=== PATIENT | female | born 1940 | race Caucasian/White ===

== ENCOUNTER 2016-12-28 15:41 | Outpatient (CLI) | payer OTHER, MEDICAID ==
[~2016-12-28] VITALS: Ht 160 cm; Wt 61.4 kg
[~2016-12-28 15:41] MED LIST: ACETAMINOPHEN TAB 650MG DOSE (2X325MG) PO SCH
[2016-12-28 16:00] VITALS: BP 156/60
[2016-12-28] MEDS ORDERED: CARB20TAXR PO (16:02)
[2016-12-28] MEDS ORDERED: [UNRECOGNIZED DRUG - REMARK] PO (16:02)
[2016-12-28] MEDS ORDERED: POTA10TAB PO (16:02)
[2016-12-28] MEDS ORDERED: SODIUM CHLORIDE 0.9% INJ 10 ML SYR IV PRN (16:30)
[2016-12-28] MEDS ORDERED: diphenhydrAMINE 50 MG CAP PO ONE (16:30)
[2016-12-28] MEDS ORDERED: SODIUM CHLORIDE 0.9% INJ 10 ML SYR IV SCH (18:00)
== END 2016-12-28 19:10 | disposition home or self-care (01) ==
LOC: M OPCLI4PR 15:41 → M PED 15:47 → M OPCLI4PR 19:10
PROVIDERS: ATTEND Internal Medicine Medical Oncology
DX: C92.00 Acute myeloblastic leukemia, not having achieved remission (principal); Z88.8 Allergy status to other drugs, medicaments and biological substances; Z88.5 Allergy status to narcotic agent; Z79.899 Other long term (current) drug therapy
CPT/HCPCS: 36430; 86900; 86901; P9036

== ENCOUNTER 2017-01-01 07:20 | Outpatient (CLI) | payer OTHER, MEDICAID ==
[~2017-01-01] VITALS: Ht 160 cm; Wt 61.4 kg
[~2017-01-01 07:20] MED LIST changes: +CARB20TAXR PO; +POTA10TAB PO; +[UNRECOGNIZED DRUG - REMARK] PO; +diphenhydrAMINE 25 MG CAP PO SCH
[2017-01-01] MEDS ORDERED: SODIUM CHLORIDE 0.9% INJ 10 ML SYR IV PRN (08:00)
[2017-01-01] MEDS ORDERED: SODIUM CHLORIDE 0.9% INJ 10 ML SYR IV SCH (18:00)
== END 2017-01-01 14:45 ==
LOC: M INFU 07:20
PROVIDERS: ATTEND Internal Medicine Medical Oncology
DX: C92.00 Acute myeloblastic leukemia, not having achieved remission (principal); Z95.2 Presence of prosthetic heart valve; Z88.8 Allergy status to other drugs, medicaments and biological substances; Z88.5 Allergy status to narcotic agent
CPT/HCPCS: 36415; 36430; 80195; 86850; 86900; 86901; 86920; P9036; P9038

== ENCOUNTER 2017-01-08 07:42 | Outpatient (CLI) | payer OTHER, MEDICAID ==
[~2017-01-08] VITALS: Ht 160 cm; Wt 61.4 kg
[2017-01-08] MEDS ORDERED: SODIUM CHLORIDE 0.9% INJ 10 ML SYR IV PRN (08:00)
[2017-01-08] MEDS ORDERED: SODIUM CHLORIDE 0.9% INJ 10 ML SYR IV ONE ×2 (08:00→10:00)
[2017-01-08] MEDS ORDERED: SODIUM CHLORIDE 0.9% INJ 10 ML SYR IV SCH (18:00)
== END 2017-01-08 10:15 | disposition home or self-care (01) ==
LOC: M INFU 07:42
PROVIDERS: ATTEND Internal Medicine Medical Oncology
DX: C92.00 Acute myeloblastic leukemia, not having achieved remission (principal); Z95.4 Presence of other heart-valve replacement; Z88.8 Allergy status to other drugs, medicaments and biological substances; Z92.21 Personal history of antineoplastic chemotherapy; Z79.899 Other long term (current) drug therapy
CPT/HCPCS: 36430; P9036

== ENCOUNTER 2017-01-23 11:25 | Outpatient (CLI) | payer OTHER, MEDICAID ==
[~2017-01-23] VITALS: Ht 162.6 cm; Wt 59.5 kg
[~2017-01-23 11:25] MED LIST changes: -ACETAMINOPHEN TAB 650MG DOSE (2X325MG) PO SCH; -diphenhydrAMINE 25 MG CAP PO SCH
[2017-01-23 11:35] VITALS: BP 125/59
[2017-01-23] MEDS ORDERED: ACETAMINOPHEN TAB 650MG DOSE (2X325MG) PO ONE (11:45)
[2017-01-23] MEDS ORDERED: SODIUM CHLORIDE 0.9% INJ 10 ML SYR IV PRN (11:45)
[2017-01-23] MEDS ORDERED: diphenhydrAMINE 50 MG CAP PO ONE (11:45)
[2017-01-23] MEDS ORDERED: SODIUM CHLORIDE 0.9% INJ 10 ML SYR IV SCH (18:00)
[2017-01-23 19:50] VITALS: BP 115/56
[2017-01-23 20:50] VITALS: BP 137/66
== END 2017-01-23 21:00 | disposition home or self-care (01) ==
LOC: M INFU 11:25 → M MSPAV 11:29 → M INFU 21:00
PROVIDERS: ATTEND Internal Medicine Medical Oncology
DX: C92.00 Acute myeloblastic leukemia, not having achieved remission (principal); Z88.8 Allergy status to other drugs, medicaments and biological substances; Z88.5 Allergy status to narcotic agent; Z79.899 Other long term (current) drug therapy
CPT/HCPCS: 36430; 86850; 86900; 86901; 86920; P9036; P9038

== ENCOUNTER 2017-02-05 11:02 | Outpatient (CLI) | payer OTHER, MEDICAID ==
[~2017-02-05] VITALS: Ht 160 cm; Wt 61.4 kg
[~2017-02-05 11:02] MED LIST changes: +SODIUM CHLORIDE 0.9% INJ 10 ML SYR IV SCH
[2017-02-05] MEDS ORDERED: diphenhydrAMINE 50 MG CAP PO ONE (11:15)
[2017-02-05] MEDS ORDERED: ACETAMINOPHEN TAB 650MG DOSE (2X325MG) PO ONE (11:30)
[2017-02-05] MEDS ORDERED: SODIUM CHLORIDE 0.9% INJ 10 ML SYR IV PRN (14:00)
[2017-02-05] MEDS ORDERED: SODIUM CHLORIDE 0.9% INJ 10 ML SYR IV SCH (18:00)
== END 2017-02-05 14:00 | disposition home or self-care (01) ==
LOC: M INFU 11:02
PROVIDERS: ATTEND Internal Medicine Medical Oncology
DX: C92.00 Acute myeloblastic leukemia, not having achieved remission (principal); Z95.4 Presence of other heart-valve replacement; Z88.8 Allergy status to other drugs, medicaments and biological substances; Z88.5 Allergy status to narcotic agent; Z92.21 Personal history of antineoplastic chemotherapy; Z79.899 Other long term (current) drug therapy
CPT/HCPCS: 36430; P9036

== ENCOUNTER 2017-02-08 08:43 | Outpatient (CLI) | payer OTHER, MEDICAID ==
[~2017-02-08] VITALS: Ht 160 cm; Wt 61.0 kg
[~2017-02-08 08:43] MED LIST changes: +ACETAMINOPHEN TAB 650MG DOSE (2X325MG) PO SCH; -SODIUM CHLORIDE 0.9% INJ 10 ML SYR IV SCH; +diphenhydrAMINE 25 MG CAP PO SCH
[2017-02-08] MEDS ORDERED: SODIUM CHLORIDE 0.9% INJ 10 ML SYR IV PRN (09:15)
[2017-02-08] MEDS ORDERED: SODIUM CHLORIDE 0.9% INJ 10 ML SYR IV SCH (18:00)
== END 2017-02-08 11:00 | disposition home or self-care (01) ==
LOC: M INFU 08:43
PROVIDERS: ATTEND Internal Medicine Medical Oncology
DX: C92.20 Atypical chronic myeloid leukemia, BCR/ABL-negative, not having achieved remission (principal); Z79.899 Other long term (current) drug therapy; Z88.8 Allergy status to other drugs, medicaments and biological substances; Z95.2 Presence of prosthetic heart valve
CPT/HCPCS: 36430; P9036

== ENCOUNTER 2017-02-12 07:42 | Outpatient (CLI) | payer OTHER, MEDICAID ==
[~2017-02-12] VITALS: Ht 160 cm; Wt 61.4 kg
[2017-02-12] MEDS ORDERED: SODIUM CHLORIDE 0.9% INJ 10 ML SYR IV PRN (08:00)
[2017-02-12] MEDS ORDERED: SODIUM CHLORIDE 0.9% INJ 10 ML SYR IV SCH (18:00)
== END 2017-02-12 12:30 | disposition home or self-care (01) ==
LOC: M INFU 07:42
PROVIDERS: ATTEND Internal Medicine Medical Oncology
DX: C92.00 Acute myeloblastic leukemia, not having achieved remission (principal); Z95.4 Presence of other heart-valve replacement; Z88.8 Allergy status to other drugs, medicaments and biological substances; Z88.5 Allergy status to narcotic agent; Z92.21 Personal history of antineoplastic chemotherapy; Z79.899 Other long term (current) drug therapy
CPT/HCPCS: 36430; 86850; 86900; 86901; 86920; P9036; P9038

== ENCOUNTER 2017-02-15 08:27 | Outpatient (CLI) | payer OTHER, MEDICAID ==
[~2017-02-15] VITALS: Ht 160 cm; Wt 61.4 kg
[2017-02-15] MEDS ORDERED: SODIUM CHLORIDE 0.9% INJ 10 ML SYR IV PRN (08:45)
[2017-02-15] MEDS ORDERED: SODIUM CHLORIDE 0.9% INJ 10 ML SYR IV SCH (18:00)
== END 2017-02-15 14:00 | disposition home or self-care (01) ==
LOC: M INFU 08:27
PROVIDERS: ATTEND Internal Medicine Medical Oncology
DX: C92.00 Acute myeloblastic leukemia, not having achieved remission (principal); Z88.8 Allergy status to other drugs, medicaments and biological substances; Z88.5 Allergy status to narcotic agent; Z95.4 Presence of other heart-valve replacement; Z92.21 Personal history of antineoplastic chemotherapy; Z79.899 Other long term (current) drug therapy
CPT/HCPCS: 36415; 36430; 86850; 86900; 86901; 86920; P9036; P9038

== ENCOUNTER 2017-02-19 08:02 | Outpatient (CLI) | payer OTHER, MEDICAID ==
[~2017-02-19] VITALS: Ht 160 cm; Wt 61.3 kg
[~2017-02-19 08:02] MED LIST changes: -ACETAMINOPHEN TAB 650MG DOSE (2X325MG) PO SCH; -diphenhydrAMINE 25 MG CAP PO SCH
[2017-02-19] MEDS ORDERED: SODIUM CHLORIDE 0.9% INJ 10 ML SYR IV PRN (09:00)
[2017-02-19] MEDS ORDERED: diphenhydrAMINE 50 MG CAP PO ONE (09:00)
[2017-02-19] MEDS ORDERED: ACETAMINOPHEN TAB 650MG DOSE (2X325MG) PO ONE (09:00)
[2017-02-19] MEDS ORDERED: SODIUM CHLORIDE 0.9% INJ 10 ML SYR IV SCH (18:00)
== END 2017-02-19 11:20 | disposition home or self-care (01) ==
LOC: M INFU 08:02 → M MS5PR 09:25 → M INFU 11:20
PROVIDERS: ATTEND Internal Medicine Medical Oncology
DX: C92.00 Acute myeloblastic leukemia, not having achieved remission (principal); Z95.4 Presence of other heart-valve replacement; Z92.21 Personal history of antineoplastic chemotherapy; Z88.8 Allergy status to other drugs, medicaments and biological substances; Z88.5 Allergy status to narcotic agent; Z79.899 Other long term (current) drug therapy
CPT/HCPCS: 36430; P9036

== ENCOUNTER 2017-03-01 09:15 | Outpatient (CLI) | payer OTHER, MEDICAID ==
[2017-03-01] MEDS ORDERED: SODIUM CHLORIDE 0.9% INJ 10 ML SYR IV PRN (09:30)
[2017-03-01] MEDS ORDERED: diphenhydrAMINE 50 MG CAP PO ONE (09:30)
[2017-03-01] MEDS ORDERED: ACETAMINOPHEN TAB 650MG DOSE (2X325MG) PO ONE (09:30)
[2017-03-01] MEDS ORDERED: SODIUM CHLORIDE 0.9% INJ 10 ML SYR IV SCH (18:00)
== END 2017-03-01 13:35 | disposition home or self-care (01) ==
LOC: M INFU 09:15
PROVIDERS: ATTEND Internal Medicine Medical Oncology
DX: C92.00 Acute myeloblastic leukemia, not having achieved remission (principal); Z95.4 Presence of other heart-valve replacement; Z92.21 Personal history of antineoplastic chemotherapy; Z88.8 Allergy status to other drugs, medicaments and biological substances; Z88.5 Allergy status to narcotic agent; Z79.899 Other long term (current) drug therapy
CPT/HCPCS: 36415; 36430; 86850; 86900; 86901; 86920; P9038

== ENCOUNTER 2017-03-05 07:43 | Outpatient (CLI) | payer OTHER, MEDICAID ==
[2017-03-05] MEDS: diphenhydrAMINE 25 MG CAP PO SCH (08:00)
[2017-03-05] MEDS: ACETAMINOPHEN TAB 650MG DOSE (2X325MG) PO SCH (08:01)
[2017-03-05] MEDS: SODIUM CHLORIDE 0.9% INJ 10 ML SYR IV PRN (09:55)
[2017-03-05] MEDS ORDERED: SODIUM CHLORIDE 0.9% INJ 10 ML SYR IV SCH (18:00)
== END 2017-03-05 10:30 | disposition home or self-care (01) ==
LOC: M INFU 07:43
PROVIDERS: ATTEND Internal Medicine Medical Oncology
DX: C92.00 Acute myeloblastic leukemia, not having achieved remission (principal); Z92.21 Personal history of antineoplastic chemotherapy; Z95.4 Presence of other heart-valve replacement; Z96.1 Presence of intraocular lens; Z88.8 Allergy status to other drugs, medicaments and biological substances; Z88.5 Allergy status to narcotic agent; Z79.899 Other long term (current) drug therapy
CPT/HCPCS: 36430; P9036

== ENCOUNTER 2017-03-08 07:40 | Outpatient (CLI) | payer OTHER, MEDICAID ==
[~2017-03-08 07:40] MED LIST changes: +ACETAMINOPHEN TAB 650MG DOSE (2X325MG) PO SCH; +diphenhydrAMINE 25 MG CAP PO SCH
[2017-03-08] MEDS ORDERED: SODIUM CHLORIDE 0.9% INJ 10 ML SYR IV PRN (09:15)
[2017-03-08] MEDS ORDERED: SODIUM CHLORIDE 0.9% INJ 10 ML SYR IV SCH (18:00)
== END 2017-03-08 11:30 | disposition home or self-care (01) ==
LOC: M INFU 07:40
PROVIDERS: ATTEND Internal Medicine Medical Oncology
DX: C92.00 Acute myeloblastic leukemia, not having achieved remission (principal); Z92.21 Personal history of antineoplastic chemotherapy; Z95.2 Presence of prosthetic heart valve; Z96.1 Presence of intraocular lens; Z88.8 Allergy status to other drugs, medicaments and biological substances; Z88.5 Allergy status to narcotic agent; Z79.899 Other long term (current) drug therapy
CPT/HCPCS: 36415; 36430; 86850; 86900; 86901; 86920; P9038

== ENCOUNTER 2017-03-12 07:50 | Outpatient (CLI) | payer OTHER, MEDICAID ==
[~2017-03-12] VITALS: Ht 160 cm; Wt 61.4 kg
[~2017-03-12 07:50] MED LIST changes: +ACETAMINOPHEN TAB 650MG DOSE (2X325MG) PO ONE; -ACETAMINOPHEN TAB 650MG DOSE (2X325MG) PO SCH; +SODIUM CHLORIDE 0.9% INJ 10 ML SYR IV PRN; -diphenhydrAMINE 25 MG CAP PO SCH; +diphenhydrAMINE 50 MG CAP PO ONE
[2017-03-12] MEDS ORDERED: SODIUM CHLORIDE 0.9% INJ 10 ML SYR IV SCH (18:00)
== END 2017-03-12 12:20 | disposition home or self-care (01) ==
LOC: M INFU 07:50
PROVIDERS: ATTEND Internal Medicine Medical Oncology
DX: C92.00 Acute myeloblastic leukemia, not having achieved remission (principal); R01.1 Cardiac murmur, unspecified; Z95.2 Presence of prosthetic heart valve; Z87.442 Personal history of urinary calculi; Z78.0 Asymptomatic menopausal state; Z88.5 Allergy status to narcotic agent; Z88.8 Allergy status to other drugs, medicaments and biological substances
CPT/HCPCS: 36415; 36430; 86850; 86900; 86901; 86920; P9036; P9038

== ENCOUNTER 2017-04-02 08:01 | Outpatient (CLI) | payer OTHER, MEDICAID ==
[~2017-04-02 08:01] MED LIST changes: -ACETAMINOPHEN TAB 650MG DOSE (2X325MG) PO ONE; +ACETAMINOPHEN TAB 650MG DOSE (2X325MG) PO SCH; -SODIUM CHLORIDE 0.9% INJ 10 ML SYR IV PRN; -diphenhydrAMINE 50 MG CAP PO ONE
[2017-04-02] MEDS ORDERED: diphenhydrAMINE 50 MG CAP PO ONE (08:15)
[2017-04-02] MEDS ORDERED: SODIUM CHLORIDE 0.9% INJ 10 ML SYR IV PRN (08:15)
[2017-04-02] MEDS ORDERED: SODIUM CHLORIDE 0.9% INJ 10 ML SYR IV SCH (18:00)
== END 2017-04-02 10:25 | disposition home or self-care (01) ==
LOC: M INFU 08:01
PROVIDERS: ATTEND Internal Medicine Medical Oncology
DX: C92.00 Acute myeloblastic leukemia, not having achieved remission (principal); Z95.2 Presence of prosthetic heart valve; Z88.5 Allergy status to narcotic agent; Z88.8 Allergy status to other drugs, medicaments and biological substances; Z92.21 Personal history of antineoplastic chemotherapy; Z79.899 Other long term (current) drug therapy
CPT/HCPCS: 36430; P9036

== ENCOUNTER 2017-04-05 11:26 | Outpatient (CLI) | payer OTHER, MEDICAID ==
[~2017-04-05 11:26] MED LIST changes: -ACETAMINOPHEN TAB 650MG DOSE (2X325MG) PO SCH
[2017-04-05] MEDS ORDERED: ACETAMINOPHEN TAB 650MG DOSE (2X325MG) PO ONE (12:45)
[2017-04-05] MEDS ORDERED: diphenhydrAMINE 50 MG CAP PO ONE (12:45)
[2017-04-05] MEDS ORDERED: SODIUM CHLORIDE 0.9% INJ 10 ML SYR IV PRN (15:15)
[2017-04-05] MEDS ORDERED: SODIUM CHLORIDE 0.9% INJ 10 ML SYR IV SCH (18:00)
== END 2017-04-05 15:30 | disposition home or self-care (01) ==
LOC: M INFU 11:26
PROVIDERS: ATTEND Internal Medicine Medical Oncology
DX: C92.00 Acute myeloblastic leukemia, not having achieved remission (principal); Z95.2 Presence of prosthetic heart valve; Z96.1 Presence of intraocular lens; Z92.21 Personal history of antineoplastic chemotherapy; Z88.5 Allergy status to narcotic agent; Z88.8 Allergy status to other drugs, medicaments and biological substances; Z79.899 Other long term (current) drug therapy
CPT/HCPCS: 36415; 36430; 86850; 86900; 86901; 86920; P9038

== ENCOUNTER 2017-04-09 10:36 | Outpatient (CLI) | payer OTHER, MEDICAID ==
[~2017-04-09] VITALS: Ht 160 cm; Wt 61.3 kg
[2017-04-09] MEDS ORDERED: diphenhydrAMINE 50 MG CAP PO ONE (11:00)
[2017-04-09] MEDS ORDERED: ACETAMINOPHEN TAB 650MG DOSE (2X325MG) PO ONE (11:00)
[2017-04-09] MEDS ORDERED: SODIUM CHLORIDE 0.9% INJ 10 ML SYR IV PRN (11:00)
[2017-04-09] MEDS ORDERED: SODIUM CHLORIDE 0.9% INJ 10 ML SYR IV SCH (18:00)
== END 2017-04-09 12:55 | disposition home or self-care (01) ==
LOC: M INFU 10:36
PROVIDERS: ATTEND Internal Medicine Medical Oncology
DX: C92.00 Acute myeloblastic leukemia, not having achieved remission (principal); Z92.21 Personal history of antineoplastic chemotherapy; Z96.1 Presence of intraocular lens; Z95.2 Presence of prosthetic heart valve; Z88.8 Allergy status to other drugs, medicaments and biological substances; Z88.5 Allergy status to narcotic agent; Z79.899 Other long term (current) drug therapy
CPT/HCPCS: 36430; P9036

== ENCOUNTER 2017-04-23 10:59 | Outpatient (CLI) | payer OTHER, MEDICAID ==
[~2017-04-23] VITALS: Ht 160 cm; Wt 61.3 kg
[~2017-04-23 10:59] MED LIST changes: +ACETAMINOPHEN TAB 650MG DOSE (2X325MG) PO SCH; +SODIUM CHLORIDE 0.9% INJ 10 ML SYR IV PRN; +diphenhydrAMINE 25 MG CAP PO SCH
[2017-04-23] MEDS ORDERED: SODIUM CHLORIDE 0.9% INJ 10 ML SYR IV SCH (18:00)
== END 2017-04-23 13:00 | disposition home or self-care (01) ==
LOC: M INFU 10:59
PROVIDERS: ATTEND Internal Medicine Medical Oncology
DX: C92.00 Acute myeloblastic leukemia, not having achieved remission (principal); Z95.2 Presence of prosthetic heart valve; Z92.21 Personal history of antineoplastic chemotherapy; Z88.8 Allergy status to other drugs, medicaments and biological substances; Z88.5 Allergy status to narcotic agent; Z79.899 Other long term (current) drug therapy
CPT/HCPCS: 36430; P9036

== ENCOUNTER 2017-04-30 11:00 | Outpatient (CLI) | payer OTHER, MEDICAID ==
[~2017-04-30] VITALS: Ht 160 cm; Wt 61.3 kg
[~2017-04-30 11:00] MED LIST changes: -ACETAMINOPHEN TAB 650MG DOSE (2X325MG) PO SCH; -SODIUM CHLORIDE 0.9% INJ 10 ML SYR IV PRN; -diphenhydrAMINE 25 MG CAP PO SCH
[2017-04-30] MEDS ORDERED: SODIUM CHLORIDE 0.9% INJ 10 ML SYR IV PRN (11:30)
[2017-04-30] MEDS ORDERED: ACETAMINOPHEN TAB 650MG DOSE (2X325MG) PO ONE (11:30)
[2017-04-30] MEDS ORDERED: diphenhydrAMINE 50 MG CAP PO ONE (11:30)
[2017-04-30] MEDS ORDERED: SODIUM CHLORIDE 0.9% INJ 10 ML SYR IV SCH (18:00)
== END 2017-04-30 13:50 | disposition home or self-care (01) ==
LOC: M INFU 11:00
PROVIDERS: ATTEND Internal Medicine Medical Oncology
DX: C92.00 Acute myeloblastic leukemia, not having achieved remission (principal); Z95.2 Presence of prosthetic heart valve; Z96.1 Presence of intraocular lens; Z92.21 Personal history of antineoplastic chemotherapy; Z88.5 Allergy status to narcotic agent; Z88.8 Allergy status to other drugs, medicaments and biological substances; Z79.899 Other long term (current) drug therapy
CPT/HCPCS: 36430; P9036

== ENCOUNTER 2017-05-07 07:42 | Outpatient (CLI) | payer OTHER, MEDICAID ==
[~2017-05-07] VITALS: Ht 160 cm; Wt 61.3 kg
[2017-05-07] MEDS ORDERED: SODIUM CHLORIDE 0.9% INJ 10 ML SYR IV PRN (08:00)
[2017-05-07] MEDS ORDERED: ACETAMINOPHEN TAB 650MG DOSE (2X325MG) PO ONE (08:00)
[2017-05-07] MEDS ORDERED: diphenhydrAMINE 50 MG CAP PO ONE (08:00)
[2017-05-07] MEDS ORDERED: SODIUM CHLORIDE 0.9% INJ 10 ML SYR IV SCH (18:00)
== END 2017-05-07 09:55 | disposition home or self-care (01) ==
LOC: M INFU 07:42
PROVIDERS: ATTEND Internal Medicine Medical Oncology
DX: C92.00 Acute myeloblastic leukemia, not having achieved remission (principal); Z96.1 Presence of intraocular lens; Z92.21 Personal history of antineoplastic chemotherapy; Z95.2 Presence of prosthetic heart valve; Z88.8 Allergy status to other drugs, medicaments and biological substances; Z88.5 Allergy status to narcotic agent; Z79.899 Other long term (current) drug therapy
CPT/HCPCS: 36430; P9036

== ENCOUNTER 2017-05-17 09:35 | Outpatient (CLI) | payer OTHER, MEDICAID ==
[2017-05-17] MEDS: diphenhydrAMINE 25 MG CAP PO (09:56)
[2017-05-17] MEDS: ACETAMINOPHEN TAB 650MG DOSE (2X325MG) PO (09:56)
[2017-05-17 09:59] LABS: IMMEDIATE SPIN CROSSMATCH 1
[2017-05-17 11:43] LABS: IMMEDIATE SPIN CROSSMATCH 1 1
[2017-05-17] MEDS: SODIUM CHLORIDE 0.9% INJ 10 ML SYR IV (13:47)
[2017-05-17] MEDS ORDERED: SODIUM CHLORIDE 0.9% INJ 10 ML SYR IV (18:00)
== END 2017-05-17 13:55 | disposition home or self-care (01) ==
LOC: M INFU 09:35
DX: C92.00 Acute myeloblastic leukemia, not having achieved remission (principal); Z95.2 Presence of prosthetic heart valve; Z96.1 Presence of intraocular lens; Z92.21 Personal history of antineoplastic chemotherapy; Z88.5 Allergy status to narcotic agent; Z88.8 Allergy status to other drugs, medicaments and biological substances; Z79.899 Other long term (current) drug therapy
CPT/HCPCS: 36430

== ENCOUNTER 2017-05-22 07:36 | Outpatient (CLI) | payer OTHER, MEDICAID ==
[2017-05-22] MEDS: ACETAMINOPHEN TAB 650MG DOSE (2X325MG) PO (07:56)
[2017-05-22] MEDS: diphenhydrAMINE 50 MG CAP PO (07:56)
[2017-05-22 08:04] LABS: IMMEDIATE SPIN CROSSMATCH 1
[2017-05-22] MEDS: SODIUM CHLORIDE 0.9% INJ 10 ML SYR IV (09:28)
[2017-05-22] MEDS ORDERED: SODIUM CHLORIDE 0.9% INJ 10 ML SYR IV (18:00)
== END 2017-05-22 09:45 | disposition home or self-care (01) ==
LOC: M INFU 07:36
PROVIDERS: Specialist
DX: C92.90 Myeloid leukemia, unspecified, not having achieved remission (principal); Z79.899 Other long term (current) drug therapy; Z95.2 Presence of prosthetic heart valve; Z88.5 Allergy status to narcotic agent; Z88.8 Allergy status to other drugs, medicaments and biological substances; Z92.21 Personal history of antineoplastic chemotherapy
CPT/HCPCS: 36430

== ENCOUNTER 2017-05-28 08:35 | Outpatient (CLI) | payer OTHER, MEDICAID ==
[2017-05-28] MEDS: diphenhydrAMINE 25 MG CAP PO (09:12)
[2017-05-28] MEDS: ACETAMINOPHEN TAB 650MG DOSE (2X325MG) PO (09:12)
[2017-05-28 09:35] LABS: IMMEDIATE SPIN CROSSMATCH 1
[2017-05-28 11:01] LABS: IMMEDIATE SPIN CROSSMATCH 1 1
[2017-05-28] MEDS: SODIUM CHLORIDE 0.9% INJ 10 ML SYR IV (13:16)
[2017-05-28] MEDS ORDERED: SODIUM CHLORIDE 0.9% INJ 10 ML SYR IV (18:00)
== END 2017-05-28 13:30 | disposition home or self-care (01) ==
LOC: M INFU 08:35
DX: C92.00 Acute myeloblastic leukemia, not having achieved remission (principal); Z79.899 Other long term (current) drug therapy; Z88.5 Allergy status to narcotic agent; Z88.8 Allergy status to other drugs, medicaments and biological substances
CPT/HCPCS: 36430

== ENCOUNTER 2017-05-31 12:31 | Outpatient (CLI) | payer OTHER, MEDICAID ==
[~2017-05-31 12:31] MED LIST changes: -CARB20TAXR PO; -POTA10TAB PO; +SODIUM CHLORIDE 0.9% INJ 10 ML SYR IV; -[UNRECOGNIZED DRUG - REMARK] PO
[2017-05-31] MEDS: ACETAMINOPHEN TAB 650MG DOSE (2X325MG) PO (12:46)
[2017-05-31] MEDS: diphenhydrAMINE 25 MG CAP PO (12:46)
[2017-05-31 13:00] LABS: IMMEDIATE SPIN CROSSMATCH 1
[2017-05-31] MEDS: SODIUM CHLORIDE 0.9% INJ 10 ML SYR IV (14:30)
== END 2017-05-31 14:30 | disposition home or self-care (01) ==
LOC: M INFU 12:31
DX: C92.00 Acute myeloblastic leukemia, not having achieved remission (principal); Z79.899 Other long term (current) drug therapy; Z88.5 Allergy status to narcotic agent; Z88.8 Allergy status to other drugs, medicaments and biological substances
CPT/HCPCS: 36430

== ENCOUNTER 2017-06-05 11:44 | Outpatient (CLI) | payer OTHER, MEDICAID ==
[2017-06-05] MEDS: diphenhydrAMINE 50 MG CAP PO (12:05)
[2017-06-05] MEDS: ACETAMINOPHEN TAB 650MG DOSE (2X325MG) PO (12:05)
[2017-06-05 12:20] LABS: IMMEDIATE SPIN CROSSMATCH 1
[2017-06-05] MEDS: SODIUM CHLORIDE 0.9% INJ 10 ML SYR IV (14:55)
[2017-06-05] MEDS ORDERED: SODIUM CHLORIDE 0.9% INJ 10 ML SYR IV (18:00)
== END 2017-06-05 14:45 | disposition home or self-care (01) ==
LOC: M INFU 11:44
DX: C92.00 Acute myeloblastic leukemia, not having achieved remission (principal); Z95.2 Presence of prosthetic heart valve; Z88.5 Allergy status to narcotic agent; Z92.21 Personal history of antineoplastic chemotherapy; Z79.899 Other long term (current) drug therapy
CPT/HCPCS: 36430

== ENCOUNTER 2017-06-07 11:45 | Outpatient (CLI) | payer OTHER, MEDICAID ==
[2017-06-07] MEDS: diphenhydrAMINE 50 MG CAP PO (12:47)
[2017-06-07] MEDS: ACETAMINOPHEN TAB 650MG DOSE (2X325MG) PO (12:47)
[2017-06-07 13:37] LABS: IMMEDIATE SPIN CROSSMATCH 1 1
[2017-06-07] MEDS: SODIUM CHLORIDE 0.9% INJ 10 ML SYR IV (15:37)
[2017-06-07] MEDS ORDERED: SODIUM CHLORIDE 0.9% INJ 10 ML SYR IV (18:00)
== END 2017-06-07 15:45 | disposition home or self-care (01) ==
LOC: M INFU 11:45
DX: C92.00 Acute myeloblastic leukemia, not having achieved remission (principal); Z88.8 Allergy status to other drugs, medicaments and biological substances; Z88.5 Allergy status to narcotic agent; Z92.21 Personal history of antineoplastic chemotherapy; Z79.899 Other long term (current) drug therapy
CPT/HCPCS: 36430

== ENCOUNTER 2017-06-11 11:33 | Outpatient (CLI) | payer OTHER, MEDICAID ==
[2017-06-11 12:13] LABS: IMMEDIATE SPIN CROSSMATCH 1
[2017-06-11] MEDS: diphenhydrAMINE 50 MG CAP PO (12:17)
[2017-06-11] MEDS: ACETAMINOPHEN TAB 650MG DOSE (2X325MG) PO (12:18)
[2017-06-11] MEDS: SODIUM CHLORIDE 0.9% INJ 10 ML SYR IV (14:11)
[2017-06-11] MEDS ORDERED: SODIUM CHLORIDE 0.9% INJ 10 ML SYR IV (18:00)
[2017-06-18 08:08] LABS: IMMEDIATE SPIN CROSSMATCH 1
== END 2017-06-11 14:25 | disposition home or self-care (01) ==
LOC: M INFU 11:33
DX: C92.00 Acute myeloblastic leukemia, not having achieved remission (principal); Z92.21 Personal history of antineoplastic chemotherapy; Z95.2 Presence of prosthetic heart valve; Z88.5 Allergy status to narcotic agent; Z88.8 Allergy status to other drugs, medicaments and biological substances; Z79.899 Other long term (current) drug therapy
CPT/HCPCS: 36430

== ENCOUNTER 2017-06-18 07:46 | Outpatient (CLI) | payer OTHER, MEDICAID ==
[2017-06-18] MEDS: ACETAMINOPHEN TAB 650MG DOSE (2X325MG) PO (08:07)
[2017-06-18] MEDS: diphenhydrAMINE 25 MG CAP PO ×2 (08:07→08:11)
[2017-06-18] MEDS: SODIUM CHLORIDE 0.9% INJ 10 ML SYR IV (09:38)
[2017-06-18] MEDS ORDERED: SODIUM CHLORIDE 0.9% INJ 10 ML SYR IV (18:00)
== END 2017-06-18 09:40 | disposition home or self-care (01) ==
LOC: M INFU 07:46
DX: C92.00 Acute myeloblastic leukemia, not having achieved remission (principal); Z92.21 Personal history of antineoplastic chemotherapy; Z95.2 Presence of prosthetic heart valve; Z88.5 Allergy status to narcotic agent; Z88.8 Allergy status to other drugs, medicaments and biological substances; Z79.899 Other long term (current) drug therapy
CPT/HCPCS: 36430

== ENCOUNTER 2017-06-21 10:09 | Outpatient (CLI) | payer OTHER, MEDICAID ==
[2017-06-21] MEDS: diphenhydrAMINE 50 MG CAP PO (11:11)
[2017-06-21] MEDS: ACETAMINOPHEN TAB 650MG DOSE (2X325MG) PO (11:11)
[2017-06-21 11:21] LABS: IMMEDIATE SPIN CROSSMATCH 1
[2017-06-21 12:54] LABS: IMMEDIATE SPIN CROSSMATCH 1 1
[2017-06-21] MEDS: SODIUM CHLORIDE 0.9% INJ 10 ML SYR IV (14:56)
[2017-06-21] MEDS ORDERED: SODIUM CHLORIDE 0.9% INJ 10 ML SYR IV (18:00)
== END 2017-06-21 15:00 | disposition home or self-care (01) ==
LOC: M INFU 10:09
DX: C92.00 Acute myeloblastic leukemia, not having achieved remission (principal); Z92.21 Personal history of antineoplastic chemotherapy; Z79.899 Other long term (current) drug therapy; Z88.5 Allergy status to narcotic agent; Z88.8 Allergy status to other drugs, medicaments and biological substances; Z95.2 Presence of prosthetic heart valve
CPT/HCPCS: 36430

== ENCOUNTER 2017-06-25 08:50 | Outpatient (CLI) | payer OTHER, MEDICAID ==
[2017-06-25] MEDS: diphenhydrAMINE 25 MG CAP PO (09:05)
[2017-06-25] MEDS: ACETAMINOPHEN TAB 650MG DOSE (2X325MG) PO (09:06)
[2017-06-25 09:13] LABS: IMMEDIATE SPIN CROSSMATCH 1
[2017-06-25] MEDS: SODIUM CHLORIDE 0.9% INJ 10 ML SYR IV (11:08)
[2017-06-25] MEDS ORDERED: SODIUM CHLORIDE 0.9% INJ 10 ML SYR IV (18:00)
== END 2017-06-25 11:30 | disposition home or self-care (01) ==
LOC: M INFU 08:50
DX: C92.00 Acute myeloblastic leukemia, not having achieved remission (principal); Z79.899 Other long term (current) drug therapy; Z88.5 Allergy status to narcotic agent; Z88.8 Allergy status to other drugs, medicaments and biological substances
CPT/HCPCS: 36430

== ENCOUNTER 2017-07-02 09:21 | Outpatient (CLI) | payer OTHER, MEDICAID ==
[2017-07-02] MEDS: diphenhydrAMINE 25 MG CAP PO (09:29)
[2017-07-02] MEDS: ACETAMINOPHEN TAB 650MG DOSE (2X325MG) PO (09:29)
[2017-07-02 09:40] LABS: IMMEDIATE SPIN CROSSMATCH 1
[2017-07-02 11:15] LABS: IMMEDIATE SPIN CROSSMATCH 1 2
[2017-07-02] MEDS: SODIUM CHLORIDE 0.9% INJ 10 ML SYR IV (13:15)
[2017-07-02] MEDS ORDERED: SODIUM CHLORIDE 0.9% INJ 10 ML SYR IV (18:00)
== END 2017-07-02 13:45 | disposition home or self-care (01) ==
LOC: M INFU 09:21
DX: C92.00 Acute myeloblastic leukemia, not having achieved remission (principal); Z79.899 Other long term (current) drug therapy; Z88.8 Allergy status to other drugs, medicaments and biological substances
CPT/HCPCS: 36430

== ENCOUNTER 2017-07-05 08:40 | Outpatient (CLI) | payer OTHER, MEDICAID ==
[2017-07-05] MEDS: diphenhydrAMINE 25 MG CAP PO (10:35)
[2017-07-05] MEDS: ACETAMINOPHEN TAB 650MG DOSE (2X325MG) PO (10:36)
[2017-07-05 10:57] LABS: IMMEDIATE SPIN CROSSMATCH 1
[2017-07-05] MEDS: SODIUM CHLORIDE 0.9% INJ 10 ML SYR IV (12:26)
[2017-07-05] MEDS ORDERED: SODIUM CHLORIDE 0.9% INJ 10 ML SYR IV (18:00)
== END 2017-07-05 12:45 | disposition home or self-care (01) ==
LOC: M INFU 08:40
DX: C92.90 Myeloid leukemia, unspecified, not having achieved remission (principal); D64.9 Anemia, unspecified; Z95.2 Presence of prosthetic heart valve; Z87.442 Personal history of urinary calculi; Z79.899 Other long term (current) drug therapy; Z88.5 Allergy status to narcotic agent; Z88.8 Allergy status to other drugs, medicaments and biological substances
CPT/HCPCS: 36430

== ENCOUNTER 2017-07-09 10:49 | Outpatient (CLI) | payer OTHER, MEDICAID ==
[2017-07-09] MEDS: diphenhydrAMINE 25 MG CAP PO (11:10)
[2017-07-09] MEDS: ACETAMINOPHEN TAB 650MG DOSE (2X325MG) PO (11:11)
[2017-07-09 11:17] LABS: IMMEDIATE SPIN CROSSMATCH 1
[2017-07-09] MEDS: SODIUM CHLORIDE 0.9% INJ 10 ML SYR IV (12:41)
[2017-07-09] MEDS ORDERED: SODIUM CHLORIDE 0.9% INJ 10 ML SYR IV (18:00)
== END 2017-07-09 12:50 | disposition home or self-care (01) ==
LOC: M INFU 10:49
DX: C92.90 Myeloid leukemia, unspecified, not having achieved remission (principal); D64.9 Anemia, unspecified; Z95.4 Presence of other heart-valve replacement; Z87.442 Personal history of urinary calculi; Z79.899 Other long term (current) drug therapy; Z88.8 Allergy status to other drugs, medicaments and biological substances
CPT/HCPCS: 36430

== ENCOUNTER 2017-07-12 08:40 | Outpatient (CLI) | payer OTHER, MEDICAID ==
[2017-07-12] MEDS: diphenhydrAMINE 25 MG CAP PO (09:07)
[2017-07-12] MEDS: ACETAMINOPHEN TAB 650MG DOSE (2X325MG) PO (09:07)
[2017-07-12 09:12] LABS: IMMEDIATE SPIN CROSSMATCH 1
[2017-07-12 10:52] LABS: IMMEDIATE SPIN CROSSMATCH 1 1
[2017-07-12] MEDS: SODIUM CHLORIDE 0.9% INJ 10 ML SYR IV (12:47)
[2017-07-12] MEDS ORDERED: SODIUM CHLORIDE 0.9% INJ 10 ML SYR IV (18:00)
== END 2017-07-12 13:00 | disposition home or self-care (01) ==
LOC: M INFU 08:40
DX: C92.90 Myeloid leukemia, unspecified, not having achieved remission (principal); D64.9 Anemia, unspecified; Z79.899 Other long term (current) drug therapy; Z88.5 Allergy status to narcotic agent; Z88.8 Allergy status to other drugs, medicaments and biological substances; Z95.4 Presence of other heart-valve replacement; Z87.442 Personal history of urinary calculi
CPT/HCPCS: 36430

== ENCOUNTER 2017-07-16 11:28 | Outpatient (CLI) | payer OTHER, MEDICAID ==
[2017-07-16] MEDS: ACETAMINOPHEN TAB 650MG DOSE (2X325MG) PO (11:41)
[2017-07-16] MEDS: diphenhydrAMINE 25 MG CAP PO (11:42)
[2017-07-16 11:47] LABS: IMMEDIATE SPIN CROSSMATCH 1
[2017-07-16] MEDS: SODIUM CHLORIDE 0.9% INJ 10 ML SYR IV (13:29)
[2017-07-16] MEDS ORDERED: SODIUM CHLORIDE 0.9% INJ 10 ML SYR IV (18:00)
== END 2017-07-16 14:00 ==
LOC: M INFU 11:28
DX: C92.00 Acute myeloblastic leukemia, not having achieved remission (principal); Z79.899 Other long term (current) drug therapy; Z88.5 Allergy status to narcotic agent; Z88.8 Allergy status to other drugs, medicaments and biological substances; Z92.21 Personal history of antineoplastic chemotherapy; Z95.2 Presence of prosthetic heart valve
CPT/HCPCS: 36430

== ENCOUNTER 2017-07-23 08:54 | Outpatient (CLI) | payer OTHER, MEDICAID ==
[2017-07-23] MEDS: ACETAMINOPHEN TAB 650MG DOSE (2X325MG) PO (09:08)
[2017-07-23] MEDS: diphenhydrAMINE 25 MG CAP PO (09:08)
[2017-07-23 09:27] LABS: IMMEDIATE SPIN CROSSMATCH 1
[2017-07-23 11:25] LABS: IMMEDIATE SPIN CROSSMATCH 1 1
[2017-07-23] MEDS: SODIUM CHLORIDE 0.9% INJ 10 ML SYR IV (13:06)
[2017-07-23] MEDS ORDERED: SODIUM CHLORIDE 0.9% INJ 10 ML SYR IV (18:00)
== END 2017-07-23 13:00 | disposition home or self-care (01) ==
LOC: M INFU 08:54
DX: C92.00 Acute myeloblastic leukemia, not having achieved remission (principal); Z88.8 Allergy status to other drugs, medicaments and biological substances; Z88.5 Allergy status to narcotic agent; Z95.2 Presence of prosthetic heart valve; Z92.21 Personal history of antineoplastic chemotherapy; Z79.899 Other long term (current) drug therapy
CPT/HCPCS: 36430

== ENCOUNTER 2017-07-26 10:41 | Outpatient (CLI) | payer OTHER, MEDICAID ==
[2017-07-26] MEDS: ACETAMINOPHEN TAB 650MG DOSE (2X325MG) PO (11:53)
[2017-07-26] MEDS: diphenhydrAMINE 50 MG CAP PO (11:53)
[2017-07-26 12:40] LABS: IMMEDIATE SPIN CROSSMATCH 1
[2017-07-26 14:34] LABS: IMMEDIATE SPIN CROSSMATCH 1 1
[2017-07-26] MEDS: SODIUM CHLORIDE 0.9% INJ 10 ML SYR IV (16:41)
[2017-07-26] MEDS ORDERED: SODIUM CHLORIDE 0.9% INJ 10 ML SYR IV (18:00)
== END 2017-07-26 17:05 | disposition home or self-care (01) ==
LOC: M INFU 10:41
DX: C92.00 Acute myeloblastic leukemia, not having achieved remission (principal); Z79.899 Other long term (current) drug therapy; Z88.5 Allergy status to narcotic agent; Z88.8 Allergy status to other drugs, medicaments and biological substances; Z95.2 Presence of prosthetic heart valve; Z92.21 Personal history of antineoplastic chemotherapy
CPT/HCPCS: 36430

== ENCOUNTER 2017-08-02 11:58 | Outpatient (CLI) | payer OTHER, MEDICAID ==
[2017-08-02] MEDS: ACETAMINOPHEN TAB 650MG DOSE (2X325MG) PO (12:23)
[2017-08-02] MEDS: diphenhydrAMINE 25 MG CAP PO (12:24)
[2017-08-02 12:26] LABS: IMMEDIATE SPIN CROSSMATCH 1
[2017-08-02] MEDS: SODIUM CHLORIDE 0.9% INJ 10 ML SYR IV (14:02)
[2017-08-02] MEDS ORDERED: SODIUM CHLORIDE 0.9% INJ 10 ML SYR IV (18:00)
== END 2017-08-02 14:20 | disposition home or self-care (01) ==
LOC: M INFU 11:58
DX: C92.00 Acute myeloblastic leukemia, not having achieved remission (principal); Z79.899 Other long term (current) drug therapy; Z88.5 Allergy status to narcotic agent; Z88.8 Allergy status to other drugs, medicaments and biological substances
CPT/HCPCS: 36430

== ENCOUNTER 2017-08-06 11:48 | Outpatient (CLI) | payer OTHER, MEDICAID ==
[2017-08-06] MEDS ORDERED: SODIUM CHLORIDE 0.9% INJ 10 ML SYR IV (12:15)
[2017-08-06] MEDS: diphenhydrAMINE 25 MG CAP PO (13:06)
[2017-08-06] MEDS: ACETAMINOPHEN TAB 650MG DOSE (2X325MG) PO (13:06)
[2017-08-06 13:08] LABS: IMMEDIATE SPIN CROSSMATCH 1
[2017-08-06 14:44] LABS: IMMEDIATE SPIN CROSSMATCH 1 1
[2017-08-06] MEDS: SODIUM CHLORIDE 0.9% INJ 10 ML SYR IV (16:24)
== END 2017-08-06 17:05 | disposition home or self-care (01) ==
LOC: M INFU 11:48
DX: C92.00 Acute myeloblastic leukemia, not having achieved remission (principal); Z95.2 Presence of prosthetic heart valve; Z96.1 Presence of intraocular lens; Z88.5 Allergy status to narcotic agent; Z88.8 Allergy status to other drugs, medicaments and biological substances; Z79.899 Other long term (current) drug therapy
CPT/HCPCS: 36430

== ENCOUNTER 2017-08-09 07:50 | Outpatient (CLI) | payer OTHER, MEDICAID ==
[2017-08-09] MEDS: diphenhydrAMINE 25 MG CAP PO (14:56)
[2017-08-09] MEDS: ACETAMINOPHEN TAB 650MG DOSE (2X325MG) PO (14:57)
[2017-08-09 15:02] LABS: IMMEDIATE SPIN CROSSMATCH 1
[2017-08-09] MEDS: SODIUM CHLORIDE 0.9% INJ 10 ML SYR IV (17:02)
== END 2017-08-09 17:05 | disposition home or self-care (01) ==
LOC: M INFU 07:50
DX: C92.00 Acute myeloblastic leukemia, not having achieved remission (principal); Z95.2 Presence of prosthetic heart valve; Z96.1 Presence of intraocular lens; Z88.5 Allergy status to narcotic agent; Z88.8 Allergy status to other drugs, medicaments and biological substances; Z92.21 Personal history of antineoplastic chemotherapy; Z79.899 Other long term (current) drug therapy
CPT/HCPCS: 36430

== ENCOUNTER 2017-08-13 07:47 | Outpatient (CLI) | payer OTHER, MEDICAID ==
[2017-08-13 08:02] LABS: IMMEDIATE SPIN CROSSMATCH 1
[2017-08-13] MEDS: ACETAMINOPHEN TAB 650MG DOSE (2X325MG) PO (08:04)
[2017-08-13] MEDS: diphenhydrAMINE 25 MG CAP PO (08:04)
[2017-08-13] MEDS: SODIUM CHLORIDE 0.9% INJ 10 ML SYR IV (10:00)
[2017-08-13] MEDS ORDERED: SODIUM CHLORIDE 0.9% INJ 10 ML SYR IV (18:00)
== END 2017-08-13 10:30 | disposition home or self-care (01) ==
LOC: M INFU 07:47
DX: C92.00 Acute myeloblastic leukemia, not having achieved remission (principal); D64.9 Anemia, unspecified; Z95.2 Presence of prosthetic heart valve; Z96.1 Presence of intraocular lens; Z88.5 Allergy status to narcotic agent; Z88.8 Allergy status to other drugs, medicaments and biological substances; Z79.899 Other long term (current) drug therapy
CPT/HCPCS: 36430

== ENCOUNTER 2017-08-16 10:35 | Outpatient (CLI) | payer OTHER, MEDICAID ==
[2017-08-16] MEDS ORDERED: SODIUM CHLORIDE 0.9% INJ 10 ML SYR IV ×2 (10:45→18:00)
[2017-08-16] MEDS: ACETAMINOPHEN TAB 650MG DOSE (2X325MG) PO (10:59)
[2017-08-16] MEDS: diphenhydrAMINE 25 MG CAP PO (11:00)
[2017-08-16 11:04] LABS: IMMEDIATE SPIN CROSSMATCH 1
[2017-08-16 12:36] LABS: IMMEDIATE SPIN CROSSMATCH 1 1
== END 2017-08-16 15:15 | disposition home or self-care (01) ==
LOC: M INFU 10:35
DX: C92.00 Acute myeloblastic leukemia, not having achieved remission (principal); D64.9 Anemia, unspecified; Z79.899 Other long term (current) drug therapy; Z88.8 Allergy status to other drugs, medicaments and biological substances; Z95.2 Presence of prosthetic heart valve; Z87.442 Personal history of urinary calculi
CPT/HCPCS: 36430

== ENCOUNTER 2017-08-20 10:34 | Outpatient (CLI) | payer OTHER, MEDICAID ==
[2017-08-20] MEDS: diphenhydrAMINE 25 MG CAP PO (11:11)
[2017-08-20] MEDS: ACETAMINOPHEN TAB 650MG DOSE (2X325MG) PO (11:11)
[2017-08-20 11:27] LABS: IMMEDIATE SPIN CROSSMATCH 1
[2017-08-20] MEDS: SODIUM CHLORIDE 0.9% INJ 10 ML SYR IV (13:20)
[2017-08-20] MEDS ORDERED: SODIUM CHLORIDE 0.9% INJ 10 ML SYR IV (18:00)
== END 2017-08-20 13:30 | disposition home or self-care (01) ==
LOC: M INFU 10:34
DX: C92.00 Acute myeloblastic leukemia, not having achieved remission (principal); D64.9 Anemia, unspecified; Z79.899 Other long term (current) drug therapy; Z88.0 Allergy status to penicillin; Z95.2 Presence of prosthetic heart valve; Z87.442 Personal history of urinary calculi
CPT/HCPCS: 36430

== ENCOUNTER 2017-08-30 06:50 | Outpatient (CLI) | payer OTHER, MEDICAID ==
[2017-08-30] MEDS: diphenhydrAMINE 50 MG CAP PO (07:21)
[2017-08-30] MEDS: ACETAMINOPHEN TAB 650MG DOSE (2X325MG) PO (07:21)
[2017-08-30 07:27] LABS: IMMEDIATE SPIN CROSSMATCH 1
[2017-08-30 10:21] LABS: IMMEDIATE SPIN CROSSMATCH 1 1
[2017-08-30] MEDS: SODIUM CHLORIDE 0.9% INJ 10 ML SYR IV (12:23)
[2017-08-30] MEDS ORDERED: SODIUM CHLORIDE 0.9% INJ 10 ML SYR IV (18:00)
== END 2017-08-30 12:45 | disposition home or self-care (01) ==
LOC: M INFU 06:50
DX: C92.00 Acute myeloblastic leukemia, not having achieved remission (principal); Z79.899 Other long term (current) drug therapy; Z88.8 Allergy status to other drugs, medicaments and biological substances; Z95.2 Presence of prosthetic heart valve; Z87.442 Personal history of urinary calculi
CPT/HCPCS: 36430

== ENCOUNTER 2017-09-03 09:14 | Outpatient (CLI) | payer OTHER, MEDICAID ==
[2017-09-03] MEDS: ACETAMINOPHEN TAB 650MG DOSE (2X325MG) PO (09:25)
[2017-09-03] MEDS: diphenhydrAMINE 25 MG CAP PO (09:26)
[2017-09-03 09:36] LABS: IMMEDIATE SPIN CROSSMATCH 1
[2017-09-03] MEDS: SODIUM CHLORIDE 0.9% INJ 10 ML SYR IV (11:16)
[2017-09-03] MEDS ORDERED: SODIUM CHLORIDE 0.9% INJ 10 ML SYR IV (18:00)
== END 2017-09-03 11:45 | disposition home or self-care (01) ==
LOC: M INFU 09:14
DX: C92.00 Acute myeloblastic leukemia, not having achieved remission (principal); Z79.899 Other long term (current) drug therapy; Z88.8 Allergy status to other drugs, medicaments and biological substances; Z95.2 Presence of prosthetic heart valve; Z87.442 Personal history of urinary calculi
CPT/HCPCS: 36430

== ENCOUNTER 2017-09-06 07:40 | Outpatient (CLI) | payer OTHER, MEDICAID ==
[2017-09-06 07:56] LABS: IMMEDIATE SPIN CROSSMATCH 1
[2017-09-06] MEDS: ACETAMINOPHEN TAB 650MG DOSE (2X325MG) PO (07:56)
[2017-09-06] MEDS: diphenhydrAMINE 25 MG CAP PO (07:56)
[2017-09-06 09:31] LABS: IMMEDIATE SPIN CROSSMATCH 1 1
[2017-09-06] MEDS: SODIUM CHLORIDE 0.9% INJ 10 ML SYR IV (11:38)
[2017-09-06] MEDS ORDERED: SODIUM CHLORIDE 0.9% INJ 10 ML SYR IV (18:00)
== END 2017-09-06 11:55 | disposition home or self-care (01) ==
LOC: M INFU 07:40
DX: C92.00 Acute myeloblastic leukemia, not having achieved remission (principal); D64.9 Anemia, unspecified; Z79.899 Other long term (current) drug therapy; Z88.8 Allergy status to other drugs, medicaments and biological substances; Z95.2 Presence of prosthetic heart valve; Z87.442 Personal history of urinary calculi
CPT/HCPCS: 36430

== ENCOUNTER 2017-09-10 08:44 | Outpatient (CLI) | payer OTHER, MEDICAID ==
[2017-09-10] MEDS: ACETAMINOPHEN TAB 650MG DOSE (2X325MG) PO (08:55)
[2017-09-10] MEDS: diphenhydrAMINE 25 MG CAP PO (08:55)
[2017-09-10 09:05] LABS: IMMEDIATE SPIN CROSSMATCH 1
[2017-09-10] MEDS: SODIUM CHLORIDE 0.9% INJ 10 ML SYR IV (10:32)
[2017-09-10] MEDS ORDERED: SODIUM CHLORIDE 0.9% INJ 10 ML SYR IV (18:00)
== END 2017-09-10 10:50 | disposition home or self-care (01) ==
LOC: M INFU 08:44
DX: C92.00 Acute myeloblastic leukemia, not having achieved remission (principal); D64.9 Anemia, unspecified; Z79.899 Other long term (current) drug therapy; Z88.8 Allergy status to other drugs, medicaments and biological substances; Z87.442 Personal history of urinary calculi; Z95.2 Presence of prosthetic heart valve
CPT/HCPCS: 36430

== ENCOUNTER 2017-09-13 10:56 | Outpatient (CLI) | payer OTHER, MEDICAID ==
[2017-09-13 11:32] LABS: IMMEDIATE SPIN CROSSMATCH 1
[2017-09-13] MEDS: ACETAMINOPHEN TAB 650MG DOSE (2X325MG) PO (11:36)
[2017-09-13] MEDS: diphenhydrAMINE 25 MG CAP PO (11:36)
[2017-09-13 14:16] LABS: IMMEDIATE SPIN CROSSMATCH 1 1
[2017-09-13] MEDS: SODIUM CHLORIDE 0.9% INJ 10 ML SYR IV (16:30)
[2017-09-13] MEDS ORDERED: SODIUM CHLORIDE 0.9% INJ 10 ML SYR IV (18:00)
== END 2017-09-13 16:50 | disposition home or self-care (01) ==
LOC: M INFU 10:56
DX: C92.00 Acute myeloblastic leukemia, not having achieved remission (principal); Z95.2 Presence of prosthetic heart valve; Z92.21 Personal history of antineoplastic chemotherapy; Z88.8 Allergy status to other drugs, medicaments and biological substances; Z88.5 Allergy status to narcotic agent; Z79.899 Other long term (current) drug therapy
CPT/HCPCS: 36430

== ENCOUNTER 2017-09-17 11:29 | Outpatient (CLI) | payer OTHER, MEDICAID ==
[2017-09-17] MEDS: ACETAMINOPHEN TAB 650MG DOSE (2X325MG) PO (11:50)
[2017-09-17] MEDS: diphenhydrAMINE 50 MG CAP PO (11:50)
[2017-09-17 11:58] LABS: IMMEDIATE SPIN CROSSMATCH 1
[2017-09-17] MEDS: SODIUM CHLORIDE 0.9% INJ 10 ML SYR IV (13:49)
[2017-09-17] MEDS ORDERED: SODIUM CHLORIDE 0.9% INJ 10 ML SYR IV (18:00)
== END 2017-09-17 14:15 | disposition home or self-care (01) ==
LOC: M INFU 11:29
DX: C92.00 Acute myeloblastic leukemia, not having achieved remission (principal); Z79.899 Other long term (current) drug therapy; Z88.8 Allergy status to other drugs, medicaments and biological substances; Z95.2 Presence of prosthetic heart valve; Z87.442 Personal history of urinary calculi
CPT/HCPCS: 36430

== ENCOUNTER 2017-09-20 10:57 | Outpatient (CLI) | payer OTHER, MEDICAID ==
[2017-09-20] MEDS: diphenhydrAMINE 25 MG CAP PO (11:18)
[2017-09-20] MEDS: ACETAMINOPHEN TAB 650MG DOSE (2X325MG) PO (11:18)
[2017-09-20 11:24] LABS: IMMEDIATE SPIN CROSSMATCH 1
[2017-09-20 13:05] LABS: IMMEDIATE SPIN CROSSMATCH 1 1
[2017-09-20] MEDS: SODIUM CHLORIDE 0.9% INJ 10 ML SYR IV (15:28)
[2017-09-20] MEDS ORDERED: SODIUM CHLORIDE 0.9% INJ 10 ML SYR IV (18:00)
== END 2017-09-20 15:30 | disposition home or self-care (01) ==
LOC: M INFU 10:57
DX: C92.00 Acute myeloblastic leukemia, not having achieved remission (principal); D64.9 Anemia, unspecified; Z79.899 Other long term (current) drug therapy; Z88.8 Allergy status to other drugs, medicaments and biological substances; Z95.2 Presence of prosthetic heart valve; Z87.442 Personal history of urinary calculi
CPT/HCPCS: 36430

== ENCOUNTER 2017-09-24 08:36 | Outpatient (CLI) | payer OTHER, MEDICAID ==
[~2017-09-24 08:36] MED LIST changes: -SODIUM CHLORIDE 0.9% INJ 10 ML SYR IV; +diphenhydrAMINE 25 MG CAP PO
[2017-09-24] MEDS: ACETAMINOPHEN TAB 650MG DOSE (2X325MG) PO (08:57)
[2017-09-24] MEDS: diphenhydrAMINE 25 MG CAP PO (08:57)
[2017-09-24 08:58] LABS: IMMEDIATE SPIN CROSSMATCH 1
[2017-09-24] MEDS: SODIUM CHLORIDE 0.9% INJ 10 ML SYR IV (10:56)
[2017-09-24] MEDS ORDERED: SODIUM CHLORIDE 0.9% INJ 10 ML SYR IV (18:00)
== END 2017-09-24 11:20 | disposition home or self-care (01) ==
LOC: M INFU 08:36
DX: C92.00 Acute myeloblastic leukemia, not having achieved remission (principal); Z79.899 Other long term (current) drug therapy; Z88.8 Allergy status to other drugs, medicaments and biological substances; Z95.2 Presence of prosthetic heart valve; Z87.442 Personal history of urinary calculi
CPT/HCPCS: 36430

== ENCOUNTER 2017-09-27 09:09 | Outpatient (CLI) | payer OTHER, MEDICAID ==
[2017-09-27] MEDS: ACETAMINOPHEN TAB 650MG DOSE (2X325MG) PO (09:34)
[2017-09-27] MEDS: diphenhydrAMINE 50 MG CAP PO (09:34)
[2017-09-27 09:36] LABS: IMMEDIATE SPIN CROSSMATCH 1
[2017-09-27 12:17] LABS: IMMEDIATE SPIN CROSSMATCH 1 1
[2017-09-27] MEDS: SODIUM CHLORIDE 0.9% INJ 10 ML SYR IV (14:32)
[2017-09-27] MEDS ORDERED: SODIUM CHLORIDE 0.9% INJ 10 ML SYR IV (18:00)
== END 2017-09-27 14:30 | disposition home or self-care (01) ==
LOC: M INFU 09:09
DX: C92.00 Acute myeloblastic leukemia, not having achieved remission (principal); Z79.899 Other long term (current) drug therapy; Z88.8 Allergy status to other drugs, medicaments and biological substances; Z95.2 Presence of prosthetic heart valve; Z87.442 Personal history of urinary calculi
CPT/HCPCS: 36430

== ENCOUNTER 2017-10-01 08:09 | Outpatient (CLI) | payer OTHER, MEDICAID ==
[2017-10-01] MEDS: diphenhydrAMINE 50 MG CAP PO (08:25)
[2017-10-01] MEDS: ACETAMINOPHEN TAB 650MG DOSE (2X325MG) PO (08:25)
[2017-10-01 08:29] LABS: IMMEDIATE SPIN CROSSMATCH 1
[2017-10-01] MEDS: SODIUM CHLORIDE 0.9% INJ 10 ML SYR IV (09:54)
[2017-10-01] MEDS ORDERED: SODIUM CHLORIDE 0.9% INJ 10 ML SYR IV (18:00)
== END 2017-10-01 10:10 | disposition home or self-care (01) ==
LOC: M INFU 08:09
DX: C92.00 Acute myeloblastic leukemia, not having achieved remission (principal); Z79.899 Other long term (current) drug therapy; Z88.8 Allergy status to other drugs, medicaments and biological substances; Z87.442 Personal history of urinary calculi; Z95.2 Presence of prosthetic heart valve
CPT/HCPCS: 36430

== ENCOUNTER 2017-10-04 08:26 | Outpatient (CLI) | payer OTHER, MEDICAID ==
[2017-10-04 08:36] LABS: IMMEDIATE SPIN CROSSMATCH 1
[2017-10-04] MEDS: diphenhydrAMINE 50 MG CAP PO (08:54)
[2017-10-04] MEDS: ACETAMINOPHEN TAB 650MG DOSE (2X325MG) PO (08:54)
[2017-10-04 11:15] LABS: IMMEDIATE SPIN CROSSMATCH 1 1
[2017-10-04] MEDS: SODIUM CHLORIDE 0.9% INJ 10 ML SYR IV (13:30)
[2017-10-04] MEDS ORDERED: SODIUM CHLORIDE 0.9% INJ 10 ML SYR IV (18:00)
== END 2017-10-04 13:45 | disposition home or self-care (01) ==
LOC: M INFU 08:26
DX: C92.00 Acute myeloblastic leukemia, not having achieved remission (principal); D64.9 Anemia, unspecified; Z79.899 Other long term (current) drug therapy; Z88.8 Allergy status to other drugs, medicaments and biological substances; Z95.2 Presence of prosthetic heart valve; Z87.442 Personal history of urinary calculi
CPT/HCPCS: 36430

== ENCOUNTER 2017-10-08 07:35 | Outpatient (CLI) | payer OTHER, MEDICAID ==
[2017-10-08 07:56] LABS: IMMEDIATE SPIN CROSSMATCH 1
[2017-10-08] MEDS: ACETAMINOPHEN TAB 650MG DOSE (2X325MG) PO (07:56)
[2017-10-08] MEDS: diphenhydrAMINE 25 MG CAP PO (07:58)
[2017-10-08] MEDS: SODIUM CHLORIDE 0.9% INJ 10 ML SYR IV (09:00)
[2017-10-08] MEDS ORDERED: SODIUM CHLORIDE 0.9% INJ 10 ML SYR IV (18:00)
== END 2017-10-08 09:30 | disposition home or self-care (01) ==
LOC: M INFU 07:35
DX: C92.00 Acute myeloblastic leukemia, not having achieved remission (principal); Z79.899 Other long term (current) drug therapy; Z88.8 Allergy status to other drugs, medicaments and biological substances; Z95.2 Presence of prosthetic heart valve; Z87.442 Personal history of urinary calculi
CPT/HCPCS: 36430

== ENCOUNTER 2017-10-16 11:05 | Outpatient (CLI) | payer OTHER, MEDICAID ==
[~2017-10-16 11:05] MED LIST changes: +SODIUM CHLORIDE 0.9% INJ 10 ML SYR IV; -diphenhydrAMINE 25 MG CAP PO
[2017-10-16] MEDS ORDERED: diphenhydrAMINE 50 MG CAP As Ordered (11:15)
[2017-10-16] MEDS ORDERED: ACETAMINOPHEN 325 MG TAB As Ordered (11:17)
[2017-10-16] MEDS: ACETAMINOPHEN TAB 650MG DOSE (2X325MG) PO (11:30)
[2017-10-16] MEDS: diphenhydrAMINE 25 MG CAP PO (11:30)
[2017-10-16 11:38] LABS: IMMEDIATE SPIN CROSSMATCH 1
[2017-10-16 13:17] LABS: IMMEDIATE SPIN CROSSMATCH 1 1
== END 2017-10-16 15:05 | disposition home or self-care (01) ==
LOC: M INFU 11:05
DX: C92.00 Acute myeloblastic leukemia, not having achieved remission (principal); Z79.899 Other long term (current) drug therapy; Z95.2 Presence of prosthetic heart valve; Z87.442 Personal history of urinary calculi
CPT/HCPCS: 36430

== ENCOUNTER 2017-10-18 08:48 | Outpatient (CLI) | payer OTHER, MEDICAID ==
[2017-10-18] MEDS: ACETAMINOPHEN TAB 650MG DOSE (2X325MG) PO (09:12)
[2017-10-18] MEDS: diphenhydrAMINE 25 MG CAP PO (09:13)
[2017-10-18 09:22] LABS: IMMEDIATE SPIN CROSSMATCH 1
[2017-10-18] MEDS: SODIUM CHLORIDE 0.9% INJ 10 ML SYR IV (11:34)
[2017-10-18] MEDS ORDERED: SODIUM CHLORIDE 0.9% INJ 10 ML SYR IV (18:00)
== END 2017-10-18 11:45 | disposition home or self-care (01) ==
LOC: M INFU 08:48
DX: C92.00 Acute myeloblastic leukemia, not having achieved remission (principal); D64.9 Anemia, unspecified; Z79.899 Other long term (current) drug therapy; Z88.8 Allergy status to other drugs, medicaments and biological substances; Z95.2 Presence of prosthetic heart valve; Z87.442 Personal history of urinary calculi
CPT/HCPCS: 36430

== ENCOUNTER 2017-10-22 07:15 | Outpatient (CLI) | payer OTHER, MEDICAID ==
[2017-10-22] MEDS: diphenhydrAMINE 25 MG CAP PO (07:38)
[2017-10-22] MEDS: ACETAMINOPHEN TAB 650MG DOSE (2X325MG) PO (07:38)
[2017-10-22] MEDS ORDERED: SODIUM CHLORIDE 0.9% INJ 10 ML SYR IV ×2 (07:45→18:00)
[2017-10-22 09:00] LABS: IMMEDIATE SPIN CROSSMATCH 1 1
[2017-10-22 11:40] LABS: IMMEDIATE SPIN CROSSMATCH 1
== END 2017-10-22 15:50 | disposition home or self-care (01) ==
LOC: M INFU 07:15
DX: C92.00 Acute myeloblastic leukemia, not having achieved remission (principal); D64.9 Anemia, unspecified; Z79.899 Other long term (current) drug therapy; Z88.8 Allergy status to other drugs, medicaments and biological substances; Z95.2 Presence of prosthetic heart valve; Z87.442 Personal history of urinary calculi
CPT/HCPCS: 36430

== ENCOUNTER 2017-10-25 07:06 | Outpatient (CLI) | payer OTHER, MEDICAID ==
[2017-10-25] MEDS: diphenhydrAMINE 25 MG CAP PO (07:18)
[2017-10-25] MEDS: ACETAMINOPHEN TAB 650MG DOSE (2X325MG) PO (07:18)
[2017-10-25 07:24] LABS: IMMEDIATE SPIN CROSSMATCH 1
[2017-10-25] MEDS: SODIUM CHLORIDE 0.9% INJ 10 ML SYR IV (08:43)
[2017-10-25] MEDS ORDERED: SODIUM CHLORIDE 0.9% INJ 10 ML SYR IV (18:00)
== END 2017-10-25 09:00 | disposition home or self-care (01) ==
LOC: M INFU 07:06
DX: C92.00 Acute myeloblastic leukemia, not having achieved remission (principal); D64.9 Anemia, unspecified; Z79.899 Other long term (current) drug therapy; Z88.8 Allergy status to other drugs, medicaments and biological substances; Z87.442 Personal history of urinary calculi; Z95.2 Presence of prosthetic heart valve
CPT/HCPCS: 36430

== ENCOUNTER 2017-10-29 07:40 | Outpatient (CLI) | payer OTHER, MEDICAID ==
[2017-10-29] MEDS: ACETAMINOPHEN TAB 650MG DOSE (2X325MG) PO (08:00)
[2017-10-29] MEDS: diphenhydrAMINE 50 MG CAP PO (08:00)
[2017-10-29 08:03] LABS: IMMEDIATE SPIN CROSSMATCH 1
[2017-10-29] MEDS: SODIUM CHLORIDE 0.9% INJ 10 ML SYR IV (09:18)
[2017-10-29] MEDS ORDERED: SODIUM CHLORIDE 0.9% INJ 10 ML SYR IV (18:00)
== END 2017-10-29 10:20 | disposition home or self-care (01) ==
LOC: M INFU 07:40
DX: C92.00 Acute myeloblastic leukemia, not having achieved remission (principal); Z95.4 Presence of other heart-valve replacement; Z92.21 Personal history of antineoplastic chemotherapy; Z79.899 Other long term (current) drug therapy; Z88.5 Allergy status to narcotic agent; Z88.8 Allergy status to other drugs, medicaments and biological substances
CPT/HCPCS: 36430

== ENCOUNTER 2017-11-01 07:08 | Outpatient (CLI) | payer OTHER, MEDICAID ==
[2017-11-01] MEDS: ACETAMINOPHEN TAB 650MG DOSE (2X325MG) PO (07:24)
[2017-11-01] MEDS: diphenhydrAMINE 25 MG CAP PO (07:24)
[2017-11-01 07:27] LABS: IMMEDIATE SPIN CROSSMATCH 1
[2017-11-01 09:01] LABS: IMMEDIATE SPIN CROSSMATCH 1 1
[2017-11-01] MEDS: SODIUM CHLORIDE 0.9% INJ 10 ML SYR IV (10:08)
[2017-11-01] MEDS ORDERED: SODIUM CHLORIDE 0.9% INJ 10 ML SYR IV (18:00)
== END 2017-11-01 11:10 | disposition home or self-care (01) ==
LOC: M INFU 07:08
DX: C92.00 Acute myeloblastic leukemia, not having achieved remission (principal); D64.9 Anemia, unspecified; Z79.899 Other long term (current) drug therapy; Z88.8 Allergy status to other drugs, medicaments and biological substances; Z87.442 Personal history of urinary calculi; Z95.2 Presence of prosthetic heart valve
CPT/HCPCS: 36430

== ENCOUNTER → 2017-11-06 | Outpatient (REF) | payer OTHER, MEDICAID ==
[2017-11-07 12:08] LABS: IMMEDIATE SPIN CROSSMATCH 1
[2017-11-07 13:36] LABS: IMMEDIATE SPIN CROSSMATCH 1 2
== END ==
LOC: M LAB REF 17:23
DX: C95.90 Leukemia, unspecified not having achieved remission (principal)
CPT/HCPCS: 86900

== ENCOUNTER 2017-11-07 11:49 | Outpatient (CLI) | payer OTHER, MEDICAID ==
[2017-11-07] MEDS: diphenhydrAMINE 25 MG CAP PO (12:11)
[2017-11-07] MEDS: ACETAMINOPHEN TAB 650MG DOSE (2X325MG) PO (12:11)
[2017-11-07] MEDS: SODIUM CHLORIDE 0.9% INJ 10 ML SYR IV (15:13)
[2017-11-07] MEDS ORDERED: SODIUM CHLORIDE 0.9% INJ 10 ML SYR IV (18:00)
== END 2017-11-07 16:00 | disposition home or self-care (01) ==
LOC: M INFU 11:49
DX: C92.00 Acute myeloblastic leukemia, not having achieved remission (principal); Z79.899 Other long term (current) drug therapy; Z88.8 Allergy status to other drugs, medicaments and biological substances; Z95.2 Presence of prosthetic heart valve; Z87.442 Personal history of urinary calculi
CPT/HCPCS: 36430

== ENCOUNTER 2017-11-12 07:37 | Outpatient (CLI) | payer OTHER, MEDICAID ==
[2017-11-12] MEDS: ACETAMINOPHEN TAB 650MG DOSE (2X325MG) PO (08:02)
[2017-11-12] MEDS: diphenhydrAMINE 25 MG CAP PO (08:03)
[2017-11-12 08:11] LABS: IMMEDIATE SPIN CROSSMATCH 1 2
[2017-11-12 12:10] LABS: IMMEDIATE SPIN CROSSMATCH 1 2
[2017-11-12] MEDS: SODIUM CHLORIDE 0.9% INJ 10 ML SYR IV (14:15)
[2017-11-12] MEDS ORDERED: SODIUM CHLORIDE 0.9% INJ 10 ML SYR IV (18:00)
== END 2017-11-12 14:15 | disposition home or self-care (01) ==
LOC: M INFU 07:37
DX: C92.00 Acute myeloblastic leukemia, not having achieved remission (principal); Z95.2 Presence of prosthetic heart valve; Z79.899 Other long term (current) drug therapy; Z92.21 Personal history of antineoplastic chemotherapy; Z88.8 Allergy status to other drugs, medicaments and biological substances; Z88.5 Allergy status to narcotic agent
CPT/HCPCS: 36430

== ENCOUNTER 2017-11-15 11:36 | Outpatient (CLI) | payer OTHER, MEDICAID ==
[2017-11-15] MEDS: diphenhydrAMINE 25 MG CAP PO (11:52)
[2017-11-15] MEDS: ACETAMINOPHEN TAB 650MG DOSE (2X325MG) PO (11:52)
[2017-11-15 11:58] LABS: IMMEDIATE SPIN CROSSMATCH 1
[2017-11-15 13:11] LABS: IMMEDIATE SPIN CROSSMATCH 1 1
[2017-11-15] MEDS: SODIUM CHLORIDE 0.9% INJ 10 ML SYR IV (15:41)
[2017-11-15] MEDS ORDERED: SODIUM CHLORIDE 0.9% INJ 10 ML SYR IV (18:00)
== END 2017-11-15 16:00 | disposition home or self-care (01) ==
LOC: M INFU 11:36
DX: C92.00 Acute myeloblastic leukemia, not having achieved remission (principal); Z95.2 Presence of prosthetic heart valve; Z88.8 Allergy status to other drugs, medicaments and biological substances; Z88.5 Allergy status to narcotic agent; Z92.21 Personal history of antineoplastic chemotherapy; Z79.899 Other long term (current) drug therapy
CPT/HCPCS: 36430

== ENCOUNTER 2017-11-19 11:19 | Outpatient (CLI) | payer OTHER, MEDICAID ==
[2017-11-19] MEDS: diphenhydrAMINE 25 MG CAP PO (11:42)
[2017-11-19] MEDS: ACETAMINOPHEN TAB 650MG DOSE (2X325MG) PO (11:43)
[2017-11-19 11:46] LABS: IMMEDIATE SPIN CROSSMATCH 1
[2017-11-19 13:14] LABS: IMMEDIATE SPIN CROSSMATCH 1 2
[2017-11-19] MEDS: SODIUM CHLORIDE 0.9% INJ 10 ML SYR IV (17:09)
[2017-11-19] MEDS ORDERED: SODIUM CHLORIDE 0.9% INJ 10 ML SYR IV (18:00)
== END 2017-11-19 17:20 | disposition home or self-care (01) ==
LOC: M INFU 11:19
DX: C92.00 Acute myeloblastic leukemia, not having achieved remission (principal); Z95.2 Presence of prosthetic heart valve; Z92.21 Personal history of antineoplastic chemotherapy; Z79.899 Other long term (current) drug therapy; Z88.8 Allergy status to other drugs, medicaments and biological substances; Z88.5 Allergy status to narcotic agent
CPT/HCPCS: 36430

== ENCOUNTER 2017-11-29 07:43 | Outpatient (CLI) | payer OTHER, MEDICAID ==
[2017-11-29] MEDS: ACETAMINOPHEN TAB 650MG DOSE (2X325MG) PO (07:01)
[2017-11-29] MEDS ORDERED: SODIUM CHLORIDE 0.9% INJ 10 ML SYR IV ×2 (08:00→18:00)
[2017-11-29 08:05] LABS: IMMEDIATE SPIN CROSSMATCH 1
[2017-11-29] MEDS: diphenhydrAMINE 50 MG CAP PO (08:08)
[2017-11-29 10:18] LABS: IMMEDIATE SPIN CROSSMATCH 1 1
== END 2017-11-29 12:00 | disposition home or self-care (01) ==
LOC: M INFU 07:43
DX: C92.00 Acute myeloblastic leukemia, not having achieved remission (principal); Z95.2 Presence of prosthetic heart valve; Z88.5 Allergy status to narcotic agent; Z88.8 Allergy status to other drugs, medicaments and biological substances; Z92.21 Personal history of antineoplastic chemotherapy; Z79.899 Other long term (current) drug therapy
CPT/HCPCS: 36430

== ENCOUNTER 2017-12-03 07:04 | Outpatient (CLI) | payer OTHER, MEDICAID ==
[2017-12-03 07:26] LABS: IMMEDIATE SPIN CROSSMATCH 1
[2017-12-03] MEDS: diphenhydrAMINE 25 MG CAP PO (08:25)
[2017-12-03] MEDS: ACETAMINOPHEN TAB 650MG DOSE (2X325MG) PO (08:25)
[2017-12-03 11:08] LABS: IMMEDIATE SPIN CROSSMATCH 1 2
[2017-12-03] MEDS: SODIUM CHLORIDE 0.9% INJ 10 ML SYR IV (13:12)
[2017-12-03] MEDS ORDERED: SODIUM CHLORIDE 0.9% INJ 10 ML SYR IV (18:00)
== END 2017-12-03 13:30 | disposition home or self-care (01) ==
LOC: M INFU 07:04
DX: C92.00 Acute myeloblastic leukemia, not having achieved remission (principal); Z95.2 Presence of prosthetic heart valve; Z92.21 Personal history of antineoplastic chemotherapy; Z79.899 Other long term (current) drug therapy; Z88.5 Allergy status to narcotic agent; Z88.8 Allergy status to other drugs, medicaments and biological substances
CPT/HCPCS: 36430

== ENCOUNTER 2017-12-06 07:29 | Outpatient (CLI) | payer OTHER, MEDICAID ==
[2017-12-06] MEDS: ACETAMINOPHEN TAB 650MG DOSE (2X325MG) PO (07:43)
[2017-12-06] MEDS: diphenhydrAMINE 25 MG CAP PO (07:43)
[2017-12-06 07:49] LABS: IMMEDIATE SPIN CROSSMATCH 1
[2017-12-06] MEDS: SODIUM CHLORIDE 0.9% INJ 10 ML SYR IV (09:40)
[2017-12-06] MEDS ORDERED: SODIUM CHLORIDE 0.9% INJ 10 ML SYR IV (18:00)
== END 2017-12-06 09:45 | disposition home or self-care (01) ==
LOC: M INFU 07:29
DX: C92.00 Acute myeloblastic leukemia, not having achieved remission (principal); D64.9 Anemia, unspecified; Z79.899 Other long term (current) drug therapy; Z88.8 Allergy status to other drugs, medicaments and biological substances; Z95.2 Presence of prosthetic heart valve; Z87.442 Personal history of urinary calculi
CPT/HCPCS: 36430

== ENCOUNTER 2017-12-10 07:32 | Outpatient (CLI) | payer OTHER, MEDICAID ==
[2017-12-10] MEDS: diphenhydrAMINE 25 MG CAP PO (07:00)
[2017-12-10] MEDS: ACETAMINOPHEN TAB 650MG DOSE (2X325MG) PO (07:01)
[2017-12-10] MEDS ORDERED: diphenhydrAMINE 50 MG CAP As Ordered (07:39)
[2017-12-10] MEDS ORDERED: ACETAMINOPHEN 325 MG TAB As Ordered (07:40)
[2017-12-10] MEDS: SODIUM CHLORIDE 0.9% INJ 10 ML SYR IV ×2 (07:54→11:38)
[2017-12-10 08:04] LABS: IMMEDIATE SPIN CROSSMATCH 1
[2017-12-10 10:05] LABS: IMMEDIATE SPIN CROSSMATCH 1 1
== END 2017-12-10 12:30 | disposition home or self-care (01) ==
LOC: M INFU 07:32
PROVIDERS: Pediatrics
DX: C92.90 Myeloid leukemia, unspecified, not having achieved remission (principal); Z79.899 Other long term (current) drug therapy; Z88.8 Allergy status to other drugs, medicaments and biological substances; Z87.442 Personal history of urinary calculi; Z95.2 Presence of prosthetic heart valve
CPT/HCPCS: 36430

== ENCOUNTER 2017-12-13 09:18 | Outpatient (CLI) | payer OTHER, MEDICAID ==
[2017-12-13 09:49] LABS: IMMEDIATE SPIN CROSSMATCH 1
[2017-12-13] MEDS: ACETAMINOPHEN TAB 650MG DOSE (2X325MG) PO (12:20)
[2017-12-13] MEDS: diphenhydrAMINE 50 MG CAP PO (12:21)
[2017-12-13 14:21] LABS: IMMEDIATE SPIN CROSSMATCH 1 2
[2017-12-13] MEDS: SODIUM CHLORIDE 0.9% INJ 10 ML SYR IV ×2 (16:31→16:32)
== END 2017-12-13 17:00 | disposition home or self-care (01) ==
LOC: M INFU 09:18
DX: C92.00 Acute myeloblastic leukemia, not having achieved remission (principal); Z95.2 Presence of prosthetic heart valve; Z88.8 Allergy status to other drugs, medicaments and biological substances; Z88.5 Allergy status to narcotic agent; Z92.21 Personal history of antineoplastic chemotherapy; Z79.899 Other long term (current) drug therapy
CPT/HCPCS: 36430

== ENCOUNTER 2017-12-17 07:34 | Outpatient (CLI) | payer OTHER, MEDICAID ==
[2017-12-17] MEDS ORDERED: SODIUM CHLORIDE 0.9% INJ 10 ML SYR IV ×2 (08:15→18:00)
[2017-12-17] MEDS: ACETAMINOPHEN TAB 650MG DOSE (2X325MG) PO (09:00)
[2017-12-17] MEDS: diphenhydrAMINE 25 MG CAP PO (09:00)
[2017-12-17 09:02] LABS: IMMEDIATE SPIN CROSSMATCH 1 1
[2017-12-17 11:51] LABS: IMMEDIATE SPIN CROSSMATCH 1
== END 2017-12-17 13:45 | disposition home or self-care (01) ==
LOC: M INFU 07:34
DX: C92.00 Acute myeloblastic leukemia, not having achieved remission (principal); Z95.2 Presence of prosthetic heart valve; Z88.8 Allergy status to other drugs, medicaments and biological substances; Z88.5 Allergy status to narcotic agent; Z79.899 Other long term (current) drug therapy; Z92.21 Personal history of antineoplastic chemotherapy
CPT/HCPCS: 36430

== ENCOUNTER 2017-12-20 07:36 | Outpatient (CLI) | payer OTHER, MEDICAID ==
[2017-12-20] MEDS: diphenhydrAMINE 25 MG CAP PO (07:00)
[2017-12-20] MEDS ORDERED: diphenhydrAMINE 50 MG CAP As Ordered (08:04)
[2017-12-20] MEDS ORDERED: ACETAMINOPHEN TAB 650MG DOSE (2X325MG) As Ordered (08:05)
[2017-12-20] MEDS: ACETAMINOPHEN TAB 650MG DOSE (2X325MG) PO (08:07)
[2017-12-20] MEDS ORDERED: SODIUM CHLORIDE 0.9% INJ 10 ML SYR IV ×2 (08:15→18:00)
[2017-12-20 08:19] LABS: IMMEDIATE SPIN CROSSMATCH 1
== END 2017-12-20 10:35 | disposition home or self-care (01) ==
LOC: M INFU 07:36
DX: C92.00 Acute myeloblastic leukemia, not having achieved remission (principal); Z95.2 Presence of prosthetic heart valve; Z92.21 Personal history of antineoplastic chemotherapy; Z88.5 Allergy status to narcotic agent; Z88.8 Allergy status to other drugs, medicaments and biological substances; Z79.899 Other long term (current) drug therapy
CPT/HCPCS: 36430

== ENCOUNTER 2017-12-24 07:18 | Outpatient (CLI) | payer OTHER, MEDICAID ==
[2017-12-24] MEDS: ACETAMINOPHEN TAB 650MG DOSE (2X325MG) PO (07:37)
[2017-12-24] MEDS: diphenhydrAMINE 25 MG CAP PO (07:38)
[2017-12-24 07:55] LABS: IMMEDIATE SPIN CROSSMATCH 1
[2017-12-24 09:57] LABS: IMMEDIATE SPIN CROSSMATCH 1 1
== END 2017-12-24 12:05 | disposition home or self-care (01) ==
LOC: M INFU 07:18
DX: C92.00 Acute myeloblastic leukemia, not having achieved remission (principal); Z95.2 Presence of prosthetic heart valve; Z88.5 Allergy status to narcotic agent; Z88.3 Allergy status to other anti-infective agents; Z92.21 Personal history of antineoplastic chemotherapy; Z79.899 Other long term (current) drug therapy
CPT/HCPCS: 36430

== ENCOUNTER 2017-12-27 08:04 | Outpatient (CLI) | payer OTHER, MEDICAID ==
[2017-12-27] MEDS: diphenhydrAMINE 25 MG CAP PO (07:00)
[2017-12-27] MEDS: ACETAMINOPHEN TAB 650MG DOSE (2X325MG) PO (07:01)
[2017-12-27 08:21] LABS: IMMEDIATE SPIN CROSSMATCH 1
[2017-12-27] MEDS ORDERED: SODIUM CHLORIDE 0.9% INJ 10 ML SYR IV ×2 (08:30→18:00)
[2017-12-27 10:06] LABS: IMMEDIATE SPIN CROSSMATCH 1 1
== END 2017-12-27 12:30 | disposition home or self-care (01) ==
LOC: M INFU 08:04
DX: C92.00 Acute myeloblastic leukemia, not having achieved remission (principal); Z95.2 Presence of prosthetic heart valve; Z88.8 Allergy status to other drugs, medicaments and biological substances; Z88.5 Allergy status to narcotic agent; Z79.899 Other long term (current) drug therapy; Z92.21 Personal history of antineoplastic chemotherapy
CPT/HCPCS: 36430

== ENCOUNTER 2017-12-31 07:25 | Outpatient (CLI) | payer OTHER, MEDICAID ==
[2017-12-31] MEDS: diphenhydrAMINE 25 MG CAP PO (07:55)
[2017-12-31] MEDS: ACETAMINOPHEN TAB 650MG DOSE (2X325MG) PO (07:55)
[2017-12-31 08:06] LABS: IMMEDIATE SPIN CROSSMATCH 1
[2017-12-31 10:15] LABS: IMMEDIATE SPIN CROSSMATCH 1 1
[2017-12-31] MEDS: SODIUM CHLORIDE 0.9% INJ 10 ML SYR IV (12:30)
[2017-12-31] MEDS ORDERED: SODIUM CHLORIDE 0.9% INJ 10 ML SYR IV (18:00)
== END 2017-12-31 12:30 | disposition home or self-care (01) ==
LOC: M INFU 07:25
DX: C92.00 Acute myeloblastic leukemia, not having achieved remission (principal); Z95.2 Presence of prosthetic heart valve; Z88.8 Allergy status to other drugs, medicaments and biological substances; Z88.5 Allergy status to narcotic agent; Z79.899 Other long term (current) drug therapy; Z92.21 Personal history of antineoplastic chemotherapy
CPT/HCPCS: 36430

== ENCOUNTER 2018-01-03 07:37 | Outpatient (CLI) | payer OTHER, MEDICAID ==
[2018-01-03] MEDS: ACETAMINOPHEN TAB 650MG DOSE (2X325MG) PO (07:01)
[2018-01-03] MEDS: diphenhydrAMINE 25 MG CAP PO (07:53)
[2018-01-03 08:00] LABS: IMMEDIATE SPIN CROSSMATCH 1
[2018-01-03 09:29] LABS: IMMEDIATE SPIN CROSSMATCH 1 1
[2018-01-03] MEDS: SODIUM CHLORIDE 0.9% INJ 10 ML SYR IV (10:49)
[2018-01-03] MEDS ORDERED: SODIUM CHLORIDE 0.9% INJ 10 ML SYR IV (18:00)
== END 2018-01-03 12:00 | disposition home or self-care (01) ==
LOC: M INFU 07:37
DX: C92.00 Acute myeloblastic leukemia, not having achieved remission (principal); Z79.899 Other long term (current) drug therapy; Z88.8 Allergy status to other drugs, medicaments and biological substances; Z95.2 Presence of prosthetic heart valve; Z87.442 Personal history of urinary calculi
CPT/HCPCS: 36430

== ENCOUNTER 2018-01-07 07:24 | Outpatient (CLI) | payer OTHER, MEDICAID ==
[2018-01-07] MEDS: ACETAMINOPHEN TAB 650MG DOSE (2X325MG) PO (07:00)
[2018-01-07 07:36] LABS: IMMEDIATE SPIN CROSSMATCH 1
[2018-01-07] MEDS: diphenhydrAMINE 25 MG CAP PO (07:36)
[2018-01-07 09:24] LABS: IMMEDIATE SPIN CROSSMATCH 1 1
== END 2018-01-07 11:45 | disposition home or self-care (01) ==
LOC: M INFU 07:24
DX: C92.00 Acute myeloblastic leukemia, not having achieved remission (principal); Z95.2 Presence of prosthetic heart valve; Z88.8 Allergy status to other drugs, medicaments and biological substances; Z88.5 Allergy status to narcotic agent; Z79.899 Other long term (current) drug therapy; Z92.21 Personal history of antineoplastic chemotherapy
CPT/HCPCS: 36430

== ENCOUNTER 2018-01-10 06:58 | Outpatient (CLI) | payer OTHER, MEDICAID ==
[2018-01-10] MEDS: ACETAMINOPHEN TAB 650MG DOSE (2X325MG) PO (07:22)
[2018-01-10] MEDS: diphenhydrAMINE 25 MG CAP PO (07:22)
[2018-01-10 07:29] LABS: IMMEDIATE SPIN CROSSMATCH 1
[2018-01-10] MEDS: SODIUM CHLORIDE 0.9% INJ 10 ML SYR IV (09:24)
[2018-01-10] MEDS ORDERED: SODIUM CHLORIDE 0.9% INJ 10 ML SYR IV (18:00)
== END 2018-01-10 09:30 | disposition home or self-care (01) ==
LOC: M INFU 06:58
DX: C92.00 Acute myeloblastic leukemia, not having achieved remission (principal); Z95.2 Presence of prosthetic heart valve; Z87.442 Personal history of urinary calculi; D64.9 Anemia, unspecified; Z88.8 Allergy status to other drugs, medicaments and biological substances; Z88.5 Allergy status to narcotic agent; Z92.21 Personal history of antineoplastic chemotherapy; Z79.899 Other long term (current) drug therapy
CPT/HCPCS: 36430

== ENCOUNTER 2018-01-14 07:36 | Outpatient (CLI) | payer OTHER, MEDICAID ==
[2018-01-14] MEDS: diphenhydrAMINE 25 MG CAP PO (07:53)
[2018-01-14] MEDS: ACETAMINOPHEN TAB 650MG DOSE (2X325MG) PO (07:53)
[2018-01-14 07:55] LABS: IMMEDIATE SPIN CROSSMATCH 1 1
[2018-01-14 10:23] LABS: IMMEDIATE SPIN CROSSMATCH 1 1
[2018-01-14] MEDS: SODIUM CHLORIDE 0.9% INJ 10 ML SYR IV (12:27)
[2018-01-14] MEDS ORDERED: SODIUM CHLORIDE 0.9% INJ 10 ML SYR IV (18:00)
== END 2018-01-14 12:35 | disposition home or self-care (01) ==
LOC: M INFU 07:36
DX: C92.00 Acute myeloblastic leukemia, not having achieved remission (principal); Z95.2 Presence of prosthetic heart valve; Z87.442 Personal history of urinary calculi; D64.9 Anemia, unspecified; Z79.899 Other long term (current) drug therapy; Z88.8 Allergy status to other drugs, medicaments and biological substances; Z88.5 Allergy status to narcotic agent
CPT/HCPCS: 36430

== ENCOUNTER 2018-01-17 07:35 | Outpatient (CLI) | payer OTHER, MEDICAID ==
[2018-01-17] MEDS: diphenhydrAMINE 50 MG CAP PO (07:46)
[2018-01-17] MEDS: ACETAMINOPHEN TAB 650MG DOSE (2X325MG) PO (07:47)
[2018-01-17 07:59] LABS: IMMEDIATE SPIN CROSSMATCH 1
[2018-01-17] MEDS: SODIUM CHLORIDE 0.9% INJ 10 ML SYR IV (09:45)
[2018-01-17] MEDS ORDERED: SODIUM CHLORIDE 0.9% INJ 10 ML SYR IV (18:00)
== END 2018-01-17 10:15 | disposition home or self-care (01) ==
LOC: M INFU 07:35
DX: C92.00 Acute myeloblastic leukemia, not having achieved remission (principal); Z88.8 Allergy status to other drugs, medicaments and biological substances; Z88.5 Allergy status to narcotic agent
CPT/HCPCS: 36430

== ENCOUNTER 2018-01-22 07:19 | Outpatient (CLI) | payer OTHER, MEDICAID ==
[2018-01-22] MEDS: ACETAMINOPHEN TAB 650MG DOSE (2X325MG) PO (07:37)
[2018-01-22] MEDS: diphenhydrAMINE 25 MG CAP PO (07:37)
[2018-01-22 07:48] LABS: IMMEDIATE SPIN CROSSMATCH 1
[2018-01-22 09:54] LABS: IMMEDIATE SPIN CROSSMATCH 1 1
[2018-01-22] MEDS: SODIUM CHLORIDE 0.9% INJ 10 ML SYR IV (12:02)
== END 2018-01-22 12:15 | disposition home or self-care (01) ==
LOC: M INFU 07:19
DX: C92.00 Acute myeloblastic leukemia, not having achieved remission (principal); Z79.899 Other long term (current) drug therapy; Z88.8 Allergy status to other drugs, medicaments and biological substances
CPT/HCPCS: 36430

== ENCOUNTER 2018-01-28 07:26 | Outpatient (CLI) | payer OTHER, MEDICAID ==
[2018-01-28] MEDS: diphenhydrAMINE 25 MG CAP PO (08:09)
[2018-01-28] MEDS: ACETAMINOPHEN TAB 650MG DOSE (2X325MG) PO (08:09)
[2018-01-28 08:37] LABS: IMMEDIATE SPIN CROSSMATCH 1
[2018-01-28 10:37] LABS: IMMEDIATE SPIN CROSSMATCH 1 1
[2018-01-28] MEDS: SODIUM CHLORIDE 0.9% INJ 10 ML SYR IV (12:47)
[2018-01-28] MEDS ORDERED: SODIUM CHLORIDE 0.9% INJ 10 ML SYR IV (18:00)
== END 2018-01-28 12:50 | disposition home or self-care (01) ==
LOC: M INFU 07:26
DX: C92.90 Myeloid leukemia, unspecified, not having achieved remission (principal); Z79.899 Other long term (current) drug therapy; Z88.8 Allergy status to other drugs, medicaments and biological substances; Z95.4 Presence of other heart-valve replacement; Z87.442 Personal history of urinary calculi
CPT/HCPCS: 36430

== ENCOUNTER 2018-01-31 10:41 | Outpatient (CLI) | payer OTHER, MEDICAID ==
[2018-01-31] MEDS ORDERED: SODIUM CHLORIDE 0.9% INJ 10 ML SYR IV (11:00)
[2018-01-31 11:12] LABS: IMMEDIATE SPIN CROSSMATCH 1
[2018-01-31] MEDS: diphenhydrAMINE 25 MG CAP PO (11:26)
[2018-01-31] MEDS: ACETAMINOPHEN TAB 650MG DOSE (2X325MG) PO (11:27)
[2018-01-31] MEDS: SODIUM CHLORIDE 0.9% INJ 10 ML SYR IV (11:28)
== END 2018-01-31 13:00 | disposition home or self-care (01) ==
LOC: M INFU 10:41
DX: C92.00 Acute myeloblastic leukemia, not having achieved remission (principal); Z79.899 Other long term (current) drug therapy; Z88.8 Allergy status to other drugs, medicaments and biological substances; Z95.2 Presence of prosthetic heart valve; Z87.442 Personal history of urinary calculi
CPT/HCPCS: 36430

== ENCOUNTER 2018-02-04 09:19 | Outpatient (CLI) | payer OTHER, MEDICAID ==
[2018-02-04] MEDS: diphenhydrAMINE 25 MG CAP PO (09:26)
[2018-02-04] MEDS: ACETAMINOPHEN TAB 650MG DOSE (2X325MG) PO (09:27)
[2018-02-04 09:34] LABS: IMMEDIATE SPIN CROSSMATCH 1
[2018-02-04] MEDS: SODIUM CHLORIDE 0.9% INJ 10 ML SYR IV (10:58)
[2018-02-04] MEDS ORDERED: SODIUM CHLORIDE 0.9% INJ 10 ML SYR IV (18:00)
== END 2018-02-04 11:10 | disposition home or self-care (01) ==
LOC: M INFU 09:19
DX: C92.00 Acute myeloblastic leukemia, not having achieved remission (principal); Z79.899 Other long term (current) drug therapy; Z88.8 Allergy status to other drugs, medicaments and biological substances; Z95.2 Presence of prosthetic heart valve; Z87.442 Personal history of urinary calculi
CPT/HCPCS: 36430

== ENCOUNTER 2018-02-07 09:31 | Outpatient (CLI) | payer OTHER, MEDICAID ==
[2018-02-07] MEDS: ACETAMINOPHEN TAB 650MG DOSE (2X325MG) PO (09:37)
[2018-02-07] MEDS: diphenhydrAMINE 50 MG CAP PO (09:37)
[2018-02-07 09:50] LABS: IMMEDIATE SPIN CROSSMATCH 1
[2018-02-07 11:18] LABS: IMMEDIATE SPIN CROSSMATCH 1 1
== END 2018-02-07 13:35 | disposition home or self-care (01) ==
LOC: M INFU 09:31
DX: C92.00 Acute myeloblastic leukemia, not having achieved remission (principal); Z88.8 Allergy status to other drugs, medicaments and biological substances; Z88.5 Allergy status to narcotic agent
CPT/HCPCS: 36430

== ENCOUNTER 2018-02-11 07:59 | Outpatient (CLI) | payer OTHER, MEDICAID ==
[2018-02-11] MEDS: ACETAMINOPHEN TAB 650MG DOSE (2X325MG) PO (08:05)
[2018-02-11] MEDS: diphenhydrAMINE 50 MG CAP PO (08:05)
[2018-02-11 08:15] LABS: IMMEDIATE SPIN CROSSMATCH 1
[2018-02-11] MEDS: SODIUM CHLORIDE 0.9% INJ 10 ML SYR IV (09:48)
[2018-02-11] MEDS ORDERED: SODIUM CHLORIDE 0.9% INJ 10 ML SYR IV (18:00)
== END 2018-02-11 13:00 | disposition home or self-care (01) ==
LOC: M INFU 07:59
DX: C92.00 Acute myeloblastic leukemia, not having achieved remission (principal); Z88.8 Allergy status to other drugs, medicaments and biological substances; Z88.5 Allergy status to narcotic agent
CPT/HCPCS: 36430

== ENCOUNTER 2018-02-14 07:46 | Outpatient (CLI) | payer OTHER, MEDICAID ==
[2018-02-14] MEDS: ACETAMINOPHEN TAB 650MG DOSE (2X325MG) PO (08:19)
[2018-02-14] MEDS: diphenhydrAMINE 50 MG CAP PO (08:19)
[2018-02-14 08:59] LABS: IMMEDIATE SPIN CROSSMATCH 1
[2018-02-14] MEDS: SODIUM CHLORIDE 0.9% INJ 10 ML SYR IV (10:27)
[2018-02-14] MEDS ORDERED: SODIUM CHLORIDE 0.9% INJ 10 ML SYR IV (18:00)
== END 2018-02-14 10:40 | disposition home or self-care (01) ==
LOC: M INFU 07:46
DX: C92.00 Acute myeloblastic leukemia, not having achieved remission (principal); Z88.8 Allergy status to other drugs, medicaments and biological substances; Z88.5 Allergy status to narcotic agent
CPT/HCPCS: 36430

== ENCOUNTER 2018-02-18 07:42 | Outpatient (CLI) | payer OTHER, MEDICAID ==
[2018-02-18 07:59] LABS: IMMEDIATE SPIN CROSSMATCH 1
[2018-02-18] MEDS: ACETAMINOPHEN TAB 650MG DOSE (2X325MG) PO (08:23)
[2018-02-18] MEDS: diphenhydrAMINE 25 MG CAP PO (08:23)
[2018-02-18 09:32] LABS: IMMEDIATE SPIN CROSSMATCH 1 1
== END 2018-02-18 11:35 | disposition home or self-care (01) ==
LOC: M INFU 07:42
DX: C92.00 Acute myeloblastic leukemia, not having achieved remission (principal); Z79.899 Other long term (current) drug therapy; Z88.8 Allergy status to other drugs, medicaments and biological substances
CPT/HCPCS: 36430

== ENCOUNTER 2018-02-21 07:51 | Outpatient (CLI) | payer OTHER, MEDICAID ==
[2018-02-21 08:13] LABS: IMMEDIATE SPIN CROSSMATCH 1
[2018-02-21] MEDS: ACETAMINOPHEN TAB 650MG DOSE (2X325MG) PO (08:14)
[2018-02-21] MEDS: diphenhydrAMINE 25 MG CAP PO (08:14)
[2018-02-21] MEDS: SODIUM CHLORIDE 0.9% INJ 10 ML SYR IV (09:41)
[2018-02-21] MEDS ORDERED: SODIUM CHLORIDE 0.9% INJ 10 ML SYR IV (18:00)
== END 2018-02-21 09:50 | disposition home or self-care (01) ==
LOC: M INFU 07:51
DX: C92.00 Acute myeloblastic leukemia, not having achieved remission (principal); Z88.8 Allergy status to other drugs, medicaments and biological substances; Z88.5 Allergy status to narcotic agent
CPT/HCPCS: 36430

== ENCOUNTER 2018-02-25 07:38 | Outpatient (CLI) | payer OTHER, MEDICAID ==
[2018-02-25] MEDS ORDERED: SODIUM CHLORIDE 0.9% INJ 10 ML SYR IV ×2 (08:00→18:00)
[2018-02-25] MEDS: diphenhydrAMINE 50 MG CAP PO (08:09)
[2018-02-25] MEDS: ACETAMINOPHEN TAB 650MG DOSE (2X325MG) PO (08:09)
[2018-02-25 08:24] LABS: IMMEDIATE SPIN CROSSMATCH 1 1
[2018-02-25 11:02] LABS: IMMEDIATE SPIN CROSSMATCH 1 1
== END 2018-02-25 13:10 | disposition home or self-care (01) ==
LOC: M INFU 07:38
DX: C92.00 Acute myeloblastic leukemia, not having achieved remission (principal); Z88.8 Allergy status to other drugs, medicaments and biological substances; Z88.5 Allergy status to narcotic agent
CPT/HCPCS: 36430

== ENCOUNTER 2018-03-04 08:41 | Outpatient (CLI) | payer OTHER, MEDICAID ==
[2018-03-04] MEDS: ACETAMINOPHEN TAB 650MG DOSE (2X325MG) PO (10:18)
[2018-03-04] MEDS: diphenhydrAMINE 25 MG CAP PO (10:18)
[2018-03-04 10:19] LABS: IMMEDIATE SPIN CROSSMATCH 1 1
[2018-03-04 12:28] LABS: IMMEDIATE SPIN CROSSMATCH 1
[2018-03-04] MEDS: SODIUM CHLORIDE 0.9% INJ 10 ML SYR IV (14:26)
[2018-03-04] MEDS ORDERED: SODIUM CHLORIDE 0.9% INJ 10 ML SYR IV (18:00)
== END 2018-03-04 15:00 | disposition home or self-care (01) ==
LOC: M INFU 08:41
DX: C92.00 Acute myeloblastic leukemia, not having achieved remission (principal); Z88.8 Allergy status to other drugs, medicaments and biological substances; Z88.5 Allergy status to narcotic agent
CPT/HCPCS: 36430

== ENCOUNTER 2018-03-07 06:51 | Outpatient (CLI) | payer OTHER, MEDICAID ==
[2018-03-07] MEDS ORDERED: SODIUM CHLORIDE 0.9% INJ 10 ML SYR IV (07:00)
[2018-03-07] MEDS: ACETAMINOPHEN TAB 650MG DOSE (2X325MG) PO (07:31)
[2018-03-07] MEDS: diphenhydrAMINE 25 MG CAP PO (07:31)
[2018-03-07 07:36] LABS: IMMEDIATE SPIN CROSSMATCH 1
[2018-03-07] MEDS: SODIUM CHLORIDE 0.9% INJ 10 ML SYR IV (09:03)
== END 2018-03-07 09:10 | disposition home or self-care (01) ==
LOC: M INFU 06:51
DX: C92.00 Acute myeloblastic leukemia, not having achieved remission (principal); Z88.8 Allergy status to other drugs, medicaments and biological substances; Z88.5 Allergy status to narcotic agent
CPT/HCPCS: 36430

== ENCOUNTER 2018-03-11 07:41 | Outpatient (CLI) | payer OTHER, MEDICAID ==
[2018-03-11] MEDS: ACETAMINOPHEN TAB 650MG DOSE (2X325MG) PO (08:03)
[2018-03-11] MEDS: diphenhydrAMINE 25 MG CAP PO (08:03)
[2018-03-11 08:09] LABS: IMMEDIATE SPIN CROSSMATCH 1 1
[2018-03-11 10:07] LABS: IMMEDIATE SPIN CROSSMATCH 1 1
[2018-03-11] MEDS: SODIUM CHLORIDE 0.9% INJ 10 ML SYR IV (12:21)
[2018-03-11] MEDS ORDERED: SODIUM CHLORIDE 0.9% INJ 10 ML SYR IV (18:00)
== END 2018-03-11 12:30 | disposition home or self-care (01) ==
LOC: M INFU 07:41
DX: C92.00 Acute myeloblastic leukemia, not having achieved remission (principal); Z79.899 Other long term (current) drug therapy; Z88.5 Allergy status to narcotic agent; Z88.8 Allergy status to other drugs, medicaments and biological substances; Z92.21 Personal history of antineoplastic chemotherapy; Z95.2 Presence of prosthetic heart valve
CPT/HCPCS: 36430

== ENCOUNTER 2018-03-18 07:38 | Outpatient (CLI) | payer OTHER, MEDICAID ==
[2018-03-18] MEDS ORDERED: SODIUM CHLORIDE 0.9% INJ 10 ML SYR IV ×2 (07:45→18:00)
[2018-03-18] MEDS: diphenhydrAMINE 25 MG CAP PO (07:51)
[2018-03-18] MEDS: ACETAMINOPHEN TAB 650MG DOSE (2X325MG) PO (07:51)
[2018-03-18 08:01] LABS: IMMEDIATE SPIN CROSSMATCH 1
== END 2018-03-18 10:10 | disposition home or self-care (01) ==
LOC: M INFU 07:38
DX: C92.00 Acute myeloblastic leukemia, not having achieved remission (principal); Z79.899 Other long term (current) drug therapy; Z88.5 Allergy status to narcotic agent; Z88.8 Allergy status to other drugs, medicaments and biological substances; Z92.21 Personal history of antineoplastic chemotherapy; Z95.2 Presence of prosthetic heart valve
CPT/HCPCS: 36430

== ENCOUNTER 2018-03-21 08:01 | Outpatient (CLI) | payer OTHER, MEDICAID ==
[2018-03-21] MEDS ORDERED: SODIUM CHLORIDE 0.9% INJ 10 ML SYR IV ×2 (08:15→18:00)
[2018-03-21] MEDS: ACETAMINOPHEN TAB 650MG DOSE (2X325MG) PO (08:26)
[2018-03-21] MEDS: diphenhydrAMINE 50 MG CAP PO (08:26)
[2018-03-21 08:48] LABS: IMMEDIATE SPIN CROSSMATCH 1
[2018-03-21 12:47] LABS: IMMEDIATE SPIN CROSSMATCH 1 2
== END 2018-03-21 14:45 | disposition home or self-care (01) ==
LOC: M INFU 08:01
DX: C92.90 Myeloid leukemia, unspecified, not having achieved remission (principal); Z88.8 Allergy status to other drugs, medicaments and biological substances
CPT/HCPCS: 36430

== ENCOUNTER 2018-03-25 07:44 | Outpatient (CLI) | payer OTHER, MEDICAID ==
[2018-03-25] MEDS: ACETAMINOPHEN TAB 650MG DOSE (2X325MG) PO (07:59)
[2018-03-25] MEDS: diphenhydrAMINE 25 MG CAP PO (07:59)
[2018-03-25 08:10] LABS: IMMEDIATE SPIN CROSSMATCH 1
[2018-03-25] MEDS: SODIUM CHLORIDE 0.9% INJ 10 ML SYR IV (09:47)
[2018-03-25] MEDS ORDERED: SODIUM CHLORIDE 0.9% INJ 10 ML SYR IV (18:00)
== END 2018-03-25 09:55 | disposition home or self-care (01) ==
LOC: M INFU 07:44
DX: C92.90 Myeloid leukemia, unspecified, not having achieved remission (principal); Z88.8 Allergy status to other drugs, medicaments and biological substances; Z88.5 Allergy status to narcotic agent
CPT/HCPCS: 36430

== ENCOUNTER 2018-03-28 07:36 | Outpatient (CLI) | payer OTHER, MEDICAID ==
[2018-03-28] MEDS: ACETAMINOPHEN TAB 650MG DOSE (2X325MG) PO (07:50)
[2018-03-28] MEDS: diphenhydrAMINE 25 MG CAP PO (07:50)
[2018-03-28 07:58] LABS: IMMEDIATE SPIN CROSSMATCH 1
[2018-03-28] MEDS: SODIUM CHLORIDE 0.9% INJ 10 ML SYR IV (09:35)
[2018-03-28] MEDS ORDERED: SODIUM CHLORIDE 0.9% INJ 10 ML SYR IV (18:00)
== END 2018-03-28 09:45 | disposition home or self-care (01) ==
LOC: M INFU 07:36
DX: C92.00 Acute myeloblastic leukemia, not having achieved remission (principal); Z88.8 Allergy status to other drugs, medicaments and biological substances
CPT/HCPCS: 36430

== ENCOUNTER 2018-04-01 07:44 | Outpatient (CLI) | payer OTHER, MEDICAID ==
[2018-04-01] MEDS: ACETAMINOPHEN TAB 650MG DOSE (2X325MG) PO (07:59)
[2018-04-01] MEDS: diphenhydrAMINE 25 MG CAP PO (07:59)
[2018-04-01 08:06] LABS: IMMEDIATE SPIN CROSSMATCH 1 1
[2018-04-01 09:33] LABS: IMMEDIATE SPIN CROSSMATCH 1 1
[2018-04-01] MEDS ORDERED: SODIUM CHLORIDE 0.9% INJ 10 ML SYR IV (18:00)
== END 2018-04-01 11:45 | disposition home or self-care (01) ==
LOC: M INFU 07:44
DX: C92.00 Acute myeloblastic leukemia, not having achieved remission (principal); Z79.899 Other long term (current) drug therapy; Z88.8 Allergy status to other drugs, medicaments and biological substances; Z88.5 Allergy status to narcotic agent; Z92.21 Personal history of antineoplastic chemotherapy
CPT/HCPCS: 36430

== ENCOUNTER 2018-04-04 10:04 | Outpatient (CLI) | payer OTHER, MEDICAID ==
[2018-04-04] MEDS: ACETAMINOPHEN TAB 650MG DOSE (2X325MG) PO (10:18)
[2018-04-04] MEDS: diphenhydrAMINE 50 MG CAP PO (10:18)
[2018-04-04 10:25] LABS: IMMEDIATE SPIN CROSSMATCH 1
[2018-04-04] MEDS: SODIUM CHLORIDE 0.9% INJ 10 ML SYR IV (12:32)
[2018-04-04] MEDS ORDERED: SODIUM CHLORIDE 0.9% INJ 10 ML SYR IV (18:00)
== END 2018-04-04 12:50 | disposition home or self-care (01) ==
LOC: M INFU 10:04
DX: C92.00 Acute myeloblastic leukemia, not having achieved remission (principal); Z79.899 Other long term (current) drug therapy; Z88.5 Allergy status to narcotic agent; Z88.8 Allergy status to other drugs, medicaments and biological substances
CPT/HCPCS: 36430

== ENCOUNTER 2018-04-08 08:04 | Outpatient (CLI) | payer OTHER, MEDICAID ==
[2018-04-08] MEDS: diphenhydrAMINE 50 MG CAP PO (08:15)
[2018-04-08] MEDS: ACETAMINOPHEN TAB 650MG DOSE (2X325MG) PO (08:16)
[2018-04-08 08:24] LABS: IMMEDIATE SPIN CROSSMATCH 1
[2018-04-08] MEDS: SODIUM CHLORIDE 0.9% INJ 10 ML SYR IV (09:22)
[2018-04-08] MEDS ORDERED: SODIUM CHLORIDE 0.9% INJ 10 ML SYR IV (18:00)
== END 2018-04-08 10:15 | disposition home or self-care (01) ==
LOC: M INFU 08:04
DX: C92.00 Acute myeloblastic leukemia, not having achieved remission (principal); Z88.8 Allergy status to other drugs, medicaments and biological substances; Z88.5 Allergy status to narcotic agent
CPT/HCPCS: 36430

== ENCOUNTER 2018-04-15 07:27 | Outpatient (CLI) | payer OTHER, MEDICAID ==
[2018-04-15] MEDS ORDERED: SODIUM CHLORIDE 0.9% INJ 10 ML SYR IV ×2 (07:45→18:00)
[2018-04-15 07:51] LABS: IMMEDIATE SPIN CROSSMATCH 1
[2018-04-15] MEDS: diphenhydrAMINE 50 MG CAP PO (07:52)
[2018-04-15] MEDS: ACETAMINOPHEN TAB 650MG DOSE (2X325MG) PO (07:52)
[2018-04-15 09:09] LABS: IMMEDIATE SPIN CROSSMATCH 1 1
== END 2018-04-15 11:30 | disposition home or self-care (01) ==
LOC: M INFU 07:27
DX: C92.00 Acute myeloblastic leukemia, not having achieved remission (principal); Z88.5 Allergy status to narcotic agent; Z88.8 Allergy status to other drugs, medicaments and biological substances
CPT/HCPCS: 36430

== ENCOUNTER 2018-04-18 07:43 | Outpatient (CLI) | payer OTHER, MEDICAID ==
[2018-04-18] MEDS: diphenhydrAMINE 25 MG CAP PO (07:00)
[2018-04-18] MEDS: ACETAMINOPHEN TAB 650MG DOSE (2X325MG) PO (08:13)
[2018-04-18 08:16] LABS: IMMEDIATE SPIN CROSSMATCH 1
[2018-04-18 09:37] LABS: IMMEDIATE SPIN CROSSMATCH 1 1
== END 2018-04-18 12:45 | disposition home or self-care (01) ==
LOC: M INFU 07:43
DX: C92.90 Myeloid leukemia, unspecified, not having achieved remission (principal)
CPT/HCPCS: 36430

== ENCOUNTER 2018-04-22 07:29 | Outpatient (CLI) | payer OTHER, MEDICAID ==
[2018-04-22 07:47] LABS: IMMEDIATE SPIN CROSSMATCH 1
[2018-04-22] MEDS: ACETAMINOPHEN TAB 650MG DOSE (2X325MG) PO (08:10)
[2018-04-22] MEDS: diphenhydrAMINE 25 MG CAP PO (08:10)
[2018-04-22] MEDS: SODIUM CHLORIDE 0.9% INJ 10 ML SYR IV (09:40)
[2018-04-22] MEDS ORDERED: SODIUM CHLORIDE 0.9% INJ 10 ML SYR IV (18:00)
== END 2018-04-22 10:10 | disposition home or self-care (01) ==
LOC: M INFU 07:29
DX: C92.00 Acute myeloblastic leukemia, not having achieved remission (principal); Z88.8 Allergy status to other drugs, medicaments and biological substances; Z88.5 Allergy status to narcotic agent
CPT/HCPCS: 36430

== ENCOUNTER 2018-04-25 08:41 | Outpatient (CLI) | payer OTHER, MEDICAID ==
[2018-04-25] MEDS: ACETAMINOPHEN TAB 650MG DOSE (2X325MG) PO (08:56)
[2018-04-25] MEDS: diphenhydrAMINE 25 MG CAP PO (08:57)
[2018-04-25 09:02] LABS: IMMEDIATE SPIN CROSSMATCH 1
[2018-04-25] MEDS: SODIUM CHLORIDE 0.9% INJ 10 ML SYR IV (10:28)
[2018-04-25] MEDS ORDERED: SODIUM CHLORIDE 0.9% INJ 10 ML SYR IV (18:00)
== END 2018-04-25 10:40 | disposition home or self-care (01) ==
LOC: M INFU 08:41
DX: C92.00 Acute myeloblastic leukemia, not having achieved remission (principal); Z88.8 Allergy status to other drugs, medicaments and biological substances; Z88.5 Allergy status to narcotic agent
CPT/HCPCS: 36430

== ENCOUNTER 2018-04-29 07:27 | Outpatient (CLI) | payer OTHER, MEDICAID ==
[2018-04-29] MEDS ORDERED: SODIUM CHLORIDE 0.9% INJ 10 ML SYR IV ×2 (07:45→18:00)
[2018-04-29] MEDS: ACETAMINOPHEN TAB 650MG DOSE (2X325MG) PO (07:49)
[2018-04-29] MEDS: diphenhydrAMINE 25 MG CAP PO (07:50)
[2018-04-29 07:56] LABS: IMMEDIATE SPIN CROSSMATCH 1
[2018-04-29 09:22] LABS: IMMEDIATE SPIN CROSSMATCH 1 1
== END 2018-04-29 11:40 | disposition home or self-care (01) ==
LOC: M INFU 07:27
DX: C92.00 Acute myeloblastic leukemia, not having achieved remission (principal); Z88.8 Allergy status to other drugs, medicaments and biological substances; Z88.5 Allergy status to narcotic agent
CPT/HCPCS: 36430

== ENCOUNTER 2018-05-02 07:40 | Outpatient (CLI) | payer OTHER, MEDICAID ==
[~2018-05-02] VITALS: Ht 160 cm; Wt 61.3 kg
[~2018-05-02 07:40] MED LIST changes: +ACETAMINOPHEN TAB 650MG DOSE (2X325MG) PO SCH; +CARB20TAXR PO; +POTA10808 PO; -SODIUM CHLORIDE 0.9% INJ 10 ML SYR IV; +[UNRECOGNIZED DRUG - REMARK] PO; +diphenhydrAMINE 25 MG CAP PO SCH
[2018-05-02] MEDS ORDERED: diphenhydrAMINE 50 MG CAP As Ordered ONE (07:54)
[2018-05-02 08:00] VITALS: BP 121/56
[2018-05-02 08:20] VITALS: BP 105/54
[2018-05-02] MEDS ORDERED: SODIUM CHLORIDE 0.9% INJ 10 ML SYR IV SCH (09:00)
[2018-05-02 09:20] VITALS: BP 90/48
[2018-05-02 10:00] VITALS: BP 99/64
[2018-05-02 10:20] VITALS: BP 112/54
== END 2018-05-02 10:20 | disposition home or self-care (01) ==
LOC: M INFU 07:40
PROVIDERS: ATTEND Internal Medicine Medical Oncology
DX: C92.00 Acute myeloblastic leukemia, not having achieved remission (principal); Z88.5 Allergy status to narcotic agent; Z88.8 Allergy status to other drugs, medicaments and biological substances
CPT/HCPCS: 36430; P9036

== ENCOUNTER 2018-05-06 07:24 | Outpatient (CLI) | payer OTHER, MEDICAID ==
[~2018-05-06] VITALS: Ht 160 cm; Wt 61.3 kg
[2018-05-06 07:43] VITALS: BP 105/71
[2018-05-06] MEDS ORDERED: SODIUM CHLORIDE 0.9% INJ 10 ML SYR IV PRN (07:45)
[2018-05-06 12:26] VITALS: BP 111/73
[2018-05-06] MEDS ORDERED: SODIUM CHLORIDE 0.9% INJ 10 ML SYR IV SCH (18:00)
== END 2018-05-06 12:30 | disposition home or self-care (01) ==
LOC: M INFU 07:24
PROVIDERS: ATTEND Internal Medicine Medical Oncology
DX: C92.00 Acute myeloblastic leukemia, not having achieved remission (principal); Z88.8 Allergy status to other drugs, medicaments and biological substances; Z88.5 Allergy status to narcotic agent
CPT/HCPCS: 36430; P9036

== ENCOUNTER 2018-05-09 09:07 | Outpatient (CLI) | payer OTHER, MEDICAID ==
[~2018-05-09] VITALS: Ht 152.4 cm; Wt 61.3 kg
[~2018-05-09 09:07] MED LIST changes: -ACETAMINOPHEN TAB 650MG DOSE (2X325MG) PO SCH; +SODIUM CHLORIDE 0.9% INJ 10 ML SYR IV PRN; -diphenhydrAMINE 25 MG CAP PO SCH; +diphenhydrAMINE 50 MG CAP PO ONE
[2018-05-09] MEDS: ACETAMINOPHEN TAB 650MG DOSE (2X325MG) PO SCH ×2 (09:13→09:14)
[2018-05-09 09:34] VITALS: BP 124/58
[2018-05-09 10:00] VITALS: BP 110/55
[2018-05-09 11:00] VITALS: BP 95/54
[2018-05-09 11:30] VITALS: BP 98/53
[2018-05-09 12:30] VITALS: BP 92/47
[2018-05-09 13:17] VITALS: BP 117/59
[2018-05-09] MEDS ORDERED: SODIUM CHLORIDE 0.9% INJ 10 ML SYR IV SCH (18:00)
== END 2018-05-09 13:15 | disposition home or self-care (01) ==
LOC: M INFU 09:07
PROVIDERS: ATTEND Internal Medicine Medical Oncology
DX: C92.00 Acute myeloblastic leukemia, not having achieved remission (principal); Z88.5 Allergy status to narcotic agent; Z88.8 Allergy status to other drugs, medicaments and biological substances
CPT/HCPCS: 36430; 86850; 86900; 86901; 86920; P9036; P9040

== ENCOUNTER 2018-05-16 09:55 | Outpatient (CLI) | payer OTHER, MEDICAID ==
[2018-05-16] VITALS (7 sets, daily range): BP systolic 100–112; BP diastolic 53–56
[~2018-05-16] VITALS: Ht 160 cm; Wt 61.3 kg
[~2018-05-16 09:55] MED LIST changes: +ACETAMINOPHEN TAB 650MG DOSE (2X325MG) PO ONE
[2018-05-16] MEDS ORDERED: SODIUM CHLORIDE 0.9% INJ 10 ML SYR IV SCH (18:00)
== END 2018-05-16 14:30 | disposition home or self-care (01) ==
LOC: M INFU 09:55
PROVIDERS: ATTEND Internal Medicine Medical Oncology
DX: C92.00 Acute myeloblastic leukemia, not having achieved remission (principal); Z88.5 Allergy status to narcotic agent; Z88.8 Allergy status to other drugs, medicaments and biological substances
CPT/HCPCS: 36430; 86850; 86900; 86901; 86920; P9036; P9040

== ENCOUNTER 2018-05-20 09:09 | Outpatient (CLI) | payer MEDICARE, MEDICAID ==
[~2018-05-20] VITALS: Ht 160 cm; Wt 50.9 kg
[~2018-05-20 09:09] MED LIST changes: -ACETAMINOPHEN TAB 650MG DOSE (2X325MG) PO ONE; +ACETAMINOPHEN TAB 650MG DOSE (2X325MG) PO SCH; -SODIUM CHLORIDE 0.9% INJ 10 ML SYR IV PRN; -diphenhydrAMINE 50 MG CAP PO ONE
[2018-05-20] MEDS ORDERED: diphenhydrAMINE 50 MG CAP PO ONE (09:45)
[2018-05-20] MEDS ORDERED: SODIUM CHLORIDE 0.9% INJ 10 ML SYR IV SCH (18:00)
== END 2018-05-20 16:20 | disposition home or self-care (01) ==
LOC: M OPCLI5PR 09:09 → M MS5PR 09:10 → M OPCLI5PR 16:20
PROVIDERS: ATTEND Internal Medicine Medical Oncology
DX: C92.00 Acute myeloblastic leukemia, not having achieved remission (principal); Z88.5 Allergy status to narcotic agent; Z88.8 Allergy status to other drugs, medicaments and biological substances
CPT/HCPCS: 36415; 36430; 86850; 86900; 86901; 86920; P9036; P9040

== ENCOUNTER 2018-05-23 10:20 | Outpatient (CLI) | payer MEDICARE, MEDICAID ==
[~2018-05-23] VITALS: Ht 158.8 cm; Wt 61.3 kg
[~2018-05-23 10:20] MED LIST changes: +SODIUM CHLORIDE 0.9% INJ 10 ML SYR IV PRN; +diphenhydrAMINE 25 MG CAP PO SCH
[2018-05-23 10:25] VITALS: BP 130/62
[2018-05-23 12:30] VITALS: BP 121/57
[2018-05-23] MEDS ORDERED: SODIUM CHLORIDE 0.9% INJ 10 ML SYR IV SCH (18:00)
== END 2018-05-23 12:35 | disposition home or self-care (01) ==
LOC: M INFU 10:20
PROVIDERS: ATTEND Internal Medicine Medical Oncology
DX: E88.01 Alpha-1-antitrypsin deficiency (principal); Z88.5 Allergy status to narcotic agent; Z88.8 Allergy status to other drugs, medicaments and biological substances

== ENCOUNTER 2018-05-24 19:27 | Inpatient (IN) | payer MEDICARE, MEDICAID ==
[~2018-05-24] VITALS: Ht 162.6 cm; Wt 51.8 kg
[~2018-05-24 19:27] MED LIST changes: -ACETAMINOPHEN TAB 650MG DOSE (2X325MG) PO SCH; -SODIUM CHLORIDE 0.9% INJ 10 ML SYR IV PRN; -diphenhydrAMINE 25 MG CAP PO SCH
[2018-05-24] MEDS ORDERED: ACETAMINOPHEN 325 MG TAB PO ONE (19:45)
[2018-05-24] MEDS ORDERED: NS 500 ML IV ONE (19:45)
[2018-05-24] MEDS ORDERED: PIPERACILLIN/TAZOBACTAM SOD 3.375 GM in D5W MINI-BAG PLUS 50 ML IV ONE (19:45)
[2018-05-24 20:20] LABS: HEMATOCRIT 23.7 % (36.0-47.0); HEMOGLOBIN 7.9 g/dl (12.0-15.5); MEAN CORPUSCULAR HEMOGLOBIN 29.8 pg (27.0-33.0); MEAN CORPUSCULAR HGB CONC 33.3 g/dl (32.0-36.5); MEAN CORPUSCULAR VOLUME 89.4 fl (80.0-96.0); RED BLOOD COUNT 2.65 10^6/uL (4.00-5.40); WHITE BLOOD COUNT 9.4 10^3/uL (4.0-10.0)
[2018-05-24 20:26] LABS: PLATELET COUNT, AUTOMATED 6 10^3/uL (150-450)
[2018-05-24 20:51] LABS: BLOOD UREA NITROGEN 23 MG/DL (7-18); CALCIUM LEVEL 7.9 MG/DL (8.8-10.2); CARBAMAZEPINE (TEGRETOL) LEVEL 7.8 UG/ML (4.0-10.0); CARBON DIOXIDE LEVEL 26 MEQ/L (21-32); CHLORIDE LEVEL 100 MEQ/L (98-107); CREATININE FOR GFR 0.58 MG/DL (0.55-1.30); GLOMERULAR FILTRATION RATE > 60.0 (>39); GLUCOSE, FASTING 136 MG/DL (70-100); POTASSIUM SERUM 4.4 MEQ/L (3.5-5.1); SODIUM LEVEL 134 MEQ/L (136-145)
[2018-05-24 20:52] LABS: INFLUENZA A AMPLIFICATION NEGATIVE (NEGATIVE); INFLUENZA B AMPLIFICATION NEGATIVE (NEGATIVE)
[2018-05-24] MEDS: PANTOPRAZOLE 40MG TAB (PROTONIX) PO SCH (21:00)
[2018-05-24 21:02] LABS: ATYPICAL LYMPH 3 % (0-5); BLAST CELLS 13 % (0-0); LYMPHOCYTES 16 % (16-52); MONOCYTES 24 % (0-8); MYELOCYTES 2 % (0-0); NEUTROPHILS 40 % (35-75); NUCLEATED RED BLOOD CELL 4 % (0-0)
--- NOTE | 2018-05-24 21:05 | REP ---
Chest two views HISTORY: Fever Comparison: None Linear densities are present in the lower lobes consistent with atelectasis or scar. The heart is normal in size. The pulmonary vasculature is normal in appearance. The bony structure is intact. IMPRESSION: Basilar atelectasis or scar. Electronically Signed by Roberto Garcia MD 05/24/2018 08:57 P
[2018-05-24 21:10] LABS: PLATELET ESTIMATE MARKED DECREASE (NORMAL); POLYCHROMASIA 1+
[2018-05-24 22:32] LABS: APPEARANCE, URINE HAZY (CLEAR); BACTERIA, URINE AUTO 1+ (NEGATIVE); BILIRUBIN, URINE AUTO NEGATIVE (NEGATIVE); BLOOD, URINE BLOOD 3+ (NEGATIVE); COLOR, URINE YELLOW (YELLOW); GLUCOSE, URINE (UA) AUTO NEGATIVE (NEGATIVE); KETONE, URINE AUTO NEGATIVE (NEGATIVE); LEUKOCYTE ESTERASE, URINE AUTO TRACE (NEGATIVE); NITRITE, URINE AUTO NEGATIVE (NEGATIVE); PROTEIN, URINE AUTO 2+ mg/dL (NEGATIVE); RBC, URINE AUTO TNTC /HPF (0-3); SPECIFIC GRAVITY URINE AUTO 1.019 (1.002-1.035); SQUAMOUS EPITHELIAL CELL UR AU 3 /HPF (0-6); WBC, URINE AUTO 5 /HPF (0-3)
[2018-05-24] MEDS ORDERED: BISACODYL 10 MG SUPP PR PRN (23:00)
[2018-05-24] MEDS ORDERED: VANCOMYCIN HCL 750 MG, VIAL MATE ADAPTER 1 EACH in D5W 250 ML IV SCH (23:45)
[2018-05-25] VITALS (16 sets, daily range): BP systolic 101–143; BP diastolic 52–65
[2018-05-25] MEDS ORDERED: diphenhydrAMINE INJ 50MG/ML VIAL (J1200) As Ordered ONE (00:25)
--- NOTE | 2018-05-25 00:38 | PHACANCOPD ---
PHARMACY VANCOMYCIN DOSING Pt Demographics Demographics Patient Age:77 , Weight:52.270 , Gender: female Adjusted Body Weight Date: 05/25/18, Adjusted Body Weight: [52] Kg Events Past 24 Hours Events Past 24 Hours: NO: Dialysis, Diuretic Therapy, Change in CrCl, Fever, Elevation in WBC, Pending Diagnostics, Pending Procedures, Other Vancomycin Vancomycin indication: POSSIBLE MRSA INFECTION Vancomycin Target Ranges: 15-20 mcg/ml Vancomycin Load Y/N: No Load Dose Date Time Vancomycin Load Dose: Date: Time: Vancomycin Dose Date: 05/25/18. Current Vancomycin Dose: [1G IV Q12H] Intermittent Dosing?: No Labs Labs Item Value Date Time White Blood Count 9.4 10^3/uL 05/24/182001 Vital Signs Label Value Date Time Patient Temperature 102.4 degrees F 05/24/181927 Temperature Source Oral 05/24/181927 Patient Temperature 101.0 degrees F 05/24/182132 Temperature Source Oral 05/24/182132 Micro Microbiology 05/24/18 Blood Culture, Received Pending 05/24/18 Urine Culture, Received Pending Creatinine Clearance Date:05/25/18. Creatinine Clearance: [76.5ML/MIN]. Assessment and Plan Maintaining Current Dose?: Yes Reason for dose change: No Dose Change Pharmacist Note Pharmacist Note Date: 05/25/18. Pharmacist note: Pt is a 77 year old female being treated with vancomycin for possible MRSA infection goal trough 15-20mcg/ml. The patient has not been treated with vancomycin here in the past. To achieve goal the patient will start vancomycin 1g IV every 12 hours. We will continue to monitor and adjust the dose as needed. SHE [facility] May 25, 2018 00:38
[2018-05-25] MEDS ORDERED: diphenhydrAMINE INJ 50MG/ML VIAL (J1200) IV ONE (00:45)
[2018-05-25] MEDS ORDERED: VANCOMYCIN HCL 1,000 MG, VIAL MATE ADAPTER 1 EACH in D5W 250 ML IV SCH (01:00)
[2018-05-25] MEDS ORDERED: D5W/0.9% SODIUM CHLORIDE 1,000 ML IV SCH (02:45)
[2018-05-25] MEDS: carBAMazepine XR 200 MG TAB PO SCH ×3 (05:13→22:20)
--- NOTE | 2018-05-25 06:05 | ECGEPIP ---
Stationary ECG Study [facility] - ED Test Date: 2018-05-25 Pat Name: TRACY LEWIS Department: Room: [place] [address] Gender: F [place] Steward: steven : 1940 Requested By: FORREST MACDONALD Order Number: [id number] Reading MD: Vincenzo Restrepo Measurements Intervals [place] Rate: 85 P: 63 AR: 184 QRS: -24 QRSD: 98 T: 86 QT: 391 QTc: 465 Interpretive Statements SINUS RHYTHM POSSIBLE LEFT ATRIAL ENLARGEMENT BORDERLINE LEFT AXIS DEVIATION NONSPECIFIC T-WAVE ABNORMALITY MODERATE INTRAVENTRICULAR CONDUCTION DELAY NO PRIORS FOR COMPARISON Electronically Signed On 05-25-2018 6:05:36 EST by Vincenzo Restrepo
[2018-05-25] MEDS: ACETAMINOPHEN TAB 650MG DOSE (2X325MG) PO PRN ×3 (06:08→21:51)
--- NOTE | 2018-05-25 06:34 | HPEPDOC ---
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 Patient said her plt transfusion went ok and usual yesterday, but today she had fever , with no other symptoms , such as pain, headache, nausea, vomiting, diarrhea, cough, OR open wound. PAST MEDICAL HISTORY: AML s/p chemo (last was summer 2016), thrombocytopenia with recurrent plt transfusion (s/p one yesterday), anemia ALLERGIES: Please see below. HOME MEDICATIONS: Please see below. ROS - all 14 point review of system is negative except for whats listed in HPI Physical exam Gen: NAD, healthy appearing , HEENT: normocephalic , atraumatic, no discharge from ears or nose, mild epistaxis, no oropharyngeal erythema or exudate, neck is supple, no lymphadenopathy, trachea midline CVS: RRR, normal S1n S2, grade 3 aortic stenosis murmur, rubs, or gallops, no edema, no jvd Resp: LCTAB, no rhochi, wheezes or crackles Abd : soft nontender, normal bowel sounds, no rebound tenderness or guarding MSK: no swelling, full range of motion, strength 5/5 Neuro: AOAx3, no confusion, no focal deficit Psych: normal mood and affect, good judgment LABORATORY DATA: See below. IMAGING: cxr- Linear densities are present in the lower lobes consistent with atelectasis or scar. MICROBIOLOGY: Please see below. ASSESSMENT: fever - possibly 2/2 bacteremia vs uti GRADE 3 murmur thrombocytopenia anemia aml PLAN: c/w vanc and zosyn f/u UA pending plt transfusion pending prbc transfusion per ED avoid antiplt, nsaids or AC monitor for spontaneous bleed c/w ivf f/u echo heme/onc consult dvt ppx - scd DNR/DNI Vital Signs Vital Signs Date Time Temp Pulse Resp B/P (MAP) Pulse Ox O2 Delivery O2 Flow Rate FiO2 05/24/18 21:33 101.0 05/24/18 20:43 05/24/18 20:32 Room Air 05/24/18 19:28 122 16 95 Laboratory Data Labs 24H Laboratory Tests 2 05/24/18 20:02: Immature Granulocyte % (Auto) , White Blood Count 9.4, Red Blood Count 2.65L, Hemoglobin 7.9L, Hematocrit 23.7L, Mean Corpuscular Volume 89.4, Mean Corpuscular Hemoglobin 29.8, Mean Corpuscular Hemoglobin Concent 33.3, Red Cell Distribution Width 14.8H, Platelet Count 6*L, Monocytes # (Auto) , Nucleated Red Blood Cells % (auto) 4.8H, Neutrophils 40, Band Neutrophils 2, Lymphocytes (Manual) 16, Monocytes (Manual) 24H, Myelocytes 2H, Nucleated Red Blood Cells 4H, Atypical Lymphocytes 3, Blastocytes 13H, Platelet Estimate MARKED DECREASE, Immature Platelet Fraction 8.5, Polychromasia 1+, Basophilic Stippling 1+, Anion Gap 8, Glomerular Filtration Rate > 60.0, Lactic Acid Level 1.2, Blood Urea Nitrogen 23H, Creatinine 0.58, Sodium Level 134L, Potassium Level 4.4, Chloride Level 100, Carbon Dioxide Level 26, Calcium Level 7.9L, Carbamazepine (Tegretol) Level 7.8 05/24/18 20:05: Influenza Type A (RT-PCR) NEGATIVE, Influenza Type B (RT-PCR) NEGATIVE 05/24/18 22:14: Urine Appearance HAZY, Urine Color YELLOW, Urine pH 6.0, Urine Specific [place] 1.019, Urine Protein 2+H, Urine Glucose (UA) NEGATIVE, Urine Ketones NEGATIVE, Urine Urobilinogen 2.0H, Urine Bilirubin NEGATIVE, Urine Leukocyte Esterase TRACEH, Urine Blood 3+H, Urine Nitrite NEGATIVE, Urine WBC (Auto) 5H, Urine RBC (Auto) TNTCH, Urine Hyaline Casts (Auto) 0, Urine Bacteria (Auto) 1+H, Urine Squamous Epithelial Cells 3, Urine Sperm (Auto) CBC/BMP Laboratory Tests 05/24/18 20:02 Red Blood Count 2.65 L, Mean Corpuscular Volume 89.4, Mean Corpuscular Hemoglobin 29.8, Mean Corpuscular Hemoglobin Concent 33.3, Red Cell Distribution Width 14.8 H, Monocytes # (Auto) , Calcium Level 7.9 L Microbiology Microbiology 05/24/18 Blood Culture, Received Pending 05/24/18 Urine Culture, Received Pending Home Medications Scheduled Carbamazepine (TEGretol XR) 200 Mg Martine, 400 MG PO BID Allergies Coded Allergies: Butorphanol (Verified Allergy, Unknown, 12/28/16) shortness of breath Fentanyl (Verified Allergy, Unknown, 12/28/16) shortness of breath Hydrochlorothiazide (Verified Allergy, Unknown, 12/28/16) possible diplopia Hydrocodone (Verified Allergy, Unknown, 12/28/16) shortness of breath Meperidine (Verified Allergy, Unknown, 12/28/16) shortness of breath Morphine (Verified Allergy, Unknown, 12/28/16) shortness of breath RADHA Inhibitors (Verified Adverse Reaction, Unknown, 12/28/16) cough Opium (Verified Adverse Reaction, Unknown, OPIUM ALKALOIDS, 02/08/17) JESSICA PICKETT MD May 25, 2018 02:42
[2018-05-25 08:10] LABS: MAGNESIUM LEVEL 1.8 MG/DL (1.8-2.4)
[2018-05-25] MEDS: VANCOMYCIN HCL 1,000 MG, VIAL MATE ADAPTER 1 EACH in D5W 250 ML IV SCH ×2 (08:14→20:31)
[2018-05-25 12:33] LABS: MEAN CORPUSCULAR HGB CONC 33.3 g/dl (32.0-36.5); MEAN CORPUSCULAR VOLUME 87.1 fl (80.0-96.0); PLATELET COUNT, AUTOMATED 20 10^3/uL (150-450); WHITE BLOOD COUNT 7.9 10^3/uL (4.0-10.0)
--- NOTE | 2018-05-25 12:42 | REP ---
Chest one-view HISTORY: Fever Comparison: 05/24/2018 Linear densities are present in the lower lobes consistent with atelectasis or scar. The heart is normal in size. The pulmonary vasculature is normal in appearance. A PICC line and and central venous line are present. Impression: Bibasilar atelectasis or scar. Electronically Signed by Roberto Garcia MD 05/25/2018 12:34 P
[2018-05-25 14:52] LABS: HEMATOCRIT 28.1 % (36.0-47.0); HEMOGLOBIN 9.4 g/dl (12.0-15.5); MEAN CORPUSCULAR HEMOGLOBIN 29.1 pg (27.0-33.0); MEAN CORPUSCULAR HGB CONC 33.5 g/dl (32.0-36.5); RED BLOOD COUNT 3.23 10^6/uL (4.00-5.40); WHITE BLOOD COUNT 7.8 10^3/uL (4.0-10.0)
[2018-05-25 15:04] LABS: PLATELET COUNT, AUTOMATED 39 10^3/uL (150-450)
[2018-05-25 15:32] LABS: INR 1.25; PROTHROMBIN TIME 15.9 SECONDS (12.1-14.4)
--- NOTE | 2018-05-25 19:27 | IPN ---
DATE: 05/25/2018 The patient was admitted overnight with fever of unknown origin and thrombocytopenia and anemia. The patient currently comfortable, intermittently spiking fevers, no acute distress. Denies any cough, chest pain, pressure or discomfort. Reported hematuria intermittently but no dysuria. VITAL SIGNS: Maximum temperature (t-max) 102.4, current temperature 97.5, pulse 85, respirations 18, blood pressure 113/57, pulse oximetry 95% on room air. LABORATORY: WBC 7.8, hemoglobin and hematocrit 9.4/28.1, platelets 39. Chemistry: Sodium 134, potassium 4.4, chloride 100, bicarbonate 26, BUN 23, creatinine 0.58, C-reactive protein 16.4. GENERAL: The patient is alert, comfortable and in no acute distress. HEENT: Normocephalic, atraumatic. PULMONARY: Bilaterally clear. CARDIAC: Regular. S1, S2. ABDOMEN: Soft, nondistended. EXTREMITIES: No clubbing, cyanosis or edema. ASSESSMENT AND PLAN: This is a 77-year-old female patient with underlying medical history of acute myeloblastic leukemia, last chemotherapy November 2016, currently terminal and not responding to treatment, requiring intermittent transfusions for thrombocytopenia and anemia weekly, was last transfused 2 days ago, presented with 2 days history of intermittent fevers, also with history of peripherally inserted central catheter (PICC) line infection, presented with 2 day history of fevers of unknown origin and generalized weakness. 1. Fever of unknown origin. Differential includes PICC line, given the PICC line has been in for more than 1 year and history of PICC line infection with Staphylococcus aureus versus worsening acute myeloblastic leukemia (AML). Oncologist, Dr. Torres, has been consulted. Family is aware that the patient's AML is currently terminal and has not been responding to treatment and therefore only supportive care option is available. Option of comfort measures have been discussed with the family as well. The family would like to pursue infectious workup first. Subsequently, followup blood cultures. The patient is on Zosyn and vancomycin. PICC line has been discontinued. Triple lumen central line was placed. Followup C-reactive protein. We will consult infectious disease on Saturday when Dr. Barajas is available. In the meantime, we will monitor the patient. IV fluids initially provided. UA has been appreciated as well. Methicillin resistant Staphylococcus aureus (MRSA) screening. 2. Anemia and thrombocytopenia. Transfused 2 units of platelets and 2 units of packed red blood cells. Followup serial complete blood count (CBC) and transfuse as needed. 3. Bleeding from central line site. Surgicel pressure dressing. We will transfuse additional platelets and cryoprecipitates. Case discussed with Dr. Torres. Bleeding seems to be improved. We will follow hemoglobin and hematocrit, additional transfusion if needed. 4. Depression. Continue current medications. 5. Deep vein thrombosis (DVT) prophylaxis. Given severe thrombocytopenia and active bleeding, we will place the patient on thromboembolic compression stockings (TEDS) and sequentials. Avoid any pharmacological agents. DISPOSITION: Pending clinical improvement. Infectious disease consultation and blood cultures.
[2018-05-25] MEDS: PANTOPRAZOLE 40MG TAB (PROTONIX) PO SCH (20:31)
[2018-05-25 22:03] LABS: HEMATOCRIT 23.3 % (36.0-47.0); HEMOGLOBIN 7.9 g/dl (12.0-15.5); MEAN CORPUSCULAR HEMOGLOBIN 29.4 pg (27.0-33.0); MEAN CORPUSCULAR HGB CONC 33.9 g/dl (32.0-36.5); MEAN CORPUSCULAR VOLUME 86.6 fl (80.0-96.0); RED BLOOD COUNT 2.69 10^6/uL (4.00-5.40); WHITE BLOOD COUNT 7.1 10^3/uL (4.0-10.0)
[2018-05-25 22:07] LABS: PLATELET COUNT, AUTOMATED 59 10^3/uL (150-450)
[2018-05-26] VITALS (8 sets, daily range): BP systolic 118–142; BP diastolic 57–83
[2018-05-26 02:04] LABS: HEMATOCRIT 23.8 % (36.0-47.0); HEMOGLOBIN 8.1 g/dl (12.0-15.5); MEAN CORPUSCULAR VOLUME 88.1 fl (80.0-96.0)
[2018-05-26 02:06] LABS: PLATELET COUNT, AUTOMATED 58 10^3/uL (150-450)
[2018-05-26 04:44] LABS: HEMATOCRIT 25.1 % (36.0-47.0); HEMOGLOBIN 8.3 g/dl (12.0-15.5); MEAN CORPUSCULAR HEMOGLOBIN 29.1 pg (27.0-33.0); MEAN CORPUSCULAR HGB CONC 33.1 g/dl (32.0-36.5); MEAN CORPUSCULAR VOLUME 88.1 fl (80.0-96.0); RED BLOOD COUNT 2.85 10^6/uL (4.00-5.40); WHITE BLOOD COUNT 6.1 10^3/uL (4.0-10.0)
[2018-05-26 04:46] LABS: PLATELET COUNT, AUTOMATED 60 10^3/uL (150-450)
[2018-05-26 05:03] LABS: BLOOD UREA NITROGEN 12 MG/DL (7-18); CREATININE FOR GFR 0.38 MG/DL (0.55-1.30); GLOMERULAR FILTRATION RATE > 60.0 (>39); GLUCOSE, FASTING 79 MG/DL (70-100)
[2018-05-26 05:04] LABS: ALBUMIN 2.7 GM/DL (3.2-5.2); ALT/SGPT 42 U/L (12-78); BILIRUBIN,TOTAL 0.6 MG/DL (0.2-1.0); CALCIUM LEVEL 7.9 MG/DL (8.8-10.2); CARBON DIOXIDE LEVEL 28 MEQ/L (21-32); CHLORIDE LEVEL 106 MEQ/L (98-107); MAGNESIUM LEVEL 1.7 MG/DL (1.8-2.4); POTASSIUM SERUM 3.9 MEQ/L (3.5-5.1); SODIUM LEVEL 139 MEQ/L (136-145)
[2018-05-26 05:22] LABS: ATYPICAL LYMPH 11 % (0-5); LYMPHOCYTES 21 % (16-52); METAMYELOCYTES 4 % (0-0); MONOCYTES 19 % (0-8); MYELOCYTES 3 % (0-0); NEUTROPHILS 38 % (35-75); PLATELET ESTIMATE DECREASED (NORMAL)
[2018-05-26 05:23] LABS: ANISOCYTOSIS 1+
[2018-05-26 05:25] LABS: POLYCHROMASIA 1+
[2018-05-26] MEDS ORDERED: MAG SULF 1GM/100ML (MAG RUN) 1 GM in APPROPRIATE DILUENT 1 EA IV ONE (06:00)
--- NOTE | 2018-05-26 06:34 | RO ---
DATE OF PROCEDURE: 05/25/2018 SURGEON: Dr. Pilar Sethi EXHIBIT SPECIALIST: None. PROCEDURE PERFORMED: Left internal jugular (IJ) triple lumen central line. PREPROCEDURE DIAGNOSIS: Fever of unknown origin and possible line infection. POSTPROCEDURE DIAGNOSIS: Fever of unknown origin and possible line infection. ESTIMATED BLOOD LOSS: 20 mL. SEDATION: None. ANESTHETIC: 1% local lidocaine. VENTILATION: 2 liters nasal cannula. DESCRIPTION OF PROCEDURE: Consent was obtained. Risks and benefits explained to the patient and family. The patient was placed in the supine position. Initially ultrasound probe was used. Initially patient's right side of patient's neck was cleaned with ChloraPrep and the patient was covered in the usual manner. Ultrasound probe with sterile probe cover was used. The patient's right IJ was located. Subcutaneous 1% lidocaine was injected with ultrasound guidance and subsequently introducer needle was inserted with ultrasound guidance. Blood return was obtained. A wire was threaded through the introducer needle, but up to the second yong feeling resistant. Subsequently, introducer needle was removed and ultrasound was used. The wire position was confirmed within the right IJ, but because of feeling resistant and cannot advance the wire, the wire was removed, pressure was held and the procedure was abandoned because given patient's severe thrombocytopenia I did not want to dilate a patient's vein given the wire cannot be advanced. Subsequently, the left side of the patient's neck was prepped with ChloraPrep and covered in the usual manner. Ultrasound probe with sterile probe cover was used. The patient's left internal jugular was located. Subsequently, subcutaneous 1% lidocaine was injected with ultrasound guidance and introducer needle was inserted with ultrasound guidance. Blood return was obtained. A guidewire was inserted. Introducer needle was removed. Guidewire position was confirmed with ultrasound. Subsequently, site is dilated and triple lumen central line was inserted over a guide wire via Seldinger technique. The guidewire was removed. All three ports of the triple lumen central line were flushed with normal saline and clamped. Triple lumen central line was secured with stitches. Dressing was placed. X-ray was ordered for confirmation. The procedure was complicated with blood oozing from the central line site given thrombocytopenia. Additional platelets, Surgicel was placed, pressure was held. Additional platelets and cryoprecipitate was ordered. The patient's bleeding has improved. Will monitor patient's CBC and monitor patient's wound closely.
--- NOTE | 2018-05-26 08:16 | CR ---
IN HOSPITAL CONSULTATION DATE OF SERVICE: 05/25/2018 REASON FOR REFERRAL: Refractory acute myeloblastic leukemia (AML) currently on transfusion support on no active treatment since October 2017. HISTORY OF PRESENT ILLNESS: Mrs. Holbrook is a 77-year-old woman who has a history of acute myeloblastic leukemia. Most recently she was seen by Dr. Albarado of [facility] for her acute myeloblastic leukemia and she was deemed not a candidate for additional treatment. Her last treatment was with azacitidine in October 2017. She has not had any treatment since that time. She is currently on transfusion support with blood transfusion and platelets as needed twice a week. Mrs. Holbrook reports that on she developed a fever of 102. She has had no chills. No cough. No difficulty swallowing. No dysuria. No diarrhea. She came to [facility] and was found to have a temperature of 102. She is presently admitted for fever and is currently on antibiotics with vancomycin and piperacillin/tazobactam. Since admission she has continued to have fevers with T-max 102 at 2:00 p.m. today. Hematology/medical oncology was consulted for her history of acute myeloblastic leukemia. On physical exam, she was lying comfortably in bed, not in distress. She had pinkish conjunctivae, anicteric sclerae. No oral mucosal lesions. She has oozing on her PICC line site on the left neck. Lungs were clear. No rales, rhonchi, or wheeze. S1, S2 regular. Abdomen was soft, nontender. No guarding. Extremities-No calf swelling, no calf tenderness, and no pedal edema. IMPRESSION AND PLAN: Mrs. 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 Recommend: CBC monitoring with platelet transfusion for platelet counts less than 15 and packed red cell transfusion for hematocrit less than 21. Agree with plan to consult ID tomorrow. Continue antibiotics. Thank you very much for this referral.
[2018-05-26] MEDS: VANCOMYCIN HCL 1,000 MG, VIAL MATE ADAPTER 1 EACH in D5W 250 ML IV SCH ×2 (09:36→21:15)
[2018-05-26] MEDS: carBAMazepine XR 200 MG TAB PO SCH ×2 (09:37→21:16)
[2018-05-26] MEDS ORDERED: ISOVUE-370 76% 100ML VIAL (Q9967) As Ordered ONE (10:57)
--- NOTE | 2018-05-26 12:18 | REP ---
CT CHEST WITH IV CONTRAST: HISTORY: Fever. Rule out infection. Comparison is made with yesterday's chest x-ray. CT CONTRAST DOSE: 100 mL of intravenous Isovue [address] FINDINGS: The patient is status post median sternotomy and aortic valve replacement. There is good opacification of the pulmonary arterial tree and there is no CT evidence of pulmonary embolism. Thoracic aorta enhances homogeneously without evidence of aneurysm or dissection. The central pulmonary arteries are somewhat prominent consistent with some degree of pulmonary arterial hypertension. There are small bilateral pleural effusions. There are atelectatic changes in the lower lobes posteriorly adjacent to the fluid bilaterally. No focal infiltrate is seen in the lung willis. Bone window settings show a benign hemangioma in two of the mid and lower thoracic vertebrae. There is partial fusion of one of the mid thoracic discs. Osteoporotic wedge compression deformity is seen into lower thoracic vertebrae. This appears to be a chronic finding. No acute bony destructive lesion is seen. There is a thoracic rotoscoliotic curve. IMPRESSION: Status post aortic valve replacement. Small bilateral pleural effusions. Bilateral lower lobe atelectatic changes mild in degree. Otherwise no acute disease. Electronically Signed by Carmine Rabago MD 05/26/2018 07:22 P
--- NOTE | 2018-05-26 12:46 | REP ---
CT ABDOMEN AND PELVIS WITH IV BUT WITHOUT ORAL CONTRAST: HISTORY: Fever. Rule out infection. CT CONTRAST DOSE: 100 mL of intravenous Isovue [address] FINDINGS: Preliminary caster [employer] casting radiograph shows clips in the right abdomen. Bowel gas pattern is normal. There is a levoconvex curve in the lumbar spine. Small bilateral pleural effusions are noted. The liver and spleen are normal in size homogeneous in texture. No adrenal lesion is seen. Pancreas is unremarkable. No abnormality is noted in the gallbladder. There is some diffuse atrophy of the right kidney. There is a 2.2 cm cyst in the upper to mid pole of the right kidney. There is some cortical scarring in the upper pole and lower pole of the right kidney and focally. There are surgical clips medial to the right renal pelvis. Perinephric fat streaking is seen adjacent the right kidney and at the lower pole left kidney raising question of pyelonephritis. There is a parapelvic cyst formation on the left but no marcus hydronephrosis is seen. There is some parenchymal calcification in the left kidney and an intrarenal calculus is observed in the lower pole collecting system of the left kidney measuring 7 mm in diameter. A peripheral cortical cyst is seen in the left kidney but this is small. No retroperitoneal mass or adenopathy is observed. Urinary bladder is unremarkable. The uterus appears to be retroverted and retroflexed and shows some calcification consistent with fibroid change. No ovarian abnormality is observed. Small and large intestinal bowel loops are unremarkable. The appendix is not definitely identified but there is no CT evidence to suggest appendicitis. IMPRESSION: 1. Perinephric fat streaking bilaterally question pyelonephritis. 2. Intrarenal nephrolithiasis lower pole left kidney. 3. Parapelvic cysts left kidney. 4. Atrophy and scarring right kidney. 5. Retroverted retroflexed fibroid uterus. Electronically Signed by Carmine Rabago MD 05/26/2018 07:23 P
[2018-05-26 14:52] LABS: HEMATOCRIT 24.4 % (36.0-47.0); MEAN CORPUSCULAR HGB CONC 32.8 g/dl (32.0-36.5); MEAN CORPUSCULAR VOLUME 88.4 fl (80.0-96.0); RED BLOOD COUNT 2.76 10^6/uL (4.00-5.40)
[2018-05-26 14:54] LABS: PLATELET COUNT, AUTOMATED 44 10^3/uL (150-450)
--- NOTE | 2018-05-26 19:41 | IPNPDOC ---
Text Note Date of Service The patient was seen on 05/26/18. NOTE Ooze blood from central line site. but improved. The patient currently comfortable, intermittently spiking fevers, no acute distress. Denies any cough, chest pain, pressure or discomfort. Reported hematuria intermittently but no dysuria. GENERAL: The patient is alert, comfortable and in no acute distress. HEENT: Normocephalic, atraumatic. PULMONARY: Bilaterally clear. CARDIAC: Regular. S1, S2. ABDOMEN: Soft, nondistended. EXTREMITIES: No clubbing, cyanosis or edema. ASSESSMENT AND PLAN: This is a 77-year-old female patient with underlying medical history of acute myeloblastic leukemia, last chemotherapy November 2016, currently terminal and not responding to treatment, requiring intermittent transfusions for thrombocytopenia and anemia weekly, presented with 2 days history of intermittent fevers, also with history of peripherally inserted central catheter (PICC) line infection, presented with 2 day history of fevers of unknown origin and generalized weakness. 1. Fever of unknown origin. Differential includes PICC line, given the PICC line has been in for more than 1 year and history of PICC line infection with Staphylococcus aureus versus worsening acute myeloblastic leukemia (AML). Oncologist, Dr. Torres, has been consulted. Family is aware that the patient's AML is currently terminal and has not been responding to treatment and therefore only supportive care option is available. Option of comfort measures have been discussed with the family as well. The family would like to pursue infectious workup first. Subsequently, followup blood cultures. PICC line has been discontinued. Triple lumen central line was placed. Followup C-reactive protein. ID consulted. on vanco as per ID. UA has been appreciated as well. Methicillin resistant Staphylococcus aureus (MRSA) screening. CT abd pelvis and ct chest as per ID 2. Anemia and thrombocytopenia. Transfused 4 units of platelets and 2 units of packed red blood cells. and cryoprecipitate. Followup serial complete blood count (CBC) and transfuse as needed. Hem/onc consulted 3. Bleeding from central line site. Surgicel pressure dressing. transfuse as above. Case discussed with Dr. Torres. Bleeding seems to be improved. We will follow hemoglobin and hematocrit, additional transfusion if needed. 4. Depression. Continue current medications. 5. Deep vein thrombosis (DVT) prophylaxis. Given severe thrombocytopenia and active bleeding, we will place the patient on thromboembolic compression stockings (TEDS) and sequentials. Avoid any pharmacological agents. DISPOSITION: Pending clinical improvement. Infectious disease consultation, cultures. VS,Fernando, I+O VS, Fernando, I+O Laboratory Tests 05/25/18 21:46 Red Blood Count 2.69 L, Mean Corpuscular Volume 86.6, Mean Corpuscular Hemoglobin 29.4, Mean Corpuscular Hemoglobin Concent 33.9, Red Cell Distribution Width 15.4 H 05/26/18 01:54 Red Blood Count 2.70 L, Mean Corpuscular Volume 88.1, Mean Corpuscular Hemoglobin 30.0, Mean Corpuscular Hemoglobin Concent 34.0, Red Cell Distribution Width 15.6 H 05/26/18 04:28 Red Blood Count 2.85 L, Mean Corpuscular Volume 88.1, Mean Corpuscular Hemoglobin 29.1, Mean Corpuscular Hemoglobin Concent 33.1, Red Cell Distribution Width 15.5 H, Monocytes # (Auto) , Calcium Level 7.9 L, Aspartate Amino Transf (AST/SGOT) 63 H, Alanine Aminotransferase (ALT/SGPT) 42, Alkaline Phosphatase 83, Total Bilirubin 0.6, Total Protein 5.0 L, Albumin 2.7 L 05/26/18 14:00 Red Blood Count 2.76 L, Mean Corpuscular Volume 88.4, Mean Corpuscular Hemoglobin 29.0, Mean Corpuscular Hemoglobin Concent 32.8, Red Cell Distribution Width 15.3 H Vital Signs Date Time Temp Pulse Resp B/P (MAP) Pulse Ox O2 Delivery O2 Flow Rate FiO2 05/26/18 16:00 99.4 82 18 127/64 (85) 94 Room Air I&O- Last 24 Hours up to 6 AM 05/26/18 06:00 Intake Total 300 ml Output Total 900 ml Balance -600 ml ABHI TAYLOR MD May 26, 2018 19:41
[2018-05-26] MEDS: PANTOPRAZOLE 40MG TAB (PROTONIX) PO SCH (21:16)
[2018-05-27] VITALS: BP 118/56
[2018-05-27 04:00] VITALS: BP 123/58
[2018-05-27 05:34] LABS: HEMOGLOBIN 7.8 g/dl (12.0-15.5); MEAN CORPUSCULAR HEMOGLOBIN 29.7 pg (27.0-33.0); MEAN CORPUSCULAR HGB CONC 33.9 g/dl (32.0-36.5); MEAN CORPUSCULAR VOLUME 87.5 fl (80.0-96.0); RED BLOOD COUNT 2.63 10^6/uL (4.00-5.40); WHITE BLOOD COUNT 3.7 10^3/uL (4.0-10.0)
[2018-05-27 05:52] LABS: ALBUMIN 2.5 GM/DL (3.2-5.2); ALT/SGPT 43 U/L (12-78); BILIRUBIN,TOTAL 0.5 MG/DL (0.2-1.0); BLOOD UREA NITROGEN 11 MG/DL (7-18); C REACTIVE PROTEIN QUANTITATIV 8.75 MG/DL (0.00-0.30); CALCIUM LEVEL 7.8 MG/DL (8.8-10.2); CARBON DIOXIDE LEVEL 28 MEQ/L (21-32); CHLORIDE LEVEL 103 MEQ/L (98-107); CREATININE FOR GFR 0.33 MG/DL (0.55-1.30); GLOMERULAR FILTRATION RATE > 60.0 (>39); GLUCOSE, FASTING 77 MG/DL (70-100); MAGNESIUM LEVEL 1.8 MG/DL (1.8-2.4); POTASSIUM SERUM 3.7 MEQ/L (3.5-5.1); SODIUM LEVEL 137 MEQ/L (136-145); TOTAL PROTEIN 4.7 GM/DL (6.4-8.2)
[2018-05-27 06:13] LABS: PLATELET COUNT, AUTOMATED 32 10^3/uL (150-450)
[2018-05-27 06:18] LABS: ATYPICAL LYMPH 9 % (0-5); LYMPHOCYTES 36 % (16-52); METAMYELOCYTES 5 % (0-0); MONOCYTES 19 % (0-8); MYELOCYTES 4 % (0-0); NEUTROPHILS 27 % (35-75); PLATELET ESTIMATE MARKED DECREASE (NORMAL)
[2018-05-27 06:19] LABS: POLYCHROMASIA 1+
--- NOTE | 2018-05-27 07:08 | CR ---
DATE OF CONSULTATION: 05/26/2018 REASON FOR CONSULTATION: Asked to consult by the hospitalist for evaluation of fever in a patient with acute myeloblastic leukemia. HISTORY OF PRESENT ILLNESS: Mrs. 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 She is currently not on active treatment as she has failed previous treatment with azacitidine in October 2017. She follows up with Dr. Braden and Dr. Albarado at [facility]. The patient had a peripherally inserted central catheter (PICC) line for the past year for which she has been receiving platelet transfusion and blood transfusions at least twice a week. She developed fever of 102 on prior to admission. She had no associated chills. No nausea, vomiting or diarrhea. No cough or shortness of breath. No dysuria, hematuria or flank pain. The patient had two sets of blood cultures 48 hours ago that were drawn and were so far negative. Her PICC line was removed as it was felt it could have been the source of infection. She was treated with vancomycin and Zosyn. The patient today feels great. She has not had any fever today. She denies any complaints. PAST MEDICAL HISTORY: Significant for acute myeloblastic leukemia (AML), has failed chemotherapy, currently transfusion dependent. Last chemotherapy October 2017. Thrombocytopenia requiring platelet transfusion twice a week. Anemia. MEDICATIONS: - Tylenol 650 every 4 hours as needed - Dulcolax as needed - Protonix 40 mg by mouth daily - Tegretol 400 mg by mouth twice a day - vancomycin 1 gram IV every 12 hours - magnesium IV - Zosyn 3.375 grams IV, she received only one dose LABORATORY DATA: White count on admission was 9.4 and today was 5, hemoglobin 8, hematocrit 24.4, platelets 44, 38% neutrophils, 19% monocytes, 4% metamyelocytes, 3% myelocytes, 11% atypical lymphs. Sodium 139, potassium 3.9, chloride 106, bicarb 28, BUN 12, creatinine 0.38, glucose 76, calcium 7.9, magnesium 1.7, AST 63, ALT 42, alkaline phosphatase 83, CRP 12.5 down from 16.4, total protein 5, albumin 2.7. Vancomycin trough 9.1. Tegretol level 7.8. Influenza A and B are negative. Urinalysis had +3 blood, negative nitrite, trace leukocyte esterase, 5 white cells and too numerous to count red cells. Blood cultures two sets were negative. Urine culture is negative. Methicillin-resistant Staphylococcus aureus (MRSA) screen is negative. IMAGING: Status post aortic valve replacement, small bilateral pleural effusion, bilateral lower lobe atelectatic changes, no acute disease. CT of the abdomen with mild perinephric stranding with intrarenal nephrolithiasis of left kidney, parapelvic cyst left kidney, and atrophy of the right kidney. PHYSICAL EXAMINATION: She is a pleasant healthy looking female in no acute distress. Temperature is 99.8, pulse 93, respirations 16, blood pressure 129/58, O2 sat 94% on room air. Heart: Normal S1 and S2. No murmurs, rubs or gallops appreciated. Lungs: Few expiratory wheezes. No rales or rhonchi. Abdomen is soft, nontender. No hepatosplenomegaly. Back: No costovertebral (CVA) or lumbosacral tenderness. Extremities: No clubbing, cyanosis or edema. No calf tenderness. Right arm PICC line is nontender. She has a large ecchymotic area and bleeding around the central line that she has on the left neck with tenderness. No neck stiffness. Oropharynx is clear with no thrush. No lesions. Neurologic Exam: Alert, oriented times three. Motor strength normal. IMPRESSION: This is a 77-year-old female with AML, transfusion dependent, who recently received platelet transfusion and developed fever up to 102 with no other associated symptoms. She does not have upper respiratory symptoms. She feels great. Her temperature was 102.4 max and today she has been afebrile. PICC line was removed as the differential included line infection, but blood cultures have remained negative and CT abdomen and pelvis are benign. PLAN: Discontinue IV vancomycin. Monitor for recurrent fevers. I suspect this is viral in origin, possibly CMV, EBV or other viral infections. At this point, I would not pursue any further workup as the results will not be available prior to her discharge. If her blood cultures remain negative times two sets tomorrow, then she can have a PICC line reinstated and her central line removed.
[2018-05-27] MEDS: carBAMazepine XR 200 MG TAB PO SCH ×2 (07:53→20:21)
[2018-05-27 08:00] VITALS: BP 113/57
[2018-05-27] MEDS ORDERED: LIDOCAINE 1% MDV 20ML VIAL As Ordered ONE (13:56)
--- NOTE | 2018-05-27 14:27 | IPNPDOC ---
Text Note Date of Service The patient was seen on 05/27/18. NOTE Subjective: Pt feels well. Denies CP/SOB/palpitations. No bleeding at this time. Objective: Vitals: (see below) General: No acute distress, laying comfortably in bed. HEENT: Moist mucous membranes. Neck: No JVD or lymphadenopathy. TLC in place. no active bleeding. Cardiac: RRR, No murmurs Pulm: Clear to auscultation b/l. No wheezing, rhonchi Abd: NT/ND + BS Ext: No edema or cyanosis Labs (see below) Assessment/Plan 1. FUO - ? 2/2 PICC line. Fevers resolved. Bld cx negative. ? 2/2 AML. ? viral in origin. Appreciate ID/Heme/oncology. D/c Abx, PICC line insertion today per Dr. Barajas. Remove central line. 2. Chronic pancytopenia secondary to underlying AML. Patient's is receiving supportive care for her AML since 2017, and is no longer on chemotherapy. He continue to transfuse as needed. 3. History of depression continue home meds DVT prophy: SCDs Over all prognosis guarded. I have discussed this with the family and the patient at bedside. The patient would like to continue active medical care with transfusions as needed, and does not want to entertain comfort measures only at this time. Physical therapy consulted. VS,Zeenate, I+O VS, Greysonbone, I+O Laboratory Tests 05/27/18 05:13 Red Blood Count 2.63 L, Mean Corpuscular Volume 87.5, Mean Corpuscular Hemoglobin 29.7, Mean Corpuscular Hemoglobin Concent 33.9, Red Cell Distribution Width 15.1 H, Neutrophils # (Auto) , Calcium Level 7.8 L, Aspartate Amino Transf (AST/SGOT) 60 H, Alanine Aminotransferase (ALT/SGPT) 43, Alkaline Phosphatase 78, Total Bilirubin 0.5, Total Protein 4.7 L, Albumin 2.5 L Vital Signs Date Time Temp Pulse Resp B/P (MAP) Pulse Ox O2 Delivery O2 Flow Rate FiO2 05/27/18 08:00 98.3 80 18 113/57 (75) 97 Room Air I&O- Last 24 Hours up to 6 AM 05/27/18 06:00 Intake Total 1170 ml Output Total 700 ml Balance 470 ml ABED,CELSO MD May 27, 2018 14:27
[2018-05-27 16:00] VITALS: BP 124/77
--- NOTE | 2018-05-27 17:19 | REP ---
Procedure: PICC line insertion with Teresa The procedure was performed under the direct supervision of Dr. Rabago. The risks and benefits of the procedure were explained to the patient and informed consent was obtained. The right basilic vein was localized using ultrasound guidance. The skin was prepped and draped in a sterile fashion. 2% lidocaine was used as a local anesthetic. Using ultrasound guidance the basilic vein was cannulated and a 0.018 guidewire was inserted and advanced to the SVC using fluoroscopic guidance. The needle was removed and a 4.5 Mexican dilator and peel-away sheath was inserted over the guide wire. A 4.5 Mexican single lumen catheter was cut to length of 36 cm. The dilator was removed and the catheter was inserted over the guide wire with the tip ending in the SVC. The peel-away sheath was removed and the catheter was flushed with heparinized saline as per Hospital protocol. The catheter was affixed to the skin and a sterile dressing was applied. The patient tolerated the procedure well and there were no immediate complications. 0.3 minutes of fluoro time was utilized for this procedure. Reviewed by ANDREW Tovar 05/27/2018 03:19 P Electronically Signed by Carmine Rabago MD 05/27/2018 05:10 P
[2018-05-27] MEDS: SODIUM CHLORIDE 0.9% INJ 10 ML SYR IV SCH (17:39)
[2018-05-27 20:00] VITALS: BP 129/60
[2018-05-27] MEDS: PANTOPRAZOLE 40MG TAB (PROTONIX) PO SCH (20:21)
--- NOTE | 2018-05-27 21:30 | IPN ---
DATE: 05/27/2018 Marce is doing well. She has no fever. No nausea, vomiting or diarrhea. No abdominal pain. No cough or shortness of breath. She feels great. Her central line in the left neck has been removed. A PICC line is in place. LABORATORY DATA White count is 3.7, hemoglobin 7.8, hematocrit 23, platelets 32, 27% neutrophils, 36% lymphocytes, 90% monocytes, 5% metamyelocytes. Sodium 137, potassium 3.7, chloride 103, bicarb 28, BUN 11, creatinine 0.3, calcium 7.8, AST 60, ALT 43, alk phos 73, CRP was 16.4, down to 12.5 and currently 8.75. Vancomycin trough yesterday was 9.1. CMV, PCR is pending. Influenza A and B was negative. Blood cultures two sets on 05/25 were no growth after 48 hours. MRSA screen is negative and urine culture was negative. IMPRESSION 1. Fever with no other focus of infection, slightly elevated LFT in a patient with acute myeloid leukemia (AML) who received multiple blood transfusions at least two weekly. The patient could have cytomegalovirus, Angelique Gilman virus or any other viral illness. There has been no evidence of localized bacterial infection or PICC line infection and therefore all antibiotics were discontinued yesterday. 2. AML. Transfusion dependent. The patient will probably receive a blood transfusion and platelet transfusion tomorrow prior to discharge. PLAN Central line was removed. New PICC line was placed. Antibiotics discontinued. Continue monitoring fever. The patient is stable for discharge tomorrow from an infectious disease standpoint. The patient received a total of four doses of IV vancomycin and one dose of IV Zosyn. CT chest, abdomen and pelvis shows no localized infection. There has been evidence of perinephric stranding as well as intrarenal nephrolithiasis and pelvic cyst.
[2018-05-28] VITALS: BP 126/78
[2018-05-28 04:00] VITALS: BP_SYST 107; BP_SYST 132; BP_DIAS 64; BP_DIAS 81
[2018-05-28 05:22] LABS: HEMATOCRIT 24.4 % (36.0-47.0); MEAN CORPUSCULAR HEMOGLOBIN 29.4 pg (27.0-33.0); MEAN CORPUSCULAR HGB CONC 32.8 g/dl (32.0-36.5); MEAN CORPUSCULAR VOLUME 89.7 fl (80.0-96.0); RED BLOOD COUNT 2.72 10^6/uL (4.00-5.40); WHITE BLOOD COUNT 4.1 10^3/uL (4.0-10.0)
[2018-05-28 05:31] LABS: PLATELET COUNT, AUTOMATED 20 10^3/uL (150-450)
[2018-05-28 05:59] LABS: ALBUMIN 2.6 GM/DL (3.2-5.2); ALT/SGPT 45 U/L (12-78); BILIRUBIN,TOTAL 0.6 MG/DL (0.2-1.0); BLOOD UREA NITROGEN 11 MG/DL (7-18); C REACTIVE PROTEIN QUANTITATIV 7.21 MG/DL (0.00-0.30); CARBON DIOXIDE LEVEL 29 MEQ/L (21-32); CHLORIDE LEVEL 103 MEQ/L (98-107); CREATININE FOR GFR 0.39 MG/DL (0.55-1.30); GLOMERULAR FILTRATION RATE > 60.0 (>39); GLUCOSE, FASTING 82 MG/DL (70-100); MAGNESIUM LEVEL 1.6 MG/DL (1.8-2.4); SODIUM LEVEL 137 MEQ/L (136-145); TOTAL PROTEIN 5.3 GM/DL (6.4-8.2)
[2018-05-28] MEDS: SODIUM CHLORIDE 0.9% INJ 10 ML SYR IV SCH ×2 (06:00→18:29)
[2018-05-28 06:03] LABS: ATYPICAL LYMPH 17 % (0-5); BLAST CELLS 1 % (0-0); LYMPHOCYTES 26 % (16-52); METAMYELOCYTES 6 % (0-0); MONOCYTES 21 % (0-8); MYELOCYTES 6 % (0-0); NEUTROPHILS 20 % (35-75); PLATELET ESTIMATE MARKED DECREASE (NORMAL); PROMYELOCYTES 1 % (0-0)
[2018-05-28 06:05] LABS: ANISOCYTOSIS 1+; POLYCHROMASIA 1+
[2018-05-28] MEDS ORDERED: MAG SULF 1GM/100ML (MAG RUN) 1 GM in APPROPRIATE DILUENT 1 EA IV ONE (06:30)
[2018-05-28 08:00] VITALS: BP 122/61
[2018-05-28] MEDS: carBAMazepine XR 200 MG TAB PO SCH ×2 (09:00→20:14)
[2018-05-28 12:00] VITALS: BP 136/66
[2018-05-28] MEDS ORDERED: ACETAMINOPHEN TAB 650MG DOSE (2X325MG) PO ONE (12:15)
[2018-05-28] MEDS ORDERED: diphenhydrAMINE 25 MG CAP PO ONE (12:15)
--- NOTE | 2018-05-28 12:16 | IPNPDOC ---
Text Note Date of Service The patient was seen on 05/28/18. NOTE Subjective: Pt feels well. No bleeding at this time. Objective: Vitals: (see below) General: No acute distress, laying comfortably in bed. HEENT: Moist mucous membranes. Neck: No JVD or lymphadenopathy. TLC in place. no active bleeding. Cardiac: RRR, No murmurs Pulm: Clear to auscultation b/l. No wheezing, rhonchi Abd: NT/ND + BS Ext: No edema or cyanosis Labs (see below) Assessment/Plan 1. FUO - ? 2/2 PICC line. Fevers resolved. Bld cx negative. ? 2/2 AML. ? viral in origin. Appreciate ID/Heme/oncology. D/c Abx, PICC line insertion today per Dr. Barajas. Remove central line. Platelets low this morning, will transfuse 1 unit of platelets. 2. Chronic pancytopenia secondary to underlying AML. Patient's is receiving supportive care for her AML since 2017, and is no longer on chemotherapy. He continue to transfuse as needed. 3. History of depression continue home meds DVT prophy: SCDs Over all prognosis guarded. I have discussed this with the family and the p atient at bedside. The patient would like to continue active medical care with transfusions as needed, and does not want to entertain comfort measures only at this time. Physical therapy consulted. Plan to discharge the next 24 hours if blood counts are stable. VS,Fishbone, I+O VS, Fishbone, I+O Laboratory Tests 05/28/18 05:01 Red Blood Count 2.72 L, Mean Corpuscular Volume 89.7, Mean Corpuscular Hemoglobin 29.4, Mean Corpuscular Hemoglobin Concent 32.8, Red Cell Distribution Width 15.2 H, Neutrophils # (Auto) , Calcium Level 8.0 L, Aspartate Amino Transf (AST/SGOT) 59 H, Alanine Aminotransferase (ALT/SGPT) 45, Alkaline Phosphatase 92, Total Bilirubin 0.6, Total Protein 5.3 L, Albumin 2.6 L Vital Signs Date Time Temp Pulse Resp B/P (MAP) Pulse Ox O2 Delivery O2 Flow Rate FiO2 05/28/18 08:00 98.7 95 18 122/61 (81) 97 Room Air I&O- Last 24 Hours up to 6 AM 05/28/18 06:00 Intake Total 0 ml Output Total 100 ml Balance -100 ml CELSO MCGINNIS MD May 28, 2018 12:16
[2018-05-28] MEDS: SODIUM CHLORIDE 0.9% INJ 10 ML SYR IV PRN (15:30)
[2018-05-28 16:30] VITALS: BP 127/56
[2018-05-28 20:00] VITALS: BP 128/76
[2018-05-28] MEDS: PANTOPRAZOLE 40MG TAB (PROTONIX) PO SCH (20:14)
[2018-05-29] VITALS: BP 134/74
[2018-05-29 04:00] VITALS: BP 128/60
[2018-05-29] MEDS: SODIUM CHLORIDE 0.9% INJ 10 ML SYR IV SCH ×2 (04:59→17:19)
[2018-05-29 05:21] LABS: HEMATOCRIT 23.2 % (36.0-47.0); HEMOGLOBIN 7.5 g/dl (12.0-15.5); MEAN CORPUSCULAR HEMOGLOBIN 29.2 pg (27.0-33.0); MEAN CORPUSCULAR HGB CONC 32.3 g/dl (32.0-36.5); MEAN CORPUSCULAR VOLUME 90.3 fl (80.0-96.0); RED BLOOD COUNT 2.57 10^6/uL (4.00-5.40); WHITE BLOOD COUNT 3.4 10^3/uL (4.0-10.0)
[2018-05-29 05:25] LABS: PLATELET COUNT, AUTOMATED 22 10^3/uL (150-450)
[2018-05-29 06:47] LABS: ATYPICAL LYMPH 11 % (0-5); LYMPHOCYTES 32 % (16-52); METAMYELOCYTES 2 % (0-0); MONOCYTES 24 % (0-8); MYELOCYTES 5 % (0-0); NEUTROPHILS 26 % (35-75); PLATELET ESTIMATE MARKED DECREASE (NORMAL); POLYCHROMASIA 1+
[2018-05-29 06:48] LABS: ANISOCYTOSIS 1+
[2018-05-29 06:57] LABS: ALBUMIN 2.6 GM/DL (3.2-5.2); ALT/SGPT 43 U/L (12-78); BILIRUBIN,TOTAL 0.5 MG/DL (0.2-1.0); BLOOD UREA NITROGEN 13 MG/DL (7-18); C REACTIVE PROTEIN QUANTITATIV 6.31 MG/DL (0.00-0.30); CALCIUM LEVEL 7.8 MG/DL (8.8-10.2); CARBON DIOXIDE LEVEL 27 MEQ/L (21-32); CHLORIDE LEVEL 104 MEQ/L (98-107); CREATININE FOR GFR 0.34 MG/DL (0.55-1.30); GLOMERULAR FILTRATION RATE > 60.0 (>39); GLUCOSE, FASTING 76 MG/DL (70-100); MAGNESIUM LEVEL 1.8 MG/DL (1.8-2.4); POTASSIUM SERUM 3.9 MEQ/L (3.5-5.1); SODIUM LEVEL 138 MEQ/L (136-145); TOTAL PROTEIN 4.9 GM/DL (6.4-8.2)
[2018-05-29 08:00] VITALS: BP 127/58
[2018-05-29] MEDS: carBAMazepine XR 200 MG TAB PO SCH (08:27)
[2018-05-29] MEDS: ACETAMINOPHEN TAB 650MG DOSE (2X325MG) PO PRN (10:13)
[2018-05-29] MEDS ORDERED: diphenhydrAMINE 25 MG CAP PO ONE (10:15)
[2018-05-29] MEDS: SODIUM CHLORIDE 0.9% INJ 10 ML SYR IV PRN (12:07)
[2018-05-29 13:45] VITALS: BP 127/57
--- NOTE | 2018-05-29 16:12 | DS.PDOC ---
Discharge Summary General Date of Admission May 24, 2018 at 22:46 Date of Discharge 05/29/18 Attending Physician: CELSO MCGINNIS MD Specialist/Consultants Involve: MELIDA ARELLANO MD, [facility] Discharge Summary PROCEDURES PERFORMED DURING STAY: Triple lumen catheter ADMITTING/DISCHARGE DIAGNOSES: 1. Fever of unknown origin 2. Chronic pancytopenia 3. AML, failed chemotherapy 4. History of depression COMPLICATIONS/CHIEF COMPLAINT: HISTORY OF PRESENT ILLNESS/HOSPITAL COURSE: This is a 77-year-old female past medical history of AML, and had failed chemotherapy and is currently transfusion dependent for which she goes twice a week. Patient has presented with fever after her transfusion, and had an extensive workup, with infectious disease consultation, with no source of infection noted. Antiemetics have been discontinued and the patient has been doing well. It is questionable whether her underlying AML is contributing to her fever. The patient did have a PICC line in place which was removed, and an interval TLC was placed, and when blood cultures were negative, infectious disease recommended replacing the PICC line, as the patient will need it for her scheduled blood transfusions outpatient. Patient is hemodynamically stable, and has received multiple PRBC as well as platelet transfusions. I have had extensive discussion with the patient and the family regarding comfort care given the patient's grave diagnosis, and guarded prognosis. They appreciated the input, however noted that they are not sure sitting comfortable hospice care at this time, and would like to continue with their schedule transfusions. Patient is now hemodynamically stable, and will be discharged home with outpatient follow-up with her investigative analyst/oncologist, as well as primary care physician.. Patient is to return to the ED if symptoms worsen. DISCHARGE MEDICATIONS: Please see below. ALLERGIES: Please see below. PHYSICAL EXAMINATION ON DISCHARGE: Vitals: (see below) General: No acute distress, laying comfortably in bed. Cachectic HEENT: Moist mucous membranes. Neck: No JVD or lymphadenopathy Cardiac: RRR, No murmurs Pulm: Clear to auscultation b/l. No wheezing, rhonchi Abd: NT/ND + BS Ext: No edema or cyanosis LABORATORY DATA: Please see below. PROGNOSIS: Guarded ACTIVITY: As tolerated. DIET: As tolerated DISCHARGE PLAN/DISPOSITION: Home with family DISCHARGE INSTRUCTIONS: 1. Follow-up with investigative analyst/oncologist, as well as primary care physician in 1 week.. Patient is to return to the ED if symptoms worsen. DISCHARGE CONDITION: Stable. TIME SPENT ON DISCHARGE: Greater than 30 minutes. Vital Signs/I&Os Vital Signs Date Time Temp Pulse Resp B/P (MAP) Pulse Ox O2 Delivery O2 Flow Rate FiO2 05/29/18 08:00 98.0 88 18 127/58 (81) 98 Room Air I&O- Last 24 Hours up to 6 AM 05/29/18 06:00 Intake Total 1254 ml Output Total 825 ml Balance 429 ml Laboratory Data Labs 24H Laboratory Tests 2 05/29/18 04:57: Immature Granulocyte % (Auto) , White Blood Count 3.4L, Red Blood Count 2.57L, Hemoglobin 7.5L, Hematocrit 23.2L, Mean Corpuscular Volume 90.3, Mean Corpuscular Hemoglobin 29.2, Mean Corpuscular Hemoglobin Concent 32.3, Red Cell Distribution Width 15.0H, Platelet Count 22*L, Neutrophils # (Auto) , Nucleated Red Blood Cells % (auto) 3.2H, Neutrophils 26L, Lymphocytes (Manual) 32, Monoc ytes (Manual) 24H, Metamyelocytes 2H, Myelocytes 5H, Atypical Lymphocytes 11H, Platelet Estimate MARKED DECREASE, Immature Platelet Fraction 1.3, Polychromasia 1+, Basophilic Stippling 1+, Anisocytosis 1+, Anion Gap 7L, Glomerular Filtration Rate > 60.0, Blood Urea Nitrogen 13, Creatinine 0.34L, Sodium Level 138, Potassium Level 3.9, Chloride Level 104, Carbon Dioxide Level 27, Calcium Level 7.8L, Aspartate Amino Transf (AST/SGOT) 57H, Alanine Aminotransferase (ALT/SGPT) 43, Alkaline Phosphatase 97, Total Bilirubin 0.5, Total Protein 4.9L, Albumin 2.6L, Magnesium Level 1.8, C-Reactive Protein, Quantitative 6.31H, Albumin/Globulin Ratio 1.13 CBC/BMP Laboratory Tests 05/29/18 04:57 Red Blood Count 2.57 L, Mean Corpuscular Volume 90.3, Mean Corpuscular Hemoglobin 29.2, Mean Corpuscular Hemoglobin Concent 32.3, Red Cell Distribution Width 15.0 H, Neutrophils # (Auto) , Calcium Level 7.8 L, Aspartate Amino Transf (AST/SGOT) 57 H, Alanine Aminotransferase (ALT/SGPT) 43, Alkaline Phosphatase 97, Total Bilirubin 0.5, Total Protein 4.9 L, Albumin 2.6 L Microbiology Microbiology 05/25/18 Blood Culture - Preliminary, Resulted No Growth after 72 hours. All specime... 05/24/18 Blood Culture - Preliminary, Resulted No Growth after 72 hours. All specime... 05/25/18 MRSA Screen - Final, Complete 05/24/18 Urine Culture - Final, Complete Discharge Medications Scheduled Carbamazepine (TEGretol XR) 200 Mg Martine, 400 MG PO BID, (Reported) Allergies Coded Allergies: Butorphanol (Verified Allergy, Unknown, 12/28/16) shortness of breath Fentanyl (Verified Allergy, Unknown, 12/28/16) shortness of breath Hydrochlorothiazide (Verified Allergy, Unknown, 12/28/16) possible diplopia Hydrocodone (Verified Allergy, Unknown, 12/28/16) shortness of breath Meperidine (Verified Allergy, Unknown, 12/28/16) shortness of breath Morphine (Verified Allergy, Unknown, 12/28/16) shortness of breath RADHA Inhibitors (Verified Adverse Reaction, Unknown, 12/28/16) cough Opium (Verified Adverse Reaction, Unknown, OPIUM ALKALOIDS, 02/08/17) CELSO MCGINNIS MD May 29, 2018 16:12
[2018-05-29 16:33] VITALS: BP 118/64
[2018-05-29 17:01] LABS: HEMATOCRIT 27.7 % (36.0-47.0); HEMOGLOBIN 9.1 g/dl (12.0-15.5); MEAN CORPUSCULAR HEMOGLOBIN 29.6 pg (27.0-33.0); MEAN CORPUSCULAR HGB CONC 32.9 g/dl (32.0-36.5); MEAN CORPUSCULAR VOLUME 90.2 fl (80.0-96.0); RED BLOOD COUNT 3.07 10^6/uL (4.00-5.40); WHITE BLOOD COUNT 4.7 10^3/uL (4.0-10.0)
[2018-05-29 17:03] LABS: PLATELET COUNT, AUTOMATED 48 10^3/uL (150-450)
[2018-06-03 00:07] LABS: CMV QUANT DNA PCR (PLASMA) Negative (Negative)
== END 2018-05-29 19:01 | disposition home or self-care (01) | DRG 864 ==
LOC: M ED 19:27 → M ED INP 22:46 → M ICU 05-25 17:22 → M PCU 05-26 13:32
PROVIDERS: ADMIT Internal Medicine; ATTEND Internal Medicine
PROC: 30233N1 Transfusion of Nonautologous Red Blood Cells into Peripheral Vein, Percutaneous Approach (ICD-10-PCS; principal; 2018-05-25)
PROC: 30233R1 Transfusion of Nonautologous Platelets into Peripheral Vein, Percutaneous Approach (ICD-10-PCS; 2018-05-25)
PROC: 30233N1 Transfusion of Nonautologous Red Blood Cells into Peripheral Vein, Percutaneous Approach (ICD-10-PCS; 2018-05-27)
DX: R50.9 Fever, unspecified (principal); C92.00 Acute myeloblastic leukemia, not having achieved remission; D61.818 Other pancytopenia; F32.9 Major depressive disorder, single episode, unspecified; Z88.5 Allergy status to narcotic agent; Z88.8 Allergy status to other drugs, medicaments and biological substances; Z66 Do not resuscitate

== ENCOUNTER 2018-06-01 13:52 | Observation (INO) | payer MEDICARE, MEDICAID ==
[~2018-06-01] VITALS: Ht 160 cm; Wt 51.8 kg
[2018-06-01 15:01] LABS: HEMOGLOBIN 9.6 g/dl (12.0-15.5); MEAN CORPUSCULAR HEMOGLOBIN 30.3 pg (27.0-33.0); MEAN CORPUSCULAR HGB CONC 33.1 g/dl (32.0-36.5); MEAN CORPUSCULAR VOLUME 91.5 fl (80.0-96.0); RED BLOOD COUNT 3.17 10^6/uL (4.00-5.40); WHITE BLOOD COUNT 6.8 10^3/uL (4.0-10.0)
[2018-06-01 15:03] LABS: PLATELET COUNT, AUTOMATED 16 10^3/uL (150-450)
[2018-06-01 15:11] LABS: INR 1.12; PROTHROMBIN TIME 14.5 SECONDS (12.1-14.4)
[2018-06-01 15:15] LABS: ALBUMIN 3.1 GM/DL (3.2-5.2); ALT/SGPT 45 U/L (12-78); BILIRUBIN,TOTAL 0.6 MG/DL (0.2-1.0); BLOOD UREA NITROGEN 13 MG/DL (7-18); CALCIUM LEVEL 8.2 MG/DL (8.8-10.2); CARBON DIOXIDE LEVEL 27 MEQ/L (21-32); CHLORIDE LEVEL 98 MEQ/L (98-107); CREATININE FOR GFR 0.47 MG/DL (0.55-1.30); GLOMERULAR FILTRATION RATE > 60.0 (>39); GLUCOSE, FASTING 148 MG/DL (70-100); SODIUM LEVEL 135 MEQ/L (136-145); TOTAL PROTEIN 5.5 GM/DL (6.4-8.2)
[2018-06-01 15:57] LABS: LYMPHOCYTES 7 % (16-52); METAMYELOCYTES 3 % (0-0); MONOCYTES 34 % (0-8); MYELOCYTES 2 % (0-0); NEUTROPHILS 13 % (35-75)
[2018-06-01 15:58] LABS: ATYPICAL LYMPH 12 % (0-5); BLAST CELLS 8 % (0-0); NUCLEATED RED BLOOD CELL 4 % (0-0); PLATELET ESTIMATE MARKED DECREASE (NORMAL)
[2018-06-01 15:59] LABS: POLYCHROMASIA 1+
[2018-06-01 16:00] LABS: MICROCYTOSIS 1+; SCHISTOCYTES 1+
[2018-06-01] MEDS ORDERED: VITA100066 PO (17:34)
[2018-06-01] MEDS ORDERED: CARB400T4 PO (17:34)
[2018-06-01] MEDS ORDERED: diphenhydrAMINE INJ 50MG/ML VIAL (J1200) IM ONE (17:45)
[2018-06-01] MEDS ORDERED: ACETAMINOPHEN TAB 650MG DOSE (2X325MG) PO PRN (18:30)
[2018-06-01 19:45] VITALS: BP 125/62
[2018-06-01] MEDS ORDERED: diphenhydrAMINE INJ 50MG/ML VIAL (J1200) IV STA (21:24)
[2018-06-01 22:02] VITALS: BP 112/57
[2018-06-01 22:17] VITALS: BP 125/61
[2018-06-01] MEDS: carBAMazepine XR 200 MG TAB PO SCH (22:23)
[2018-06-01 23:02] VITALS: BP 110/57
[2018-06-01 23:50] VITALS: BP 118/61
[2018-06-02 00:50] VITALS: BP 120/63
[2018-06-02 05:33] VITALS: BP 101/58
[2018-06-02 05:40] LABS: HEMATOCRIT 26.3 % (36.0-47.0); HEMOGLOBIN 8.5 g/dl (12.0-15.5); MEAN CORPUSCULAR HEMOGLOBIN 29.6 pg (27.0-33.0); MEAN CORPUSCULAR HGB CONC 32.3 g/dl (32.0-36.5); MEAN CORPUSCULAR VOLUME 91.6 fl (80.0-96.0); RED BLOOD COUNT 2.87 10^6/uL (4.00-5.40); WHITE BLOOD COUNT 5.9 10^3/uL (4.0-10.0)
[2018-06-02 05:42] LABS: PLATELET COUNT, AUTOMATED 25 10^3/uL (150-450)
[2018-06-02 06:04] LABS: ANISOCYTOSIS 1+; ATYPICAL LYMPH 4 % (0-5); BLAST CELLS 3 % (0-0); LYMPHOCYTES 28 % (16-52); METAMYELOCYTES 1 % (0-0); MONOCYTES 27 % (0-8); MYELOCYTES 6 % (0-0); NEUTROPHILS 30 % (35-75); PLATELET ESTIMATE MARKED DECREASE (NORMAL)
[2018-06-02 06:26] LABS: ALBUMIN 2.9 GM/DL (3.2-5.2); BLOOD UREA NITROGEN 12 MG/DL (7-18); CARBON DIOXIDE LEVEL 31 MEQ/L (21-32); CHLORIDE LEVEL 101 MEQ/L (98-107); CREATININE FOR GFR 0.39 MG/DL (0.55-1.30); GLOMERULAR FILTRATION RATE > 60.0 (>39); GLUCOSE, FASTING 76 MG/DL (70-100); PHOSPHORUS LEVEL 4.6 MG/DL (2.5-4.9); SODIUM LEVEL 139 MEQ/L (136-145)
[2018-06-02] MEDS: VITAMIN D 1,000 INTERNATIONAL UNITS TABLET PO SCH (08:44)
[2018-06-02] MEDS: carBAMazepine XR 200 MG TAB PO SCH ×2 (08:44→20:36)
--- NOTE | 2018-06-02 10:42 | IPNPDOC ---
Text Note Date of Service The patient was seen on 06/02/18. NOTE Subjective: Pt notes she was sitting on her recliner when she noticed bleeding from her PICC line site. No bleeding overnight. No GI bleed. Objective: Vitals: (see below) General: No acute distress, laying comfortably in bed. HEENT: Moist mucous membranes. Neck: No JVD or lymphadenopathy. Cardiac: RRR, No murmurs Pulm: Clear to auscultation b/l. No wheezing, rhonchi Abd: NT/ND + BS Ext: No edema or cyanosis. RLE PICC Line with remainder of prior oozing of blood, however no active bleeding. Distal pulse intact. Cap refill <2sec. Labs (see below) Assessment/Plan 1. Bleeding from PICC line site with baseline chronic pancytopenia secondary to underlying AML. Patient's is receiving supportive care for her AML since 2016, and is no longer on chemotherapy. Transfused [address] Torres's recommendations on last admission, transfuse for plat <15. Currently 25. Hb stable. Cont to monitor. 3. History of depression continue home meds DVT prophy: SCDs Overall prognosis guarded.The patient would like to continue active medical care with transfusions as needed, and does not want to entertain comfort measures only at this time. Plan to discharge the next 24 hours if blood counts are stable and pt does not have any further bleeding. She understanding that this will continue to be a recurrent issue. VS,Fishbone, I+O VS, Fishbone, I+O Laboratory Tests 06/01/18 14:34 Red Blood Count 3.17 L, Mean Corpuscular Volume 91.5, Mean Corpuscular Hemoglobin 30.3, Mean Corpuscular Hemoglobin Concent 33.1, Red Cell Distribution Width 15.0 H, Monocytes # (Auto) , Calcium Level 8.2 L, Aspartate Amino Transf (AST/SGOT) 58 H, Alanine Aminotransferase (ALT/SGPT) 45, Alkaline Phosphatase 112, Total Bilirubin 0.6, Total Protein 5.5 L, Albumin 3.1 L 06/02/18 05:31 Red Blood Count 2.87 L, Mean Corpuscular Volume 91.6, Mean Corpuscular Hemoglobin 29.6, Mean Corpuscular Hemoglobin Concent 32.3, Red Cell Distribution Width 15.0 H, Monocytes # (Auto) , Anion Gap 7 L Vital Signs Date Time Temp Pulse Resp B/P (MAP) Pulse Ox O2 Delivery O2 Flow Rate FiO2 06/02/18 05:33 98.3 86 14 101/58 (72) 93 Room Air I&O- Last 24 Hours up to 6 AM 06/02/18 06:00 Intake Total 0 ml Output Total 1250 ml Balance -1250 ml CELSO MCGINNIS MD Jun 02, 2018 10:42
--- NOTE | 2018-06-02 12:00 | HPE ---
DATE OF ADMISSION: 06/01/2018 PRIMARY CARE PROVIDER: Kenyon Lozada MD in [place]. ATTENDING PHYSICIAN: Janak Salazar MD She complains of bleeding from peripherally inserted central catheter (PICC) line with severe thrombocytopenia. HISTORY: Marce Holbrook is a 77-year-old just discharged from the hospitalist service where she was admitted from 05/25/2018 - 05/29/2018, had a fever of unknown origin. She has history of acute myeloblastic leukemia (AML) for which she has failed chemotherapy. She gets periodic transfusions of both blood and platelets. She has received almost 100 units of platelets, almost 70 units of blood. She is in today because her PICC line in her right upper arm has been bleeding since noon and she was found to have a platelet count of 16. PAST MEDICAL HISTORY: Shows refractory acute myeloblastic leukemia on transfusion support. No active treatments since 10/2017. She has a history of depression, chronic anemia and seizure disorder. SOCIAL HISTORY: Unchanged from last admission. FAMILY HISTORY: Unchanged from last admission. MEDICATIONS: - carbamazepine 400 mg twice a day - vitamin D 1000 units daily ALLERGIES: RADHA INHIBITORS, BUTORPHANOL, FENTANYL, HYDROCHLOROTHIAZIDE, HYDROCODONE, MEPERIDINE, MORPHINE, and OPIUM. REVIEW OF SYSTEMS: No fever or chills, cough, shortness of breath. No epistaxis, rectal bleeding or urinary bleeding. All the bleeding has been from her PICC line site. PHYSICAL EXAMINATION: 118/64. Vital signs stable. GENERAL APPEARANCE: Elderly, frail, chronically ill appearing lying in bed visiting with family. HEENT: Unremarkable. LUNGS: Decreased breath sounds but clear. ABDOMEN: The abdomen is soft, nontender. No masses. EXTREMITIES: No clubbing, cyanosis, and edema. NEUROLOGICAL EXAM: Nonfocal. She has oozing blood from her PICC line site right upper extremity. LABORATORIES: White count 6.8, 13% neutrophils, 21% bands for an absolute neutrophil count of about 2000. Hemoglobin is 9.6, platelets 16,000. INR 1.1. Electrolytes are 135, potassium 4, BUN 13, creatinine 0.4, glucose 148. IMPRESSION: 1. Critical thrombocytopenia with active though mild bleeding. The plan was to give the patient platelet transfusion and then send home; however, she requires irradiated phoresis platelets and obtaining those will be problematic; therefore, transfusion in the emergency room is not practical. The patient will be admitted to an observation bed under the care of Dr. Salazar and she can probably discharge tomorrow after she receives her platelets. 2. Seizure disorder. Continue her current Tegretol dose. 3. A history of recent fever or unknown origin. There is no recurrence of fever and her absolute neutrophil count is not neutropenic.
[2018-06-02 14:13] VITALS: BP 99/51
[2018-06-02 18:43] LABS: HEMATOCRIT 25.8 % (36.0-47.0); HEMOGLOBIN 8.5 g/dl (12.0-15.5); MEAN CORPUSCULAR HEMOGLOBIN 29.6 pg (27.0-33.0); MEAN CORPUSCULAR HGB CONC 32.9 g/dl (32.0-36.5); MEAN CORPUSCULAR VOLUME 89.9 fl (80.0-96.0); RED BLOOD COUNT 2.87 10^6/uL (4.00-5.40); WHITE BLOOD COUNT 5.9 10^3/uL (4.0-10.0)
[2018-06-02 18:45] LABS: PLATELET COUNT, AUTOMATED 18 10^3/uL (150-450)
[2018-06-02 19:09] LABS: BLOOD UREA NITROGEN 17 MG/DL (7-18); CALCIUM LEVEL 8.3 MG/DL (8.8-10.2); CARBON DIOXIDE LEVEL 27 MEQ/L (21-32); CHLORIDE LEVEL 100 MEQ/L (98-107); GLOMERULAR FILTRATION RATE > 60.0 (>39); GLUCOSE, FASTING 151 MG/DL (70-100); POTASSIUM SERUM 4.1 MEQ/L (3.5-5.1); SODIUM LEVEL 137 MEQ/L (136-145)
[2018-06-02 20:00] VITALS: BP 105/58
[2018-06-02] MEDS ORDERED: diphenhydrAMINE INJ 50MG/ML VIAL (J1200) IV ONE (21:00)
[2018-06-03 01:00] VITALS: BP 94/54
[2018-06-03 01:15] VITALS: BP 110/57
[2018-06-03 02:15] VITALS: BP 110/53
[2018-06-03 06:00] VITALS: BP 94/54
[2018-06-03 06:41] LABS: HEMATOCRIT 25.4 % (36.0-47.0); HEMOGLOBIN 8.2 g/dl (12.0-15.5); MEAN CORPUSCULAR HEMOGLOBIN 29.4 pg (27.0-33.0); MEAN CORPUSCULAR HGB CONC 32.3 g/dl (32.0-36.5); RED BLOOD COUNT 2.79 10^6/uL (4.00-5.40); WHITE BLOOD COUNT 5.9 10^3/uL (4.0-10.0)
[2018-06-03 06:45] LABS: PLATELET COUNT, AUTOMATED 38 10^3/uL (150-450)
[2018-06-03] MEDS: VITAMIN D 1,000 INTERNATIONAL UNITS TABLET PO SCH (08:38)
[2018-06-03] MEDS: carBAMazepine XR 200 MG TAB PO SCH (08:38)
[2018-06-03 14:00] VITALS: BP 129/70
--- NOTE | 2018-06-03 16:34 | DSES ---
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 HISTORY OF PRESENT ILLNESS: This is a 77-year-old female patient with underlying medical history of acute myeloblastic leukemia, terminal, on transfusion support, recently admitted 05/25/2018 to 05/29/2018 with fever of unknown origin. Patient was started on broad-spectrum antibiotics during that admission and was treated, receiving transfusion, packed red blood cell (PRBC), platelets and Cryoprecipitate during that admission. Infectious disease was consulted. Patient's PICC line was discontinued, triple lumen central line was inserted, and after culture is negative antibiotics was discontinued. PICC line was reinserted, triple lumen central line was discontinued, and patient was discharged. Patient returned with bleeding from right upper arm PICC line site, found to have platelets of 16. HOSPITAL COURSE: Patient is admitted to the hospital. Pressure dressing was placed. Received two units of irradiated platelets and one unit of irradiated leukocyte reduced PRBC. PICC line site shows bleeding has resolved. Subsequently, patient is discharged from the hospital for further care as outpatient. Patient is to resume bi-weekly blood draws with transfusion almost weekly. VITAL SIGNS: Temperature 99.4, pulse 77, respirations 16, blood pressure 129/70, pulse oximetry 94% on room air. GENERAL: Patient alert, comfortable, in no acute distress. HEENT: Normocephalic, atraumatic. PULMONARY: Bilateral clear. CARDIAC: Regular, S1, S2. EXTREMITIES: Right upper extremity PICC line site with only dry blood, no active bleeding. No edema bilateral lower extremities. LABORATORY DATA: WBC 5.9, hemoglobin and hematocrit 8.2/25.4, platelets 38. Chemistry: Sodium 137, potassium 4.1, chloride 100, bicarbonate 27, BUN 17, creatinine 0.6. DISCHARGE MEDICATIONS: - carbamazepine 400 mg by mouth twice a day - vitamin D 1000 units by mouth daily DISCHARGE INSTRUCTIONS: Please followup with primary care provider in 7 days. Further transfusion as per patient's oncologist. PRBC was ordered by Dr. Michelle Braden. Case was discussed with Dr. Michelle Braden. Repeat CBC bi-weekly, transfuse as needed as per oncology. Return to the hospital if symptoms worsen. 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 Poor overall prognosis.
== END 2018-06-03 15:35 | disposition home or self-care (01) ==
LOC: M ED 13:52 → M ED INP 18:25 → M MS4PR 19:45
PROVIDERS: ADMIT Internal Medicine; ATTEND Hospitalist
DX: T82.838A Hemorrhage due to vascular prosthetic devices, implants and grafts, initial encounter (principal); C92.00 Acute myeloblastic leukemia, not having achieved remission; D69.59 Other secondary thrombocytopenia; F32.9 Major depressive disorder, single episode, unspecified; G40.909 Epilepsy, unspecified, not intractable, without status epilepticus; Z79.899 Other long term (current) drug therapy; Z88.5 Allergy status to narcotic agent; Z88.8 Allergy status to other drugs, medicaments and biological substances; Y82.8 Other medical devices associated with adverse incidents
CPT/HCPCS: 36415; 36430; 80053; 80069; 85025; 85027; 85049; 85055; 85610; 86850; 86900; 86901; 86920; 96374; 96376; 99285; G0378; J1200; P9036; P9040

== ENCOUNTER 2018-06-06 10:25 | Outpatient (CLI) | payer MEDICARE, MEDICAID ==
[~2018-06-06] VITALS: Ht 160 cm; Wt 51.8 kg
[~2018-06-06 10:25] MED LIST changes: +ACETAMINOPHEN TAB 650MG DOSE (2X325MG) PO SCH; +CARB400T4 PO; +VITA100066 PO; +diphenhydrAMINE 25 MG CAP PO SCH
[2018-06-06 10:40] VITALS: BP 129/78
[2018-06-06] MEDS ORDERED: SODIUM CHLORIDE 0.9% INJ 10 ML SYR IV PRN (10:45)
[2018-06-06 11:25] VITALS: BP 104/57
[2018-06-06 12:25] VITALS: BP 101/53
[2018-06-06 13:25] VITALS: BP 98/48
[2018-06-06] MEDS ORDERED: SODIUM CHLORIDE 0.9% INJ 10 ML SYR IV SCH (18:00)
== END 2018-06-06 13:30 | disposition home or self-care (01) ==
LOC: M INFU 10:25
PROVIDERS: ATTEND Internal Medicine Medical Oncology
DX: C92.00 Acute myeloblastic leukemia, not having achieved remission (principal); Z88.8 Allergy status to other drugs, medicaments and biological substances; Z88.5 Allergy status to narcotic agent
CPT/HCPCS: 36430; P9036

== ENCOUNTER 2018-06-13 08:06 | Outpatient (CLI) | payer MEDICARE, MEDICAID ==
[~2018-06-13] VITALS: Ht 157.5 cm; Wt 51.0 kg
[2018-06-13 08:10] VITALS: BP 127/99
[2018-06-13] MEDS ORDERED: SODIUM CHLORIDE 0.9% INJ 10 ML SYR IV PRN (08:30)
[2018-06-13 09:00] VITALS: BP 97/52
[2018-06-13 10:00] VITALS: BP 94/51
[2018-06-13 10:15] VITALS: BP 93/48
[2018-06-13 10:40] VITALS: BP 127/61
[2018-06-13] MEDS ORDERED: SODIUM CHLORIDE 0.9% INJ 10 ML SYR IV SCH (18:00)
== END 2018-06-13 10:40 | disposition home or self-care (01) ==
LOC: M INFU 08:06
PROVIDERS: ATTEND Internal Medicine Medical Oncology
DX: C92.00 Acute myeloblastic leukemia, not having achieved remission (principal); Z88.8 Allergy status to other drugs, medicaments and biological substances; Z88.5 Allergy status to narcotic agent
CPT/HCPCS: 36430; P9036

== ENCOUNTER 2018-06-17 06:34 | Outpatient (CLI) | payer MEDICARE, MEDICAID ==
[2018-06-17] VITALS (7 sets, daily range): BP systolic 94–105; BP diastolic 50–57
[~2018-06-17] VITALS: Ht 157.5 cm; Wt 51.0 kg
[~2018-06-17 06:34] MED LIST changes: -ACETAMINOPHEN TAB 650MG DOSE (2X325MG) PO SCH; -diphenhydrAMINE 25 MG CAP PO SCH
[2018-06-17] MEDS ORDERED: diphenhydrAMINE 25 MG CAP PO SCH (07:00)
[2018-06-17] MEDS ORDERED: ACETAMINOPHEN TAB 650MG DOSE (2X325MG) PO SCH (07:01)
[2018-06-17] MEDS ORDERED: SODIUM CHLORIDE 0.9% INJ 10 ML SYR IV PRN (07:15)
[2018-06-17] MEDS ORDERED: SODIUM CHLORIDE 0.9% INJ 10 ML SYR IV SCH (18:00)
== END 2018-06-17 11:45 | disposition home or self-care (01) ==
LOC: M INFU 06:34
PROVIDERS: ATTEND Internal Medicine Medical Oncology
DX: C92.00 Acute myeloblastic leukemia, not having achieved remission (principal); Z88.8 Allergy status to other drugs, medicaments and biological substances; Z88.5 Allergy status to narcotic agent
CPT/HCPCS: 36415; 36430; 86850; 86920; P9036; P9040

== ENCOUNTER 2018-06-20 10:32 | Outpatient (CLI) | payer MEDICARE, MEDICAID ==
[~2018-06-20] VITALS: Ht 157.5 cm; Wt 51.0 kg
[2018-06-20 10:40] VITALS: BP 119/68
[2018-06-20] MEDS ORDERED: SODIUM CHLORIDE 0.9% INJ 10 ML SYR IV PRN (11:00)
[2018-06-20] MEDS ORDERED: diphenhydrAMINE 25 MG CAP PO ONE (11:00)
[2018-06-20] MEDS ORDERED: ACETAMINOPHEN TAB 650MG DOSE (2X325MG) PO ONE (11:00)
[2018-06-20 11:30] VITALS: BP 108/54
[2018-06-20 12:30] VITALS: BP 90/45
[2018-06-20 13:00] VITALS: BP 105/49
[2018-06-20] MEDS ORDERED: SODIUM CHLORIDE 0.9% INJ 10 ML SYR IV SCH (18:00)
== END 2018-06-20 13:00 | disposition home or self-care (01) ==
LOC: M INFU 10:32
PROVIDERS: ATTEND Internal Medicine Medical Oncology
DX: C92.00 Acute myeloblastic leukemia, not having achieved remission (principal); Z88.8 Allergy status to other drugs, medicaments and biological substances; Z88.5 Allergy status to narcotic agent
CPT/HCPCS: 36430; P9036

== ENCOUNTER 2018-06-24 09:09 | Outpatient (CLI) | payer MEDICARE, MEDICAID ==
[~2018-06-24] VITALS: Ht 157.5 cm; Wt 51.0 kg
[~2018-06-24 09:09] MED LIST changes: +ACETAMINOPHEN TAB 650MG DOSE (2X325MG) PO SCH; +diphenhydrAMINE 25 MG CAP PO SCH
[2018-06-24] MEDS ORDERED: SODIUM CHLORIDE 0.9% INJ 10 ML SYR IV PRN (09:15)
[2018-06-24 09:30] VITALS: BP 106/64
[2018-06-24 13:53] VITALS: BP 122/59
[2018-06-24] MEDS ORDERED: SODIUM CHLORIDE 0.9% INJ 10 ML SYR IV SCH (18:00)
== END 2018-06-24 14:00 | disposition home or self-care (01) ==
LOC: M INFU 09:09
PROVIDERS: ATTEND Internal Medicine Medical Oncology
DX: C92.00 Acute myeloblastic leukemia, not having achieved remission (principal); Z88.8 Allergy status to other drugs, medicaments and biological substances; Z88.5 Allergy status to narcotic agent
CPT/HCPCS: 36415; 36430; 86850; 86900; 86901; 86920; P9036; P9040

== ENCOUNTER 2018-06-27 09:56 | Outpatient (CLI) | payer MEDICARE, MEDICAID ==
[~2018-06-27] VITALS: Ht 160 cm; Wt 51.0 kg
[2018-06-27 10:00] VITALS: BP 102/50
[2018-06-27] MEDS ORDERED: SODIUM CHLORIDE 0.9% INJ 10 ML SYR IV PRN (10:15)
[2018-06-27 10:30] VITALS: BP_SYST 108; BP_SYST 156; BP_DIAS 56; BP_DIAS 74
[2018-06-27 11:45] VITALS: BP 96/54
[2018-06-27 12:00] VITALS: BP 116/52
[2018-06-27] MEDS ORDERED: SODIUM CHLORIDE 0.9% INJ 10 ML SYR IV SCH (18:00)
== END 2018-06-27 12:15 | disposition home or self-care (01) ==
LOC: M INFU 09:56
PROVIDERS: ATTEND Internal Medicine Medical Oncology
DX: C92.00 Acute myeloblastic leukemia, not having achieved remission (principal); Z88.5 Allergy status to narcotic agent; Z88.8 Allergy status to other drugs, medicaments and biological substances; Z79.899 Other long term (current) drug therapy
CPT/HCPCS: 36430; P9036

== ENCOUNTER 2018-07-01 07:56 | Outpatient (CLI) | payer MEDICARE, MEDICAID ==
[~2018-07-01] VITALS: Ht 160 cm; Wt 51.0 kg
[~2018-07-01 07:56] MED LIST changes: -ACETAMINOPHEN TAB 650MG DOSE (2X325MG) PO SCH; -diphenhydrAMINE 25 MG CAP PO SCH
[2018-07-01 08:00] VITALS: BP 118/57
[2018-07-01] MEDS ORDERED: diphenhydrAMINE 50 MG CAP PO ONE (08:15)
[2018-07-01] MEDS ORDERED: ACETAMINOPHEN TAB 650MG DOSE (2X325MG) PO ONE (08:15)
[2018-07-01] MEDS ORDERED: SODIUM CHLORIDE 0.9% INJ 10 ML SYR IV PRN (08:15)
[2018-07-01 10:00] VITALS: BP 86/50
[2018-07-01 12:45] VITALS: BP 124/56
[2018-07-01] MEDS ORDERED: SODIUM CHLORIDE 0.9% INJ 10 ML SYR IV SCH (18:00)
== END 2018-07-01 13:00 | disposition home or self-care (01) ==
LOC: M INFU 07:56
PROVIDERS: ATTEND Internal Medicine Medical Oncology
DX: C92.00 Acute myeloblastic leukemia, not having achieved remission (principal)
CPT/HCPCS: 36415; 36430; 86850; 86900; 86901; 86920; P9036; P9040

== ENCOUNTER 2018-07-04 07:38 | Outpatient (CLI) | payer MEDICARE, MEDICAID ==
[~2018-07-04] VITALS: Ht 157.5 cm; Wt 51.0 kg
[~2018-07-04 07:38] MED LIST changes: +ACETAMINOPHEN TAB 650MG DOSE (2X325MG) PO SCH; +SODIUM CHLORIDE 0.9% INJ 10 ML SYR IV PRN; +diphenhydrAMINE 25 MG CAP PO SCH
[2018-07-04 08:10] VITALS: BP 113/55
[2018-07-04 10:53] VITALS: BP 111/55
[2018-07-04] MEDS ORDERED: SODIUM CHLORIDE 0.9% INJ 10 ML SYR IV SCH (18:00)
== END 2018-07-04 10:50 | disposition home or self-care (01) ==
LOC: M INFU 07:38
PROVIDERS: ATTEND Internal Medicine Medical Oncology
DX: C92.00 Acute myeloblastic leukemia, not having achieved remission (principal); Z88.5 Allergy status to narcotic agent; Z88.8 Allergy status to other drugs, medicaments and biological substances
CPT/HCPCS: 36430; P9036

== ENCOUNTER 2018-07-08 08:20 | Outpatient (CLI) | payer MEDICARE, MEDICAID ==
[2018-07-08] VITALS (7 sets, daily range): BP systolic 92–125; BP diastolic 49–58
[~2018-07-08] VITALS: Ht 157.5 cm; Wt 51.0 kg
[2018-07-08] MEDS ORDERED: SODIUM CHLORIDE 0.9% INJ 10 ML SYR IV SCH (18:00)
== END 2018-07-08 12:50 | disposition home or self-care (01) ==
LOC: M INFU 08:20
PROVIDERS: ATTEND Internal Medicine Medical Oncology
DX: C92.00 Acute myeloblastic leukemia, not having achieved remission (principal); Z88.5 Allergy status to narcotic agent; Z88.8 Allergy status to other drugs, medicaments and biological substances
CPT/HCPCS: 36430; 86850; 86900; 86901; 86920; P9036; P9040

== ENCOUNTER 2018-07-15 07:51 | Outpatient (CLI) | payer MEDICARE, MEDICAID ==
[~2018-07-15] VITALS: Ht 154.9 cm; Wt 51.0 kg
[~2018-07-15 07:51] MED LIST changes: -SODIUM CHLORIDE 0.9% INJ 10 ML SYR IV PRN
[2018-07-15 08:00] VITALS: BP 123/55
[2018-07-15] MEDS ORDERED: SODIUM CHLORIDE 0.9% INJ 10 ML SYR IV PRN (08:15)
[2018-07-15 11:15] VITALS: BP 98/56
[2018-07-15 12:15] VITALS: BP 104/66
[2018-07-15 12:58] VITALS: BP 103/54
[2018-07-15] MEDS ORDERED: SODIUM CHLORIDE 0.9% INJ 10 ML SYR IV SCH (18:00)
== END 2018-07-15 13:00 | disposition home or self-care (01) ==
LOC: M INFU 07:51
PROVIDERS: ATTEND Internal Medicine Medical Oncology
DX: C92.00 Acute myeloblastic leukemia, not having achieved remission (principal); Z79.899 Other long term (current) drug therapy; Z88.5 Allergy status to narcotic agent; Z88.8 Allergy status to other drugs, medicaments and biological substances
CPT/HCPCS: 36430; P9036

== ENCOUNTER 2018-07-18 08:02 | Outpatient (CLI) | payer MEDICARE, MEDICAID ==
[~2018-07-18] VITALS: Ht 157.5 cm; Wt 51.0 kg
[~2018-07-18 08:02] MED LIST changes: -ACETAMINOPHEN TAB 650MG DOSE (2X325MG) PO SCH; -diphenhydrAMINE 25 MG CAP PO SCH
[2018-07-18 08:05] VITALS: BP 110/52
[2018-07-18] MEDS ORDERED: SODIUM CHLORIDE 0.9% INJ 10 ML SYR IV PRN (08:15)
[2018-07-18] MEDS ORDERED: ACETAMINOPHEN TAB 650MG DOSE (2X325MG) PO ONE (08:15)
[2018-07-18] MEDS ORDERED: diphenhydrAMINE 50 MG CAP PO ONE (08:15)
[2018-07-18 12:00] VITALS: BP 102/51
[2018-07-18] MEDS ORDERED: SODIUM CHLORIDE 0.9% INJ 10 ML SYR IV SCH (18:00)
== END 2018-07-18 12:00 | disposition home or self-care (01) ==
LOC: M INFU 08:02
PROVIDERS: ATTEND Internal Medicine Medical Oncology
DX: C92.00 Acute myeloblastic leukemia, not having achieved remission (principal); Z88.8 Allergy status to other drugs, medicaments and biological substances; Z88.5 Allergy status to narcotic agent
CPT/HCPCS: 36415; 36430; 86850; 86900; 86901; 86920; P9036; P9040

== ENCOUNTER 2018-07-22 08:19 | Outpatient (CLI) | payer MEDICARE, MEDICAID ==
[~2018-07-22] VITALS: Ht 157.5 cm; Wt 51.0 kg
[~2018-07-22 08:19] MED LIST changes: +ACETAMINOPHEN TAB 650MG DOSE (2X325MG) PO SCH; +diphenhydrAMINE 25 MG CAP PO SCH
[2018-07-22 08:25] VITALS: BP 132/60
[2018-07-22] MEDS ORDERED: SODIUM CHLORIDE 0.9% INJ 10 ML SYR IV PRN (08:30)
[2018-07-22 09:10] VITALS: BP 110/53
[2018-07-22 10:10] VITALS: BP 92/49
[2018-07-22] MEDS ORDERED: SODIUM CHLORIDE 0.9% INJ 10 ML SYR IV SCH (18:00)
== END 2018-07-22 10:30 | disposition home or self-care (01) ==
LOC: M INFU 08:19
PROVIDERS: ATTEND Internal Medicine Medical Oncology
DX: C92.00 Acute myeloblastic leukemia, not having achieved remission (principal); Z88.8 Allergy status to other drugs, medicaments and biological substances; Z88.5 Allergy status to narcotic agent
CPT/HCPCS: 36430; P9036

== ENCOUNTER 2018-07-25 08:38 | Outpatient (CLI) | payer MEDICARE, MEDICAID ==
[~2018-07-25] VITALS: Ht 154.9 cm; Wt 51.0 kg
[~2018-07-25 08:38] MED LIST changes: -ACETAMINOPHEN TAB 650MG DOSE (2X325MG) PO SCH; -diphenhydrAMINE 25 MG CAP PO SCH
[2018-07-25 08:40] VITALS: BP 120/64
[2018-07-25] MEDS ORDERED: diphenhydrAMINE 50 MG CAP PO ONE (09:00)
[2018-07-25] MEDS ORDERED: ACETAMINOPHEN TAB 650MG DOSE (2X325MG) PO ONE (09:00)
[2018-07-25 13:10] VITALS: BP 116/59
== END 2018-07-25 13:10 | disposition home or self-care (01) ==
LOC: M INFU 08:38
PROVIDERS: ATTEND Internal Medicine Medical Oncology
DX: C92.00 Acute myeloblastic leukemia, not having achieved remission (principal); Z88.8 Allergy status to other drugs, medicaments and biological substances; Z88.5 Allergy status to narcotic agent
CPT/HCPCS: 36415; 36430; 86850; 86900; 86901; 86920; P9036; P9040

== ENCOUNTER 2018-07-29 08:26 | Outpatient (CLI) | payer MEDICARE, MEDICAID ==
[2018-07-29] VITALS (8 sets, daily range): BP systolic 89–129; BP diastolic 47–61
[~2018-07-29] VITALS: Ht 156.5 cm; Wt 51.0 kg
[2018-07-29] MEDS ORDERED: SODIUM CHLORIDE 0.9% INJ 10 ML SYR IV PRN (08:45)
[2018-07-29] MEDS ORDERED: diphenhydrAMINE 50 MG CAP PO ONE (08:45)
[2018-07-29] MEDS ORDERED: ACETAMINOPHEN TAB 650MG DOSE (2X325MG) PO ONE (08:45)
[2018-07-29] MEDS ORDERED: SODIUM CHLORIDE 0.9% INJ 10 ML SYR IV SCH (18:00)
== END 2018-07-29 13:25 | disposition home or self-care (01) ==
LOC: M INFU 08:26
PROVIDERS: ATTEND Internal Medicine Medical Oncology
DX: C92.00 Acute myeloblastic leukemia, not having achieved remission (principal); Z88.8 Allergy status to other drugs, medicaments and biological substances; Z88.5 Allergy status to narcotic agent
CPT/HCPCS: 36415; 36430; 86850; 86900; 86901; 86920; P9036; P9040

== ENCOUNTER 2018-08-01 08:37 | Outpatient (CLI) | payer MEDICARE, MEDICAID ==
[~2018-08-01] VITALS: Ht 156.5 cm; Wt 51.0 kg
[~2018-08-01 08:37] MED LIST changes: +ACETAMINOPHEN TAB 650MG DOSE (2X325MG) PO SCH; +SODIUM CHLORIDE 0.9% INJ 10 ML SYR IV PRN; +diphenhydrAMINE 25 MG CAP PO SCH
[2018-08-01 08:45] VITALS: BP 95/53
[2018-08-01 09:20] VITALS: BP 103/54
[2018-08-01 10:20] VITALS: BP 83/43
[2018-08-01 11:15] VITALS: BP 111/69
[2018-08-01] MEDS ORDERED: SODIUM CHLORIDE 0.9% INJ 10 ML SYR IV SCH (18:00)
== END 2018-08-01 11:20 | disposition home or self-care (01) ==
LOC: M INFU 08:37
PROVIDERS: ATTEND Internal Medicine Medical Oncology
DX: C92.00 Acute myeloblastic leukemia, not having achieved remission (principal); Z88.5 Allergy status to narcotic agent; Z88.8 Allergy status to other drugs, medicaments and biological substances
CPT/HCPCS: 36430; P9036

== ENCOUNTER 2018-08-05 09:00 | Outpatient (CLI) | payer MEDICARE, MEDICAID ==
[~2018-08-05] VITALS: Ht 157.5 cm; Wt 51.0 kg
[~2018-08-05 09:00] MED LIST changes: +ACETAMINOPHEN TAB 650MG DOSE (2X325MG) PO ONE; +SODIUM CHLORIDE 0.9% INJ 10 ML SYR IV SCH; +diphenhydrAMINE 25 MG CAP PO ONE
[2018-08-05 09:10] VITALS: BP 107/55
[2018-08-05 15:17] VITALS: BP 116/56
[2018-08-05] MEDS ORDERED: TYLE500T78 PO (23:20)
== END 2018-08-05 15:15 | disposition home or self-care (01) ==
LOC: M INFU 09:00
PROVIDERS: ATTEND Internal Medicine Medical Oncology
DX: C92.00 Acute myeloblastic leukemia, not having achieved remission (principal); Z88.5 Allergy status to narcotic agent; Z88.8 Allergy status to other drugs, medicaments and biological substances

== ENCOUNTER 2018-08-05 20:30 | Inpatient (IN) | payer MEDICARE, MEDICAID ==
[~2018-08-05] VITALS: Ht 152.4 cm; Wt 52.3 kg
[~2018-08-05 20:30] MED LIST changes: -ACETAMINOPHEN TAB 650MG DOSE (2X325MG) PO ONE; -ACETAMINOPHEN TAB 650MG DOSE (2X325MG) PO SCH; -SODIUM CHLORIDE 0.9% INJ 10 ML SYR IV PRN; -SODIUM CHLORIDE 0.9% INJ 10 ML SYR IV SCH; -diphenhydrAMINE 25 MG CAP PO ONE; -diphenhydrAMINE 25 MG CAP PO SCH
[2018-08-05] MEDS ORDERED: ACETAMINOPHEN TAB 650MG DOSE (2X325MG) PO ONE (21:00)
[2018-08-05] MEDS ORDERED: NS 500 ML IV ONE (21:00)
[2018-08-05 21:43] LABS: HEMATOCRIT 23.6 % (36.0-47.0); HEMOGLOBIN 7.9 g/dl (12.0-15.5); MEAN CORPUSCULAR HGB CONC 33.5 g/dl (32.0-36.5); MEAN CORPUSCULAR VOLUME 83.7 fl (80.0-96.0); RED BLOOD COUNT 2.82 10^6/uL (4.00-5.40); WHITE BLOOD COUNT 3.4 10^3/uL (4.0-10.0)
[2018-08-05 21:45] LABS: PLATELET COUNT, AUTOMATED 7 10^3/uL (150-450)
[2018-08-05] MEDS ORDERED: LevoFLOXacin IV 750 MG in APPROPRIATE DILUENT 1 EA IV ONE (22:00)
[2018-08-05 22:06] LABS: BLOOD UREA NITROGEN 19 MG/DL (7-18); CALCIUM LEVEL 7.4 MG/DL (8.8-10.2); CARBON DIOXIDE LEVEL 27 MEQ/L (21-32); CHLORIDE LEVEL 102 MEQ/L (98-107); CREATININE FOR GFR 0.35 MG/DL (0.55-1.30); GLOMERULAR FILTRATION RATE > 60.0 (>39); GLUCOSE, FASTING 95 MG/DL (70-100); POTASSIUM SERUM 4.3 MEQ/L (3.5-5.1); SODIUM LEVEL 134 MEQ/L (136-145)
[2018-08-05 22:10] LABS: ATYPICAL LYMPH 13 % (0-5); LYMPHOCYTES 35 % (16-52); METAMYELOCYTES 1 % (0-0); MONOCYTES 18 % (0-8); MYELOCYTES 2 % (0-0); NEUTROPHILS 26 % (35-75)
[2018-08-05 22:12] LABS: ANISOCYTOSIS 1+; PLATELET ESTIMATE MARKED DECREASE (NORMAL)
[2018-08-05 22:21] LABS: INR 1.21; PROTHROMBIN TIME 15.5 SECONDS (12.1-14.4)
[2018-08-05 22:22] LABS: PARTIAL THROMBOPLASTIN TIME 38.6 SECONDS (25.4-37.6)
[2018-08-05] MEDS ORDERED: TYLE500T78 PO (23:20)
[2018-08-06] MEDS ORDERED: ONDANSETRON 4MG/2ML VIAL (J2405) IV PRN (00:30)
[2018-08-06 02:00] VITALS: BP 132/62
--- NOTE | 2018-08-06 02:28 | REP ---
Clinical: Cough and dyspnea. Technique: PA and lateral. Comparison: 05/24/2018. Findings: Thoracic aortic aneurysm again cannot be excluded. The cardiac silhouette is normal. Evidence for prior sternotomy and aortic valve repair. Right PICC line with tip in the right atrium. The lung willis demonstrate diffuse chronic interstitial changes. Superimposed bibasilar atelectasis (left greater than right) cannot be excluded. Lateral view suggests small pleural effusion. No obvious pneumothorax. Skeletal structures intact. Impression: 1. Chronic-appearing changes. 2. Superimposed basilar atelectasis (left greater than right) and possible small chronic pleural reactions cannot be excluded. Electronically Signed by Marcelino Yu MD 08/06/2018 02:19 A
[2018-08-06] MEDS: NS 1,000 ML IV SCH ×2 (05:17→22:12)
[2018-08-06 06:00] VITALS: BP 146/67
--- NOTE | 2018-08-06 06:53 | HPEPDOC ---
[facility] Medical History & Physical Date of Admission Aug 05, 2018 History and Physical CHIEF COMPLAINT: fever HPI Marce Holbrook is a 77-year-old with history of terminal acute myeloblastic leukemia (AML) for which she has failed chemotherapy,m severely thrombocytopenic, and anemic. She gets periodic transfusions of both blood and platelets. She presented overnight fever since Saturday after receiving transfusions. There is no focal sign of acute infection except for a dry cough. She denied symptoms of chest pain, sob, headache, confusion, hematuria, dysuria, diarrhea , nausea, vomiting, sick contact or recent travel. PAST MEDICAL HISTORY: Shows refractory acute myeloblastic leukemia on transfusion support. No active treatments since 10/2017. depression chronic anemia seizure disorder. SOCIAL HISTORY: lives with family, denied etoh use, smoking or elicit drug use FAMILY HISTORY: noncontributory MEDICATIONS: - carbamazepine 400 mg twice a day - vitamin D 1000 units daily ALLERGIES: RADHA INHIBITORS, BUTORPHANOL, FENTANYL, HYDROCHLOROTHIAZIDE, HYDROCODONE, MEPERIDINE, MORPHINE, and OPIUM. Physical Exam GEN: NAD , thin HEENT: normocephalic, atraumatic, PERRLA, EOMI, externbal ears appears normal, neck supple, no pharyngeal erythema CVS : normal S1, S2 no murmur, rubs or gallops , PMI nondisplaced RESP: LTACB, no rals, rhonchi, crackles or wheezes ABD - +BS, soft, NT, ND , no cva tenderness MSK no joint swelling, FROM, no muscle tenderness skin: mild petechial rash on legs, no hematoma noted Neuro no focal deficit, AOAX2 Lymphatics- no lymphedema, no lymphadenopathy in cervical and supraclavicular chains Psych- normal mood and affect, good judgement and insight LABORATORY DATA: See below. IMAGING: reviewed MICROBIOLOGY: Please see below. ASSESSMENT and Plan fever likely of unknown origin - patient gets recurrent fevers , usually after tranfusion - she was started on levaquin in ed for CAP, but cxr is negative for PNA - will hold off on abx - day team can decide to continue - gentle hydration - ed ordered plt and prbc trnsfusions -tylenol for fever - f/u blood cx No dvt ppx due to thrombocytopenia DNR/DNI, from home Vital Signs Vital Signs Date Time Temp Pulse Resp B/P (MAP) Pulse Ox O2 Delivery O2 Flow Rate FiO2 08/06/18 02:00 97.2 91 18 132/62 (85) 100 08/05/18 23:00 Nasal Cannula 2.0 Laboratory Data Labs 24H Laboratory Tests 2 08/05/18 21:07: Immature Granulocyte % (Auto) , White Blood Count 3.4L, Red Blood Count 2.82L, Hemoglobin 7.9L, Hematocrit 23.6L, Mean Corpuscular Volume 83.7, Mean Corpuscular Hemoglobin 28.0, Mean Corpuscular Hemoglobin Concent 33.5, Red Cell Distribution Width 17.2H, Platelet Count 7*L, Neutrophils # (Auto) , Nucleated Red Blood Cells % (auto) 3.8H, Neutrophils 26L, Band Neutrophils 5, Lymphocytes (Manual) 35, Monocytes (Manual) 18H, Metamyelocytes 1H, Myelocytes 2H, Atypical Lymphocytes 13H, Platelet Estimate MARKED DECREASE, Immature Platelet Fraction 3.5, Anisocytosis 1+, Prothrombin Time 15.5H, Prothromb Time International Ratio 1.21, Activated Partial Thromboplast Time 38.6H, Anion Gap 5L, Glomerular Filtration Rate > 60.0, Lactic Acid Level 0.6, Blood Urea Nitrogen 19H, Creatinine 0.35L, Sodium Level 134L, Potassium Level 4.3, Chloride Level 102, Carbon Dioxide Level 27, Calcium Level 7.4L CBC/BMP Laboratory Tests 08/05/18 21:07 Red Blood Count 2.82 L, Mean Corpuscular Volume 83.7, Mean Corpuscular Hemoglobin 28.0, Mean Corpuscular Hemoglobin Concent 33.5, Red Cell Distribution Width 17.2 H, Neutrophils # (Auto) , Calcium Level 7.4 L Microbiology Microbiology 08/05/18 Blood Culture, Received Pending 08/05/18 Blood Culture, Received Pending 08/05/18 Respiratory Virus Panel (PCR) (VICENTE) - Final, Complete Home Medications Scheduled Carbamazepine (Carbamazepine ER) 400 Mg Tab, 400 MG PO BID Cholecalciferol (Vitamin D) 1,000 Unit Tab, 1,000 UNIT PO DAILY Scheduled PRN Acetaminophen (Tylenol Extra Strength) 500 Mg Tab, 500 MG PO Q4H PRN for PAIN / FEVER Allergies Coded Allergies: Butorphanol (Verified Allergy, Severe, shortness of breath, 08/05/18) Hydrocodone (Verified Allergy, Severe, shortness of breath, 08/05/18) Meperidine (Verified Allergy, Severe, shortness of breath, 08/05/18) Morphine (Verified Allergy, Severe, shortness of breath, 08/05/18) Fentanyl (Verified Allergy, Intermediate, shortness of breath, 08/05/18) Hydrochlorothiazide (Verified Adverse Reaction, Intermediate, possible dip lopia, 08/05/18) RADHA Inhibitors (Verified Adverse Reaction, Mild, cough, 08/05/18) Opium (Verified Adverse Reaction, Unknown, OPIUM ALKALOIDS, 08/05/18) JESSICA PICKETT MD Aug 06, 2018 04:28
[2018-08-06 08:10] VITALS: BP 157/67
[2018-08-06 08:20] LABS: HEMATOCRIT 27.5 % (36.0-47.0); HEMOGLOBIN 9.3 g/dl (12.0-15.5); MEAN CORPUSCULAR HEMOGLOBIN 28.3 pg (27.0-33.0); MEAN CORPUSCULAR HGB CONC 33.8 g/dl (32.0-36.5); MEAN CORPUSCULAR VOLUME 83.6 fl (80.0-96.0); RED BLOOD COUNT 3.29 10^6/uL (4.00-5.40); WHITE BLOOD COUNT 3.8 10^3/uL (4.0-10.0)
[2018-08-06 08:23] LABS: PLATELET COUNT, AUTOMATED 27 10^3/uL (150-450)
[2018-08-06 08:37] LABS: BLOOD UREA NITROGEN 15 MG/DL (7-18); CALCIUM LEVEL 7.9 MG/DL (8.8-10.2); CARBON DIOXIDE LEVEL 25 MEQ/L (21-32); CHLORIDE LEVEL 101 MEQ/L (98-107); CREATININE FOR GFR 0.34 MG/DL (0.55-1.30); GLOMERULAR FILTRATION RATE > 60.0 (>39); GLUCOSE, FASTING 95 MG/DL (70-100); MAGNESIUM LEVEL 1.6 MG/DL (1.8-2.4); POTASSIUM SERUM 4.1 MEQ/L (3.5-5.1); SODIUM LEVEL 133 MEQ/L (136-145)
[2018-08-06] MEDS: SENOKOT S TAB PO SCH ×2 (09:00→21:00)
[2018-08-06] MEDS: carBAMazepine XR 200 MG TAB PO SCH ×2 (09:48→21:38)
[2018-08-06] MEDS: ACETAMINOPHEN TAB 650MG DOSE (2X325MG) PO PRN ×2 (09:48→16:09)
[2018-08-06 12:00] VITALS: BP 147/67
[2018-08-06] MEDS ORDERED: MAG SULF 1GM/100ML (MAG RUN) 1 GM in APPROPRIATE DILUENT 1 EA IV ONE (13:00)
[2018-08-06 16:00] VITALS: BP 140/63
--- NOTE | 2018-08-06 21:19 | ECGEPIP ---
Stationary ECG Study [facility] - ED Test Date: 2018-08-05 Pat Name: TRACY LEWIS Department: Room: [place] [address] Gender: F Cushion Builder: steven : 1940 Requested By: TO Fagan Order Number: [id number] Reading MD: Graciela Delarosa Measurements Intervals [place] Rate: 94 P: 58 MA: 173 QRS: -29 QRSD: 106 T: 108 QT: 358 QTc: 449 Interpretive Statements SINUS RHYTHM POSSIBLE LEFT ATRIAL ENLARGEMENT BORDERLINE LEFT AXIS DEVIATION NONSPECIFIC T-WAVE ABNORMALITY POSSIBLE PRIOR INFERIOR INFARCT INCREASED RATE 05/25/18 Electronically Signed On 08-06-2018 21:19:25 EDT by Graciela Delarosa
[2018-08-06 22:00] VITALS: BP 146/67
[2018-08-06] MEDS ORDERED: LevoFLOXacin IV 750 MG in APPROPRIATE DILUENT 1 EA IV SCH (22:00)
[2018-08-07 06:00] VITALS: BP 131/76
[2018-08-07 08:08] LABS: HEMATOCRIT 29.8 % (36.0-47.0); HEMOGLOBIN 10.1 g/dl (12.0-15.5); MEAN CORPUSCULAR HEMOGLOBIN 28.2 pg (27.0-33.0); MEAN CORPUSCULAR HGB CONC 33.9 g/dl (32.0-36.5); MEAN CORPUSCULAR VOLUME 83.2 fl (80.0-96.0); RED BLOOD COUNT 3.58 10^6/uL (4.00-5.40)
[2018-08-07 08:12] LABS: PLATELET COUNT, AUTOMATED 22 10^3/uL (150-450)
[2018-08-07] MEDS: carBAMazepine XR 200 MG TAB PO SCH ×2 (08:27→20:29)
[2018-08-07] MEDS: SENOKOT S TAB PO SCH ×2 (08:27→20:29)
[2018-08-07] MEDS ORDERED: LevoFLOXacin IV 750 MG in APPROPRIATE DILUENT 1 EA IV ONE (08:30)
[2018-08-07 08:35] LABS: BLOOD UREA NITROGEN 15 MG/DL (7-18); C REACTIVE PROTEIN QUANTITATIV 1.36 MG/DL (0.00-0.30); CALCIUM LEVEL 7.8 MG/DL (8.8-10.2); CARBON DIOXIDE LEVEL 25 MEQ/L (21-32); CHLORIDE LEVEL 101 MEQ/L (98-107); CREATININE FOR GFR 0.34 MG/DL (0.55-1.30); GLOMERULAR FILTRATION RATE > 60.0 (>39); GLUCOSE, FASTING 93 MG/DL (70-100); MAGNESIUM LEVEL 1.7 MG/DL (1.8-2.4); SODIUM LEVEL 134 MEQ/L (136-145)
[2018-08-07] MEDS: LevoFLOXacin IV 750 MG in APPROPRIATE DILUENT 1 EA IV SCH (09:41)
[2018-08-07] MEDS: ACETAMINOPHEN TAB 650MG DOSE (2X325MG) PO PRN (12:19)
[2018-08-07 14:00] VITALS: BP 116/53
--- NOTE | 2018-08-07 14:00 | IPN ---
DATE OF SERVICE: 08/07/2018 SUBJECTIVE: The patient tells me she feels better. She tells me she is not having any further fevers or chills. She denies chest pain or shortness of breath. She denies cough, changes in bowel or bladder habits. No diarrhea, nausea, or vomiting. OBJECTIVE: VITAL SIGNS: Temperature 99.9. Maximum temperature (Tmax) yesterday afternoon was 100.3. Pulse 103. Respiratory rate 18. Blood pressure (BP) 131/76. Oxygen (O2) saturation 94% on room air. GENERAL: She is a frail elderly female, lying flat in bed, accompanied by her daughter. The patient does not appear to be in acute distress. HEENT: She is wearing glasses. Cranial nerves II-XII are grossly intact. Moist mucous membranes. No elevation in central venous pressure (CVP). CARDIOVASCULAR EXAMINATION: S1, S2, regular. She is not tachycardic at the time of my examination. RESPIRATORY EXAMINATION: Is clear. ABDOMINAL EXAMINATION: Is benign. EXTREMITIES: There is no clubbing, cyanosis, or edema. LABORATORY STUDIES: WBC 4.0, hemoglobin 10.1, platelet count 22 down from 27, magnesium 1.5 repleted, ESR within normal limits. Chemistry panel: Sodium 134, potassium 4.0, chloride 101, bicarbonate 25, BUN 15, creatinine 0.3. Blood cultures negative at 24 hours. Respiratory PCR panel is negative. IMAGING: The patient did have a chest x-ray that revealed chronic-appearing changes. Superimposed basilar atelectasis (left greater than right) and possible small chronic pleural reactions cannot be excluded. ASSESSMENT AND PLAN: This is a 77-year-old female with end-stage acute myeloblastic leukemia (AML). PROBLEMS: 1. Fever. The etiology is not immediately clear. She usually has it after transfusions. She is transfusion-dependent almost twice a week at this point, given her advanced and end-stage AML. For the time being, I am monitoring and holding off on any further transfusions. Continue to monitor to see if she remains febrile or if it resolves. I will likely treat her with a 7-day course of Levaquin should all her cultures return negative. Thus far, there is no obvious source. I have asked for a urinalysis with reflex to culture, as this was not previously collected. However, she does not have significant symptoms. There is no other clear etiology. No obvious infiltrate on her chest x-ray. For the time being, we will continue to monitor closely. I will check a procalcitonin. 2. Acute myeloblastic leukemia. Transfusion for platelets and RBCs dependent. Her disease is end-stage. Requiring transfusions almost twice a week. I did have a lengthy discussion both yesterday with her entire family and her daughter today, as well as the patient; and it appears as though her AML is fairly significant and progressed to the end point of end-stage. She is certainly hospice appropriate and will become more transfusion-dependent and more susceptible to infection as her disease progresses. I did express to her that I thought that she certainly had less than 6 months of life left despite vast medical therapies, in my opinion. She did have a very good understanding of this but was not receptive to hospice at this time. All questions were answered to her satisfaction. Her prognosis is quite poor, even with the best medical therapies and interventions. My goal will be to get her fever-free for 24 hours and discharge her home. However, I do not suspect she will be able to stay there for any significant length of time, given her disease process.
[2018-08-07] MEDS: MAG SULF 1GM/100ML (MAG RUN) 1 GM in APPROPRIATE DILUENT 1 EA IV SCH ×2 (14:09→14:10)
[2018-08-07 22:00] VITALS: BP 119/59
[2018-08-08 06:00] VITALS: BP 124/59
[2018-08-08 08:28] LABS: HEMOGLOBIN 9.7 g/dl (12.0-15.5); MEAN CORPUSCULAR HEMOGLOBIN 27.8 pg (27.0-33.0); MEAN CORPUSCULAR HGB CONC 33.4 g/dl (32.0-36.5); MEAN CORPUSCULAR VOLUME 83.1 fl (80.0-96.0); RED BLOOD COUNT 3.49 10^6/uL (4.00-5.40); WHITE BLOOD COUNT 3.8 10^3/uL (4.0-10.0)
[2018-08-08 08:32] LABS: PLATELET COUNT, AUTOMATED 14 10^3/uL (150-450)
[2018-08-08 08:39] LABS: BLOOD UREA NITROGEN 14 MG/DL (7-18); CALCIUM LEVEL 7.6 MG/DL (8.8-10.2); CARBON DIOXIDE LEVEL 25 MEQ/L (21-32); CHLORIDE LEVEL 101 MEQ/L (98-107); CREATININE FOR GFR 0.28 MG/DL (0.55-1.30); GLOMERULAR FILTRATION RATE > 60.0 (>39); GLUCOSE, FASTING 84 MG/DL (70-100); MAGNESIUM LEVEL 1.8 MG/DL (1.8-2.4); SODIUM LEVEL 134 MEQ/L (136-145)
[2018-08-08] MEDS: SENOKOT S TAB PO SCH (09:06)
[2018-08-08] MEDS: carBAMazepine XR 200 MG TAB PO SCH (09:06)
[2018-08-08] MEDS: LevoFLOXacin IV 750 MG in APPROPRIATE DILUENT 1 EA IV SCH (09:06)
[2018-08-08] MEDS ORDERED: LEVO750T13 PO (11:14)
[2018-08-08] MEDS ORDERED: SODIUM CHLORIDE 0.9% INJ 10 ML SYR IV PRN (11:30)
[2018-08-08 14:00] VITALS: BP 100/57
[2018-08-08 15:56] VITALS: BP 132/66
--- NOTE | 2018-08-08 16:21 | DSES ---
DATE OF ADMISSION: 08/06/2018 DATE OF DISCHARGE: DISCHARGE DIAGNOSIS: Fever. SECONDARY DIAGNOSES: Acute myeloid leukemia, thrombocytopenia, anemia. HOSPITAL COURSE: The patient is a 77-year-old female who presented to the emergency room with fever. The patient has known end-stage acute myeloid leukemia and has been recommended hospice by her oncologist. She has been having fevers and feeling unwell at home. There was a concern that she was undergoing symptomatic anemia versus fever related to her leukemia versus fever from yet to be determined source of infection. She was admitted to the hospital and started on levofloxacin and observed. She was transfused two units of packed red blood cells (PRBCs) and two units of platelets. Her fever did subside and she is now greater than 24 hours fever free. She had a positive response to her transfusions. Her blood cultures and respiratory polymerase chain reaction (PCR) panel were negative. A urinalysis (UA) was unremarkable. Her chest x-ray was suggestive of a small chronic pleural reaction as well as superimposed basilar atelectasis left greater than right. It was thought that she may have had some subtle pneumonia. She did improve, her symptoms have resolved, and at this time she is medically stable for discharge home. SUBJECTIVE: The patient tells me that she is feeling well, she has no complaints at this time. OBJECTIVE: VITAL SIGNS: Temperature 98.3, pulse 85, respiratory rate 18, blood pressure 124/59, oxygen saturation 94% on room air. GENERAL: She is a pleasant, elderly, female laying flat in bed, accompanied by a family member. She does not appear to be in any acute distress. HEENT: Cranial nerves II-XII are grossly intact. She has moist mucous membranes. No elevation in central venous pressure (CVP). CARDIOVASCULAR EXAM: S1, S2, regular. RESPIRATORY EXAM: Actually quite clear. ABDOMINAL EXAM: Benign. EXTREMITIES: No clubbing, cyanosis, or edema. LABORATORY STUDIES: WBC 3.8, hemoglobin 9.7, platelet count 14. Chemistry panel: Sodium 134, potassium 4.0, chloride 101, bicarbonate 25, BUN 14, creatinine 0.2. Microbiology and imaging as outlined above. ASSESSMENT AND PLAN: This is a 77-year-old female with a fever. 1. Fever. I suspect she may have had a subtle community-acquired pneumonia versus fever reaction secondary to her transfusions. When she has not received a transfusion for the last 24 hours she is afebrile. I will have her complete a 7 day course of levofloxacin by mouth as she does appear to be improving on this. She does clinically seem to be better at this time following transfusion of packed red blood cells (PRBCs) and platelets. I will provide her with an additional unit of platelets today. 2. Acute myeloid leukemia (AML). She received two units of packed red blood cells (PRBCs) and two units of platelets previously. I will transfuse an additional unit today. As her disease is end-stage and continues to progress, she will become more and more transfusion dependent. I did have a lengthy discussion with her and her family regarding hospice, palliative care, and end-of-life care given that there is no treatment options available to her at this time as per the most recent oncology notes. At this time, she is not ready to accept any of these interventions. I did encourage her to keep them in mind moving forward. I did inform her that her prognosis is poor and although I am discharging her home today, I would not be surprised to see her back very soon within the next few days as she is end-stage, her prognosis is poor. DISPOSITION: She is being discharged home to the care of her family. She will followup with her primary care provider (PCP) in 7 days and followup with oncology as soon as possible. Her activity and diet are as prior to admission. She is to return to the emergency room (ER) if her symptoms worsen. MEDICATIONS: At the time of discharge: - levofloxacin 750 mg one tablet daily for 5 days - Tylenol 500 mg every 4 hours as needed for pain - carbamazepine extended release 400 mg twice a day - vitamin D 1000 units daily Greater than 30 minutes spent organizing disposition.
[2018-08-08] MEDS ORDERED: SODIUM CHLORIDE 0.9% INJ 10 ML SYR IV SCH (18:00)
== END 2018-08-08 18:16 | disposition home health service (06) | DRG 864 ==
LOC: M ED 20:30 → EDBD 20:30 → M ED INP 08-06 00:28 → M MSPAV 08-06 15:46
PROVIDERS: ADMIT Internal Medicine; ATTEND Internal Medicine
PROC: 30233N1 Transfusion of Nonautologous Red Blood Cells into Peripheral Vein, Percutaneous Approach (ICD-10-PCS; principal; 2018-08-06)
PROC: 30233R1 Transfusion of Nonautologous Platelets into Peripheral Vein, Percutaneous Approach (ICD-10-PCS; 2018-08-06)
DX: R50.9 Fever, unspecified (principal); C92.00 Acute myeloblastic leukemia, not having achieved remission; D69.6 Thrombocytopenia, unspecified; Z88.5 Allergy status to narcotic agent; Z88.8 Allergy status to other drugs, medicaments and biological substances

== ENCOUNTER 2018-08-12 08:32 | Outpatient (CLI) | payer MEDICARE, MEDICAID ==
[~2018-08-12] VITALS: Ht 157.5 cm; Wt 52.3 kg
[~2018-08-12 08:32] MED LIST changes: +ACETAMINOPHEN TAB 650MG DOSE (2X325MG) PO SCH; +LEVO750T13 PO; +TYLE500T78 PO; +diphenhydrAMINE 25 MG CAP PO SCH
[2018-08-12 08:40] VITALS: BP 99/55
[2018-08-12] MEDS ORDERED: SODIUM CHLORIDE 0.9% INJ 10 ML SYR IV PRN (09:00)
[2018-08-12 09:30] VITALS: BP 106/56
[2018-08-12 10:30] VITALS: BP 106/56
[2018-08-12 11:10] VITALS: BP 103/52
[2018-08-12] MEDS ORDERED: SODIUM CHLORIDE 0.9% INJ 10 ML SYR IV SCH (18:00)
== END 2018-08-12 11:15 | disposition home or self-care (01) ==
LOC: M INFU 08:32
PROVIDERS: ATTEND Internal Medicine Medical Oncology
DX: C92.00 Acute myeloblastic leukemia, not having achieved remission (principal); Z88.5 Allergy status to narcotic agent; Z88.8 Allergy status to other drugs, medicaments and biological substances
CPT/HCPCS: 36430; P9036

== ENCOUNTER 2018-08-15 08:09 | Outpatient (CLI) | payer MEDICARE, MEDICAID ==
[~2018-08-15] VITALS: Ht 152.4 cm; Wt 52.2 kg
[~2018-08-15 08:09] MED LIST changes: +SODIUM CHLORIDE 0.9% INJ 10 ML SYR IV PRN
[2018-08-15 08:20] VITALS: BP 144/58
[2018-08-15 10:06] VITALS: BP 89/49
[2018-08-15] MEDS ORDERED: SODIUM CHLORIDE 0.9% INJ 10 ML SYR IV SCH (18:00)
== END 2018-08-15 10:30 | disposition home or self-care (01) ==
LOC: M INFU 08:09
PROVIDERS: ATTEND Internal Medicine Medical Oncology
DX: C92.00 Acute myeloblastic leukemia, not having achieved remission (principal); Z88.5 Allergy status to narcotic agent; Z88.8 Allergy status to other drugs, medicaments and biological substances
CPT/HCPCS: 36430; P9036

== ENCOUNTER 2018-08-19 08:11 | Outpatient (CLI) | payer MEDICARE, MEDICAID ==
[~2018-08-19] VITALS: Ht 152.4 cm; Wt 52.2 kg
[~2018-08-19 08:11] MED LIST changes: -SODIUM CHLORIDE 0.9% INJ 10 ML SYR IV PRN
[2018-08-19] MEDS ORDERED: SODIUM CHLORIDE 0.9% INJ 10 ML SYR IV PRN (08:30)
[2018-08-19 08:36] VITALS: BP 104/52
[2018-08-19 12:29] VITALS: BP 113/58
[2018-08-19] MEDS ORDERED: SODIUM CHLORIDE 0.9% INJ 10 ML SYR IV SCH (18:00)
== END 2018-08-19 12:30 | disposition home or self-care (01) ==
LOC: M INFU 08:11
PROVIDERS: ATTEND Internal Medicine Medical Oncology
DX: C92.00 Acute myeloblastic leukemia, not having achieved remission (principal); Z88.5 Allergy status to narcotic agent; Z88.8 Allergy status to other drugs, medicaments and biological substances
CPT/HCPCS: 36415; 36430; 86850; 86900; 86901; 86920; P9036; P9040

== ENCOUNTER 2018-08-22 08:06 | Outpatient (CLI) | payer MEDICARE, MEDICAID ==
[~2018-08-22] VITALS: Ht 152.4 cm; Wt 52.2 kg
[~2018-08-22 08:06] MED LIST changes: -ACETAMINOPHEN TAB 650MG DOSE (2X325MG) PO SCH; -diphenhydrAMINE 25 MG CAP PO SCH
[2018-08-22 08:29] VITALS: BP 109/57
[2018-08-22] MEDS ORDERED: SODIUM CHLORIDE 0.9% INJ 10 ML SYR IV PRN (08:30)
[2018-08-22] MEDS ORDERED: ACETAMINOPHEN TAB 650MG DOSE (2X325MG) PO ONE (08:30)
[2018-08-22] MEDS ORDERED: diphenhydrAMINE 50 MG CAP PO ONE (08:30)
[2018-08-22 12:30] VITALS: BP 110/57
[2018-08-22] MEDS ORDERED: SODIUM CHLORIDE 0.9% INJ 10 ML SYR IV SCH (18:00)
== END 2018-08-22 12:30 | disposition home or self-care (01) ==
LOC: M INFU 08:06
PROVIDERS: ATTEND Internal Medicine Medical Oncology
DX: C92.00 Acute myeloblastic leukemia, not having achieved remission (principal); Z88.5 Allergy status to narcotic agent; Z88.8 Allergy status to other drugs, medicaments and biological substances
CPT/HCPCS: 36430; 86850; 86900; 86901; 86920; P9036; P9040

== ENCOUNTER 2018-08-26 08:55 | Outpatient (CLI) | payer MEDICARE, MEDICAID ==
[~2018-08-26] VITALS: Ht 152.4 cm; Wt 52.2 kg
[~2018-08-26 08:55] MED LIST changes: +ACETAMINOPHEN TAB 650MG DOSE (2X325MG) PO SCH; +diphenhydrAMINE 25 MG CAP PO SCH
[2018-08-26] MEDS ORDERED: SODIUM CHLORIDE 0.9% INJ 10 ML SYR IV PRN (09:15)
[2018-08-26 09:20] VITALS: BP 99/52
[2018-08-26 14:50] VITALS: BP 106/56
[2018-08-26] MEDS ORDERED: SODIUM CHLORIDE 0.9% INJ 10 ML SYR IV SCH (18:00)
== END 2018-08-26 14:50 | disposition home or self-care (01) ==
LOC: M INFU 08:55
PROVIDERS: ATTEND Internal Medicine Medical Oncology
DX: C92.00 Acute myeloblastic leukemia, not having achieved remission (principal); Z88.5 Allergy status to narcotic agent; Z88.8 Allergy status to other drugs, medicaments and biological substances
CPT/HCPCS: 36430; 36591; 86850; 86900; 86901; 86920; P9036; P9040

== ENCOUNTER 2018-08-29 09:04 | Outpatient (CLI) | payer MEDICARE, MEDICAID ==
[~2018-08-29] VITALS: Ht 152.4 cm; Wt 52.2 kg
[~2018-08-29 09:04] MED LIST changes: +ACETAMINOPHEN TAB 650MG DOSE (2X325MG) PO ONE; -ACETAMINOPHEN TAB 650MG DOSE (2X325MG) PO SCH; +SODIUM CHLORIDE 0.9% INJ 10 ML SYR IV SCH; -diphenhydrAMINE 25 MG CAP PO SCH; +diphenhydrAMINE 50 MG CAP PO ONE
[2018-08-29 09:12] VITALS: BP 117/57
[2018-08-29 12:57] VITALS: BP 111/53
== END 2018-08-29 13:00 | disposition home or self-care (01) ==
LOC: M INFU 09:04
PROVIDERS: ATTEND Internal Medicine Medical Oncology
DX: C92.00 Acute myeloblastic leukemia, not having achieved remission (principal); Z88.5 Allergy status to narcotic agent; Z88.8 Allergy status to other drugs, medicaments and biological substances
CPT/HCPCS: 36430; 36591; 86850; 86900; 86901; 86920; P9036; P9040

== ENCOUNTER 2018-09-05 08:48 | Outpatient (CLI) | payer MEDICARE, MEDICAID ==
[~2018-09-05] VITALS: Ht 157.5 cm; Wt 52.2 kg
[~2018-09-05 08:48] MED LIST changes: -SODIUM CHLORIDE 0.9% INJ 10 ML SYR IV SCH
[2018-09-05 08:50] VITALS: BP 132/61
[2018-09-05 09:45] VITALS: BP 107/53
[2018-09-05 10:45] VITALS: BP 99/54
[2018-09-05 11:45] VITALS: BP 106/58
[2018-09-05] MEDS ORDERED: SODIUM CHLORIDE 0.9% INJ 10 ML SYR IV PRN (12:00)
[2018-09-05 12:10] VITALS: BP 133/60
[2018-09-05] MEDS ORDERED: SODIUM CHLORIDE 0.9% INJ 10 ML SYR IV SCH (18:00)
== END 2018-09-05 12:10 | disposition home or self-care (01) ==
LOC: M INFU 08:48
PROVIDERS: ATTEND Nurse Practitioner Family
DX: C92.00 Acute myeloblastic leukemia, not having achieved remission (principal); Z88.5 Allergy status to narcotic agent; Z88.8 Allergy status to other drugs, medicaments and biological substances
CPT/HCPCS: 36430; P9036

== ENCOUNTER 2018-09-09 08:50 | Outpatient (CLI) | payer MEDICARE, MEDICAID ==
[~2018-09-09] VITALS: Ht 152.4 cm; Wt 52.2 kg
[~2018-09-09 08:50] MED LIST changes: -ACETAMINOPHEN TAB 650MG DOSE (2X325MG) PO ONE; +ACETAMINOPHEN TAB 650MG DOSE (2X325MG) PO SCH; +diphenhydrAMINE 25 MG CAP PO SCH; -diphenhydrAMINE 50 MG CAP PO ONE
[2018-09-09 08:59] VITALS: BP 116/74
[2018-09-09 13:50] VITALS: BP 113/60
[2018-09-09] MEDS ORDERED: SODIUM CHLORIDE 0.9% INJ 10 ML SYR IV PRN (14:15)
[2018-09-09] MEDS ORDERED: SODIUM CHLORIDE 0.9% INJ 10 ML SYR IV SCH (18:00)
== END 2018-09-09 14:10 | disposition home or self-care (01) ==
LOC: M INFU 08:50
PROVIDERS: ATTEND Nurse Practitioner Family
DX: C92.00 Acute myeloblastic leukemia, not having achieved remission (principal)
CPT/HCPCS: 36430; 36591; 86850; 86900; 86901; 86920; P9036; P9040

== ENCOUNTER 2018-09-12 08:25 | Outpatient (CLI) | payer MEDICARE, MEDICAID ==
[~2018-09-12] VITALS: Ht 152.4 cm; Wt 52.2 kg
[2018-09-12 08:54] VITALS: BP 138/60
[2018-09-12] MEDS ORDERED: SODIUM CHLORIDE 0.9% INJ 10 ML SYR IV PRN (09:15)
[2018-09-12 10:56] VITALS: BP 106/55
[2018-09-12] MEDS ORDERED: SODIUM CHLORIDE 0.9% INJ 10 ML SYR IV SCH (18:00)
== END 2018-09-12 10:55 | disposition home or self-care (01) ==
LOC: M INFU 08:25
PROVIDERS: ATTEND Internal Medicine Medical Oncology
DX: C92.00 Acute myeloblastic leukemia, not having achieved remission (principal)
CPT/HCPCS: 36430; P9036

== ENCOUNTER 2018-09-16 08:41 | Outpatient (CLI) | payer MEDICARE, MEDICAID ==
[2018-09-16] VITALS (10 sets, daily range): BP systolic 87–149; BP diastolic 42–87
[~2018-09-16] VITALS: Ht 152.4 cm; Wt 52.2 kg
[2018-09-16] MEDS ORDERED: SODIUM CHLORIDE 0.9% INJ 10 ML SYR IV PRN (15:30)
[2018-09-16] MEDS ORDERED: SODIUM CHLORIDE 0.9% INJ 10 ML SYR IV SCH (18:00)
== END 2018-09-16 15:45 | disposition home or self-care (01) ==
LOC: M INFU 08:41
PROVIDERS: ATTEND Internal Medicine Medical Oncology
DX: C92.00 Acute myeloblastic leukemia, not having achieved remission (principal); Z88.8 Allergy status to other drugs, medicaments and biological substances; Z88.5 Allergy status to narcotic agent
CPT/HCPCS: 36430; 36591; 86850; 86900; 86901; 86920; P9036; P9040

== ENCOUNTER 2018-09-19 08:41 | Outpatient (CLI) | payer MEDICARE, MEDICAID ==
[~2018-09-19] VITALS: Ht 152.4 cm; Wt 52.2 kg
[2018-09-19] VITALS (8 sets, daily range): BP systolic 109–122; BP diastolic 55–64
[~2018-09-19 08:41] MED LIST changes: +ACETAMINOPHEN TAB 650MG DOSE (2X325MG) PO ONE; -ACETAMINOPHEN TAB 650MG DOSE (2X325MG) PO SCH; +SODIUM CHLORIDE 0.9% INJ 10 ML SYR IV PRN; -diphenhydrAMINE 25 MG CAP PO SCH; +diphenhydrAMINE 50 MG CAP PO ONE
[2018-09-19] MEDS ORDERED: SODIUM CHLORIDE 0.9% INJ 10 ML SYR IV SCH (18:00)
== END 2018-09-19 15:00 | disposition home or self-care (01) ==
LOC: M INFU 08:41
PROVIDERS: ATTEND Internal Medicine Medical Oncology
DX: C92.00 Acute myeloblastic leukemia, not having achieved remission (principal); Z88.8 Allergy status to other drugs, medicaments and biological substances; Z88.5 Allergy status to narcotic agent
CPT/HCPCS: 36430; 86850; 86900; 86901; 86920; P9036; P9040

== ENCOUNTER 2018-09-23 08:42 | Outpatient (CLI) | payer MEDICARE, MEDICAID ==
[~2018-09-23] VITALS: Ht 152.4 cm; Wt 52.2 kg
[~2018-09-23 08:42] MED LIST changes: -ACETAMINOPHEN TAB 650MG DOSE (2X325MG) PO ONE; -SODIUM CHLORIDE 0.9% INJ 10 ML SYR IV PRN; -diphenhydrAMINE 50 MG CAP PO ONE
[2018-09-23 08:45] VITALS: BP 115/57
[2018-09-23] MEDS ORDERED: diphenhydrAMINE 50 MG CAP PO ONE (09:00)
[2018-09-23] MEDS ORDERED: ACETAMINOPHEN TAB 650MG DOSE (2X325MG) PO ONE (09:00)
[2018-09-23] MEDS ORDERED: SODIUM CHLORIDE 0.9% INJ 10 ML SYR IV PRN (09:15)
[2018-09-23 09:30] VITALS: BP 99/52
[2018-09-23] MEDS ORDERED: SODIUM CHLORIDE 0.9% INJ 10 ML SYR IV SCH (18:00)
== END 2018-09-23 11:30 | disposition home or self-care (01) ==
LOC: M INFU 08:42
PROVIDERS: ATTEND Nurse Practitioner Family
DX: C92.00 Acute myeloblastic leukemia, not having achieved remission (principal); Z88.0 Allergy status to penicillin; Z88.5 Allergy status to narcotic agent; Z88.8 Allergy status to other drugs, medicaments and biological substances
CPT/HCPCS: 36430; P9036

== ENCOUNTER 2018-09-26 08:38 | Outpatient (CLI) | payer MEDICARE, MEDICAID ==
[~2018-09-26] VITALS: Ht 152.4 cm; Wt 52.2 kg
[2018-09-26 08:45] VITALS: BP 114/56
[2018-09-26] MEDS ORDERED: diphenhydrAMINE 50 MG CAP PO ONE (09:00)
[2018-09-26] MEDS ORDERED: SODIUM CHLORIDE 0.9% INJ 10 ML SYR IV PRN (09:00)
[2018-09-26] MEDS: ACETAMINOPHEN TAB 650MG DOSE (2X325MG) PO SCH ×2 (09:28→09:29)
[2018-09-26 09:30] VITALS: BP 104/51
[2018-09-26 13:04] VITALS: BP 111/66
[2018-09-26] MEDS ORDERED: SODIUM CHLORIDE 0.9% INJ 10 ML SYR IV SCH (18:00)
== END 2018-09-26 13:00 | disposition home or self-care (01) ==
LOC: M INFU 08:38
PROVIDERS: ATTEND Internal Medicine Medical Oncology
DX: C92.00 Acute myeloblastic leukemia, not having achieved remission (principal); Z88.5 Allergy status to narcotic agent; Z88.8 Allergy status to other drugs, medicaments and biological substances
CPT/HCPCS: 36430; 86850; 86900; 86901; 86920; P9036; P9040

== ENCOUNTER 2018-09-29 10:50 | Inpatient (IN) | payer MEDICARE, MEDICAID ==
[~2018-09-29] VITALS: Ht 162.6 cm; Wt 50.6 kg
[2018-09-29] MEDS ORDERED: SODIUM CHLORIDE 0.9% INJ 10 ML SYR IV PRN (11:30)
[2018-09-29 11:49] LABS: HEMATOCRIT 20.9 % (36.0-47.0); MEAN CORPUSCULAR HEMOGLOBIN 29.8 pg (27.0-33.0); MEAN CORPUSCULAR HGB CONC 32.5 g/dl (32.0-36.5); MEAN CORPUSCULAR VOLUME 91.7 fl (80.0-96.0); RED BLOOD COUNT 2.28 10^6/uL (4.00-5.40); WHITE BLOOD COUNT 15.9 10^3/uL (4.0-10.0)
[2018-09-29 12:05] LABS: BLOOD UREA NITROGEN 23 MG/DL (7-18); CALCIUM LEVEL 8.2 MG/DL (8.8-10.2); CARBON DIOXIDE LEVEL 27 MEQ/L (21-32); CHLORIDE LEVEL 105 MEQ/L (98-107); CREATININE FOR GFR 0.37 MG/DL (0.55-1.30); GLOMERULAR FILTRATION RATE > 60.0 (>39); GLUCOSE, FASTING 78 MG/DL (70-100); SODIUM LEVEL 138 MEQ/L (136-145)
[2018-09-29 12:52] LABS: HEMOGLOBIN 6.8 g/dl (12.0-15.5)
[2018-09-29 12:54] LABS: PLATELET COUNT, AUTOMATED 4 10^3/uL (150-450)
[2018-09-29] MEDS ORDERED: ACET500T15 PO (13:13)
--- NOTE | 2018-09-29 14:28 | HPEPDOC ---
General Date of Admission Attending Physician: MELVINA VELÁSQUEZ MD Chief Complaint The patient is a 77-year-old female admitted with a reason for visit of Urinary Problem. Source: Patient, Family Exam Limitations: No limitations Timing/Duration: Day(s) History of Present Illness Patient is a 77-year-old female, past medical history significant for AML, hypertension, seizure disorder, presenting to the hospital on account of gross hematuria noted over the weekend and also blood in her stool. Patient usually is transfused platelets and packed red blood cells weekly and last treatment was Saturday when she was transfused one bag of platelets and 1 unit red blood cells. She is also usually monitored Mondays and every week. On presentation Hgb was 6.8 and platelet count was 4. Patient denied other symptoms. Denies chest pain, SOB, weakness, dizziness, palpitations. Locally she is followed for management of her AML by Dr Braden Home Medications Scheduled Carbamazepine (Carbamazepine ER) 400 Mg Tab, 400 MG PO BID, (Reported) Cholecalciferol (Vitamin D3) (Vitamin D3) 1,000 Unit Tab, 1,000 UNIT PO DAILY, (Reported) Scheduled PRN Acetaminophen (Acetaminophen) 500 Mg Tablet, 500 MG PO Q4H PRN for PAIN, (Reported) Allergies Coded Allergies: butorphanol (Verified Allergy, Severe, shortness of breath, 08/14/18) fentanyl (Verified Allergy, Severe, shortness of breath, 08/14/18) hydrocodone (Verified Allergy, Severe, shortness of breath, 08/14/18) meperidine (Verified Allergy, Severe, shortness of breath, 08/14/18) morphine (Verified Allergy, Severe, shortness of breath, 08/14/18) hydrochlorothiazide (Verified Adverse Reaction, Intermediate, possible diplopia, 08/14/18) RADHA Inhibitors (Verified Adverse Reaction, Mild, cough, 08/14/18) opium (anthroposophic) (Verified Adverse Reaction, Unknown, 08/14/18) Past Medical History Medical History AML Hypertension Valvular heart disease Kidney sounds Depression Seizure disorder Surgical History Aortic valve replacement ORIF-right wrist Lithotripsy Family History Significant Family History: No pertinent family hx Social History * Smoker: Denies Denies tobacco, rare alcohol intake , polysubstance abuse A-FIB/CHADSVASC A-FIB History Current/History of A-Fib/PAF?: No Current Oral Anticoagulant The: No Treatment Reason Anticoagulant not given: Current bleeding Review of Systems Other systems A 10 point pertinent review of systems is completed, negative except as stated in the history of presenting illness Physical Examination Other physical findings GENERAL: NAD SKIN : Warm, dry intact , petechiae present to bilateral lower extremities HEENT: Atraumatic, normocephalic, PERRL, moist mucous membrane CV: Regular rate and rhythm, S1S2, no JVD, no edema, distal pulses + and palpable RESP: CTAB, no accessory muscle use noted ABDOMEN: BS+ non distended non tender MS: no joint deformities NEURO: Alert and oriented x 3, CN2-12 grossly intact PSYCH: no anxiety or agitation, appropriate mood and affect. Vital Signs Vital Signs Date Time Temp Pulse Resp B/P (MAP) Pulse Ox O2 Delivery O2 Flow Rate FiO2 09/29/18 11:09 09/29/18 10:50 98.0 99 18 97 Room Air Laboratory Data Labs 24H Laboratory Tests 2 09/29/18 11:31: Nucleated Red Blood Cells % (auto) 3.3H, Immature Platelet Fraction 16.9H, Anion Gap 6L, Glomerular Filtration Rate > 60.0, Blood Urea Nitrogen 23H, Creatinine 0.37L, Sodium Level 138, Potassium Level 4.0, Chloride Level 105, Carbon Dioxide Level 27, Calcium Level 8.2L CBC/BMP Laboratory Tests 09/29/18 11:31 Red Blood Count 2.28 L, Mean Corpuscular Volume 91.7, Mean Corpuscular Hemoglobin 29.8, Mean Corpuscular Hemoglobin Concent 32.5, Red Cell Distribution Width 16.3 H, Calcium Level 8.2 L Assessment/Plan Acute Myeloid Leukemia - presenting with hgb of 6.8 and Plt of 4 -type, cross and transfuse 2 units PRBC and 2 units Plt -monitor levels post transfusion for response to therapy Critical Thrombocytopenia -transfuse platelets -watch for signs and symptoms of bleeding Seizure Disorder -continue tegretol -seizure precautions DVT prophylaxis _TEDs GI bleed -due to thrombocytopenia -proton pump inhibitor -transfuse platelets Advance Care Planning -code status is DNR Plan / VTE VTE Prophylaxis Ordered?: No VTE Exclusion Pharmacological: Thrombocytopenia MAGAN LAZARO September 29, 2018 14:28
[2018-09-29 16:00] VITALS: BP 112/57
[2018-09-29] MEDS: carBAMazepine XR 200 MG TAB PO SCH (21:38)
[2018-09-29 22:00] VITALS: BP 106/56
[2018-09-30] MEDS: SODIUM CHLORIDE 0.9% INJ 10 ML SYR IV SCH ×2 (05:17→16:44)
[2018-09-30 06:00] VITALS: BP 122/63
[2018-09-30 06:07] LABS: HEMOGLOBIN 8.4 g/dl (12.0-15.5); MEAN CORPUSCULAR HEMOGLOBIN 29.6 pg (27.0-33.0); MEAN CORPUSCULAR HGB CONC 33.6 g/dl (32.0-36.5); RED BLOOD COUNT 2.84 10^6/uL (4.00-5.40); WHITE BLOOD COUNT 17.2 10^3/uL (4.0-10.0)
[2018-09-30 06:11] LABS: PLATELET COUNT, AUTOMATED 20 10^3/uL (150-450)
[2018-09-30] MEDS: VITAMIN D 1,000 INTERNATIONAL UNITS TABLET PO SCH (08:09)
[2018-09-30] MEDS: carBAMazepine XR 200 MG TAB PO SCH ×2 (08:09→20:49)
[2018-09-30] MEDS: ACETAMINOPHEN 500 MG TAB PO PRN ×2 (12:07→20:49)
[2018-09-30 12:15] VITALS: BP 156/71
[2018-09-30 14:00] VITALS: BP 144/67
--- NOTE | 2018-09-30 14:53 | REP ---
CT of the abdomen and pelvis without IV and oral contrast: Comparison is 05/26/2018, non. Studies performed for right lower quadrant pain. The visualized lower lung willis demonstrate small bilateral pleural effusions, not significantly changed. There is mild atelectasis in the lung lower lobes bilaterally, decreased from the prior study. The unenhanced hepatic parenchyma is of increased density compared to the spleen. This is nonspecific but could represent hemochromatosis. Correlation with other clinical information is recommended. There is a 16 mm focal hypodensity posteriorly in the dome of the liver. On the comparison study with IV contrast and appears to be enhancement at the periphery of this lesion. This is suggestive of hemangioma, however, I would recommend MRI follow-up for more shunts. The intrahepatic biliary ducts are diffusely dilated as an interval change. There are several tiny calculi layering along the dependent wall of the gallbladder. The gallbladder is distended. There is no pericholecystic fluid. The common biliary duct is not optimally demonstrated. The There is no ascites. Consider MRI cholangiopancreatography for further evaluation. The pancreas and spleen are unchanged . Splenic calcifications, likely granulomas are again identified. The adrenals are unremarkable. I suspect that there is now right hydronephrosis and right hydroureter to the mid pelvis as interval changes. Consider follow-up ultrasound for confirmation. Additionally, consider a CT urogram for further evaluation. There is focal increased density at the lower pole right kidney, possibly a hyperdense cyst as an interval change. There is mild right renal perinephric stranding as an interval change. The left kidney is unchanged. The abdominal aorta is unchanged. There is no bowel distension or obstruction. Pelvis: The uterus is retroverted as previously. There are numerous myometrial calcifications compatible with multiple small degenerating fibroids. This is unchanged. There are no adnexal masses or cysts. The pelvic bowel loops are unremarkable. Impression: Intrahepatic biliary duct dilatation as an interval change. Gallbladder distension as an interval change. Layering tiny gallbladder calculi. The common biliary duct is suboptimally demonstrated. Consider MRI cholangiopancreatography for further evaluation. Right hydronephrosis as an interval change. Consider ultrasound for confirmation. Additionally, consider CT urogram for further evaluation. I suspect the right ureter is dilated to the mid pelvis. Small focal perinephric stranding at the lateral right kidney. Hyperdense right renal lower pole cyst. Small bilateral pleural effusions, unchanged. Known aortic valve replacement. Electronically Signed by Omar Rios MD 09/30/2018 02:45 P
[2018-09-30] MEDS ORDERED: MORPHINE 4 MG/ML 1ML VIAL/SYRINGE (J2270) IV PRN (16:00)
[2018-09-30] MEDS ORDERED: ONDANSETRON 4MG/2ML VIAL (J2405) IV PRN (16:45)
--- NOTE | 2018-09-30 19:57 | IPNPDOC ---
Date Seen The patient was seen on 09/30/18. Progress Note SUBJECTIVE: Patient initially reported feeling well this morning and denying any complaints. However, patient developed nausea and vomiting later in the afternoon along with right lower quadrant pain. CT scan performed with multiple nonspecific findings including dilated intrahepatic duct with gallbladder distention and calculi, right hydronephrosis and small focal perinephric stranding. To follow up with abdominal ultrasound possible MRCP. OBJECTIVE PHYSICAL EXAMINATION: VITAL SIGNS: Please see below. General: Mild distress, Alert Eyes: Normal sclera, EOMI, ANDREA HENT: Atraumatic, neck supple, moist mucous membranes Cardiovascular: Normal rate, normal rhythm. Pulmonary: Clear to auscultation b/l, no wheezing GI: Soft, nondistended, mild tenderness of RLQ on palpation. Skin: Warm and dry Neuro: CN grossly intact. No focal deficits. Strengths equal b/l. Psych: oriented x 3 LABORATORY DATA, IMAGING STUDIES, MICROBIOLOGY: Please see below. DVT prophylaxis ordered?: yes CT Abdomen- mpression: Intrahepatic biliary duct dilatation as an interval change. Gallbladder distension as an interval change. Layering tiny gallbladder calculi. The common biliary duct is suboptimally demonstrated. Consider MRI cholangiopancreatography for further evaluation. Right hydronephrosis as an interval change. Consider ultrasound for confirmation. Additionally, consider CT urogram for further evaluation. I suspect the right ureter is dilated to the mid pelvis. Small focal perinephric stranding at the lateral right kidney. Hyperdense right renal lower pole cyst. Small bilateral pleural effusions, unchanged. Known aortic valve replacement. ASSESSMENT AND PLAN: 1. 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 - s/p 2 units pRBC and Platelets. Platelet 20 this AM. - Patient follows with Dr. Razo and normally transfuse 2x/weekly when hct <27 and Platelets <5. - Will discuss with Dr. Razo regarding plans of care. 2. Hematuria/Rectal bleed - Likely 2/2 severe thrombocytopenia. - Rectal bleeding had stopped but hematuria still present. - c/w monitor and transfuse as needed. - c/w PPI 3. Abdominal Pain - nonspecific. CT scan as above with multiple findings including dilated intrahepatic ducts. - Abdominal US ordered to evaluate kidneys and GB. - hx of bladder cancer s/p surgery. - Consider MRCP and GI evaluation. - Pain control. Zofran for nausea. 4. Seizure disorder - c/w home meds. Code status: DNR A-FIB/CHADSVASC A-FIB History Current/History of A-Fib/PAF?: No VS, I&O, 24H, Fishbone Vital Signs/I&O Vital Signs Date Time Temp Pulse Resp B/P (MAP) Pulse Ox O2 Delivery O2 Flow Rate FiO2 09/30/18 14:00 97.7 76 18 144/67 (92) 97 09/29/18 10:50 Room Air I&O- Last 24 Hours up to 6 AM 09/30/18 06:00 Intake Total 1888 ml Output Total 1100 ml Balance 788 ml Laboratory Data 24H LABS Laboratory Tests 2 09/30/18 05:30: Nucleated Red Blood Cells % (auto) 3.5H CBC/BMP Laboratory Tests 09/30/18 05:30 Red Blood Count 2.84 L, Mean Corpuscular Volume 88.0, Mean Corpuscular Hemoglobin 29.6, Mean Corpuscular Hemoglobin Concent 33.6, Red Cell Distribution Width 14.6 H WESTON COLLADO MD September 30, 2018 19:57
[2018-09-30 22:00] VITALS: BP 155/66
[2018-10-01] MEDS: SODIUM CHLORIDE 0.9% INJ 10 ML SYR IV SCH ×2 (05:28→18:00)
[2018-10-01 06:00] VITALS: BP 112/56
[2018-10-01 06:44] LABS: HEMATOCRIT 24.3 % (36.0-47.0); HEMOGLOBIN 8.2 g/dl (12.0-15.5); MEAN CORPUSCULAR HEMOGLOBIN 30.5 pg (27.0-33.0); MEAN CORPUSCULAR HGB CONC 33.7 g/dl (32.0-36.5); MEAN CORPUSCULAR VOLUME 90.3 fl (80.0-96.0); RED BLOOD COUNT 2.69 10^6/uL (4.00-5.40); WHITE BLOOD COUNT 18.5 10^3/uL (4.0-10.0)
[2018-10-01 06:47] LABS: PLATELET COUNT, AUTOMATED 7 10^3/uL (150-450)
--- NOTE | 2018-10-01 06:57 | REP ---
Clinical: Right upper quadrant and bilateral flank pain. Technique: Real time magallanes scale and color evaluation using curved array transducer. Findings: Liver and pancreas are normal in contour, size, echogenicity without focal hepatic or pancreatic lesion identified. The spleen is upper limits of normal in size and demonstrates multiple parenchymal calcifications suggesting prior granulomatous disease. The gallbladder demonstrates heterogeneous wall thickening to 7.5 mm with trace pericholecystic fluid and no obvious gallstones and findings require correlation to exclude acalculous cholecystitis and biliary colic. No biliary ductal dilatation is appreciated and the common bile duct measures 3.3 mm diameter. The bilateral kidneys demonstrate cortical thinning and increased central sinus fat consistent with chronic renal disease, but no evidence for hydronephrosis. Right kidney measures 12.4 x 4.5 x 4.0 cm. Left kidney measures 15.9 x 5.9 x 6.7 cm. Abdominal aorta without aneurysm and measures 2.8 cm maximal diameter. No ascites. Impression: 1. Distended gallbladder with heterogeneous wall thickening and trace pericholecystic fluid, but no gallstones. Findings are nonspecific and differential diagnosis includes biliary colic as well as acalculous cholecystitis. 2. Chronic medical renal disease without hydronephrosis. Electronically Signed by Marcelino Yu MD 10/01/2018 06:49 A
[2018-10-01] MEDS: carBAMazepine XR 200 MG TAB PO SCH ×2 (08:12→21:03)
[2018-10-01] MEDS: VITAMIN D 1,000 INTERNATIONAL UNITS TABLET PO SCH (08:12)
[2018-10-01 08:27] LABS: ALBUMIN 2.5 GM/DL (3.2-5.2); ALT/SGPT 41 U/L (12-78); BILIRUBIN,DIRECT 0.1 MG/DL (0.0-0.2); BILIRUBIN,TOTAL 0.4 MG/DL (0.2-1.0); BLOOD UREA NITROGEN 19 MG/DL (7-18); CALCIUM LEVEL 7.7 MG/DL (8.8-10.2); CARBON DIOXIDE LEVEL 29 MEQ/L (21-32); CHLORIDE LEVEL 108 MEQ/L (98-107); CREATININE FOR GFR 0.37 MG/DL (0.55-1.30); GLOMERULAR FILTRATION RATE > 60.0 (>39); GLUCOSE, FASTING 81 MG/DL (70-100); SODIUM LEVEL 142 MEQ/L (136-145); TOTAL PROTEIN 4.6 GM/DL (6.4-8.2)
[2018-10-01] MEDS: PIPERACILLIN/TAZOBACTAM SOD 4.5 GM in D5W MINI-BAG PLUS 50 ML IV SCH ×3 (09:44→21:03)
--- NOTE | 2018-10-01 10:15 | IPNPDOC ---
Date Seen The patient was seen on 10/01/18. Progress Note SUBJECTIVE: Patient reported worsening right-sided abdominal pain yesterday along with nausea and has had CT abdomen as well as abdominal ultrasound completed. Gallbladder thickening were noted and suspicious for biliary colic versus acalculous cholecystitis. MRCP did order for evaluation of biliary ducts as dilated intrahepatic ducts were noted on CT scan. Patient reported feeling better today overall and looks more comfortable. Abdomen still slightly sore but does not bother her as much. Afebrile overnight. Still has persistent hematuria but hematochezia resportedly resolved. Platelets trended down to 7 from 20 yesterday. OBJECTIVE PHYSICAL EXAMINATION: VITAL SIGNS: Please see below. General: No acute distress, Alert Eyes: Normal sclera, EOMI, ANDREA HENT: Atraumatic, neck supple, moist mucous membranes Cardiovascular: Normal rate, normal rhythm. Pulmonary: Clear to auscultation b/l, no wheezing GI: Soft, nondistended, mild tenderness of R quadrants. Skin: Warm and dry Neuro: CN grossly intact. No focal deficits. Strengths equal b/l. Psych: oriented x 3 LABORATORY DATA, IMAGING STUDIES, MICROBIOLOGY: Please see below. DVT prophylaxis ordered?: yes CT Abdomen- mpression: Intrahepatic biliary duct dilatation as an interval change. Gallbladder distension as an interval change. Layering tiny gallbladder calculi. The common biliary duct is suboptimally demonstrated. Consider MRI cholangiopancreatography for further evaluation. Right hydronephrosis as an interval change. Consider ultrasound for confirmation. Additionally, consider CT urogram for further evaluation. I suspect the right ureter is dilated to the mid pelvis. Small focal perinephric stranding at the lateral right kidney. Hyperdense right renal lower pole cyst. Small bilateral pleural effusions, unchanged. Known aortic valve replacement. Abdominal US- Impression: 1. Distended gallbladder with heterogeneous wall thickening and trace pericholecystic fluid, but no gallstones. Findings are nonspecific and differential diagnosis includes biliary colic as well as acalculous cholecystitis. 2. Chronic medical renal disease without hydronephrosis. ASSESSMENT AND PLAN: 1. 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 - s/p 2 units pRBC and Platelets. Platelets 4->20->7 this morning. - Patient follows with Dr. Razo and normally transfuse 2x/weekly when hct <27 and Platelets <5. - Discussed with Dr. Razo, aware of patient status. Will continue to touch base. - Will continue transfusion for now, if patient requires increasing frequency of transfusions from prior, may need to discuss with family regarding goals of care. 2. Hematuria/Rectal bleed - Likely 2/2 severe thrombocytopenia. - Rectal bleeding had stopped but hematuria still present. - c/w monitor and transfuse as needed. - c/w PPI 3. Abdominal Pain - CT scan as above with multiple findings including dilated intrahepatic ducts as well as dilated GB. - Abdominal US showed distended GB differential biliary colic vs. acalculous cholecystitis. - hx of bladder cancer s/p surgery. - Pain improving but WBC trended up. Blood cultures obtained and started on IV Zosyn. - Bilirubin WNL. elevated ALP, AST slightly elevated at 74. - f/u MCRP. GI consult placed. - Pain control. Zofran for nausea. 4. Seizure disorder - c/w home meds. Code status: DNR A-FIB/CHADSVASC A-FIB History Current/History of A-Fib/PAF?: No VS, I&O, 24H, [facility] Vital Signs/I&O Vital Signs Date Time Temp Pulse Resp B/P (MAP) Pulse Ox O2 Delivery O2 Flow Rate FiO2 10/01/18 06:00 97.6 74 18 112/56 (74) 96 09/29/18 10:50 Room Air I&O- Last 24 Hours up to 6 AM 10/01/18 06:00 Intake Total 538 ml Output Total 1600 ml Balance -1062 ml Laboratory Data 24H LABS Laboratory Tests 2 10/01/18 06:18: Nucleated Red Blood Cells % (auto) 4.4H, Immature Platelet Fraction 8.9, Anion Gap 5L, Glomerular Filtration Rate > 60.0, Blood Urea Nitrogen 19H, Creatinine 0.37L, Sodium Level 142, Potassium Level 4.0, Chloride Level 108H, Carbon Dioxide Level 29, Calcium Level 7.7L, Aspartate Amino Transf (AST/SGOT) 74H, Alanine Aminotransferase (ALT/SGPT) 41, Alkaline Phosphatase 139H, Total Bi lirubin 0.4, Direct Bilirubin 0.1, Total Protein 4.6L, Albumin 2.5L, Albumin/Globulin Ratio 1.19 CBC/BMP Laboratory Tests 10/01/18 06:18 Red Blood Count 2.69 L, Mean Corpuscular Volume 90.3, Mean Corpuscular Hemoglobin 30.5, Mean Corpuscular Hemoglobin Concent 33.7, Red Cell Distribution Width 15.4 H, Calcium Level 7.7 L, Aspartate Amino Transf (AST/SGOT) 74 H, Alanine Aminotransferase (ALT/SGPT) 41, Alkaline Phosphatase 139 H, Total Bilirubin 0.4, Direct Bilirubin 0.1, Total Protein 4.6 L, Albumin 2.5 L Microbiology Microbiology 10/01/18 Blood Culture, Received Pending 10/01/18 Blood Culture, Received Pending WESTON COLLADO MD October 01, 2018 10:15
--- NOTE | 2018-10-01 10:43 | REP ---
MRCP: MRI without contrast: History: Abdomen pain with dilated intrahepatic ducts. Evaluate CBD. No comparison sonography available. Comparison CT study September 30, 2018. Technique: Axial and coronal T2-weighted scans were obtained. MRCP acquisition is acquired and maximal intensity projection images are generated. MRCP findings: There is no evidence of intrahepatic biliary ductal dilation. The appearance on CT is felt to have been due to some diffuse increase in density of the liver which can be seen and hemochromatosis. This was a noncontrast CT study. The common bile duct is normal as well measuring 0.5 cm in greatest diameter. No evidence of choledocholithiasis or stricture. No mass lesion is apparent. No filling defect is seen within the gallbladder. There are multiple parapelvic cysts in the kidneys. The right hydronephrosis seen on yesterday's CT study is improved. Impression: No evidence of biliary ductal dilation. Electronically Signed by Carmine Rabago MD 10/01/2018 01:40 P
[2018-10-01 14:00] VITALS: BP 118/58
--- NOTE | 2018-10-01 19:50 | SMCUROLCON ---
Urology Consultation General Date of Consultation 10/01/18 Reason For Consultation This patient is seen for Acute Myeloid Leukemia With Failed Remission. History of Present Illness This is a 77 y/o w/ PMH significant for AML, kidney stones, cataracts, and seizures, who presented to the hospital yesterday w/ hematuria, bloody stools, and weakness. On admission she was found to have a platelet count of 4 and a Hb of 6.8. She was given transfused w/ platelets and 2u PRBC. Her Hb went up to 8.2 and her platelets went up to 20 and then came down to 7 on recheck. She notes that her hematuria started Saturday and that she never had it before. She has a history of kidney stones but denies any flank or abd pain. She denies dysuria. She had a noncontrast CT A/P done on admission that was notable for mild to moderate right hydroureteronephrosis to the mid ureter w/ no obvious cause of obstruction. On f/u US and MRI there is no evidence of hydronephrosis. She has never smoked before. She denies f/c/ns. Past Medical History Medical History AML kidney stones cataracts seizures Surgical Hstory Lithotripsy Aortic Valve Replacement Cataract Surgery Medications Current Medications Current Medications Acetaminophen (Tylenol Tab) 500 mg Q4H PRN PO PAIN Last administered on 09/30/18at 20:49; Start 09/29/18 at 14:30 Carbamazepine (TEGretol XR) 400 mg BID PO Last administered on 10/01/18at 08:12; Start 09/29/18 at 21:00 Heparin Sodium (Heparin (Flush)) 200 units ASDIRECTED PRN IV SEE LABEL COMMENTS; Start 09/29/18 at 11:30 Heparin Sodium (Heparin (Flush)) 200 units PICC IV Last administered on 10/01/18at 05:27; Start 09/30/18 at 06:00 Home Med (Med Rec Complete!) ASDIRECTED XX ; Start 09/29/18 at 13:15; Stop 09/29/18 at 13:16; Status DC Morphine Sulfate (Morphine Sulfate Inj) 2 mg Q2HP PRN IV BREAKTHROUGH PAIN; Start 09/30/18 at 16:00; Stop 09/30/18 at 16:13; Status DC Ondansetron HCl (ZOFRAN INJection) 4 mg Q6HP PRN IV NAUSEA OR VOMITING Last administered on 09/30/18at 16:43; Start 09/30/18 at 16:45 Piperacillin Sod/ Tazobactam Sod 4.5 gm/Dextrose 50 ml @ 50 mls/hr Q6H IV Last administered on 10/01/18at 14:33; Start 10/01/18 at 09:00 Sodium Chloride (Saline Lock Flush) 10 ml ASDIRECTED PRN IV SEE LABEL COMMENTS; Start 09/29/18 at 11:30 Sodium Chloride (Saline Lock Flush) 10 ml PICC IV Last administered on 10/01/18at 05:28; Start 09/30/18 at 06:00 Vitamin D (Vitamin D) 1,000 units DAILY PO Last administered on 10/01/18at 08:12; Start 09/30/18 at 09:00 Allergies Allergies: Coded Allergies: butorphanol (Verified Allergy, Severe, shortness of breath, 08/14/18) fentanyl (Verified Allergy, Severe, shortness of breath, 08/14/18) hydrocodone (Verified Allergy, Severe, shortness of breath, 08/14/18) meperidine (Verified Allergy, Severe, shortness of breath, 08/14/18) morphine (Verified Allergy, Severe, shortness of breath, 08/14/18) hydrochlorothiazide (Verified Adverse Reaction, Intermediate, possible diplopia, 08/14/18) RADHA Inhibitors (Verified Adverse Reaction, Mild, cough, 08/14/18) opium (anthroposophic) (Verified Adverse Reaction, Unknown, 08/14/18) Review of Systems General: Reports: Normal Appetite; Denies: Fatigue, Malaise Constitutional: Denies: Fever, Chills, Sweats, Weakness, Malaise Pulmonary: Denies: Dyspnea, Cough Cardiovascular: Denies Chest Pain, Denies Palpitations Gastrointestinal: Denies: Nausea, Vomiting, Abdominal Pain Genitourinary: Reports: Hematuria Musculoskeletal: Denies: Neck Pain, Back Pain Psych: Reports: Mood Normal; Denies: Anxiety, Depression Physical Examination General Exam: Alert, No Acute Distress Chest Exam: Clear to auscultation Heart Exam: Rate Normal, Regular Rhythm Abdomen Exam: BS Hypoactive, Soft; No: Tenderness Skin Exam: Nl turgor and temperature Neuro Exam: Normal Speech Psych Exam: Mental status NL, Mood NL Vital Signs/I&O Vital Signs Date Time Temp Pulse Resp B/P (MAP) Pulse Ox O2 Delivery O2 Flow Rate FiO2 10/01/18 14:00 98.0 89 20 118/58 (78) 97 09/29/18 10:50 Room Air I&O- Last 24 Hours up to 6 AM 10/01/18 06:00 Intake Total 538 ml Output Total 1600 ml Balance -1062 ml Laboratory Data 24H Labs Laboratory Tests 2 10/01/18 06:18: Nucleated Red Blood Cells % (auto) 4.4H, Immature Platelet Fraction 8.9, Anion Gap 5L, Glomerular Filtration Rate > 60.0, Blood Urea Nitrogen 19H, Creatinine 0.37L, Sodium Level 142, Potassium Level 4.0, Chloride Level 108H, Carbon Dioxide Level 29, Calcium Level 7.7L, Aspartate Amino Transf (AST/SGOT) 74H, Alanine Aminotransferase (ALT/SGPT) 41, Alkaline Phosphatase 139H, Total Bilirubin 0.4, Direct Bilirubin 0.1, Total Protein 4.6L, Albumin 2.5L, Albumin /Globulin Ratio 1.19 CBC/BMP Laboratory Tests 10/01/18 06:18 Red Blood Count 2.69 L, Mean Corpuscular Volume 90.3, Mean Corpuscular Hemoglobin 30.5, Mean Corpuscular Hemoglobin Concent 33.7, Red Cell Distribution Width 15.4 H, Calcium Level 7.7 L, Aspartate Amino Transf (AST/SGOT) 74 H, Alanine Aminotransferase (ALT/SGPT) 41, Alkaline Phosphatase 139 H, Total Bilirubin 0.4, Direct Bilirubin 0.1, Total Protein 4.6 L, Albumin 2.5 L Microbiology Microbiology 10/01/18 Blood Culture, Received Pending 10/01/18 Blood Culture, Received Pending Assessment This is a 77 y/o F w/ AML and thrombocytopenia, admitted w/ gross hematuria. She is not having any difficulty voiding but per report the hematuria has not improved w/ platelet transfusions. I explained that she will require a cystoscopy at some point, ideally when the hematuria has improved so that we can adequately examine the bladder. If her hematuria does not improve she might need to go to the OR for cystoscopy, clot evacuation, and cauterization of the bleeding source. I explained that this would be done ideally w/ her platelets up to 30 or more. Plan - catheter placement ordered by hospitalist service but patient currently refusing as she has no trouble voiding at this time - if she develops difficulty voiding would recommend placing a 22Fr 3-way and putting her on CBI - hospitalist service to transfuse platelets this evening - transfuse pRBC as needed - send urine for culture - NPO at midnight in case procedure needed tomorrow - will sign patient out to Dr. Feliciano tomorrow to follow SUZAN BRAVO MD October 01, 2018 19:50
[2018-10-01 22:00] VITALS: BP 120/60
[2018-10-02] MEDS: PIPERACILLIN/TAZOBACTAM SOD 4.5 GM in D5W MINI-BAG PLUS 50 ML IV SCH ×4 (03:33→21:08)
--- NOTE | 2018-10-02 05:42 | CR.PDOC ---
General Surgery Consultation Date of Consultation 10/01/18 History and Physical CONSULT REPORT FOR: hospitalist service REASON FOR CONSULTATION: abdominal pain, leukocytosis HISTORY OF PRESENT ILLNESS: Patient is a 77 F with history of AML admitted for complaints of hematuria, hematochezia at home. There were admitted Saturday evening and received blood transfusions. Yesterday, patient was complaining of right-sided abdominal pain as well as nausea. No febrile episodes reported at home are well-healed in the hospital. She had a noncontrast CT of the abdomen and pelvis followed by a right upper quadrant ultrasound. It was also noted that her WBC count has been increasing. On the imaging studies she had some abnormalities related to the gallbladder and it was called to evaluate the patient for possibility of cholecystitis and make recommendations regarding this. On talking to the patient and her family was at the bedside with her, she denies any prior biliary colic episodes or any problems with any food prompting postprandial discomfort pain nausea vomiting or bloating. She has had no previous imaging studies that demonstrated the presence of stones in her gallbladder. She does have prior history of kidney stones. At the time that I saw her patient reports her discomfort has markedly improved as compared to yesterday. She points to a wide area on her right abdomen including the right lower quadrant area where she was hurting yesterday. She was able to tolerate breakfast without any nausea or vomiting. She still has some residual discomfort over the right side of her abdomen as well as her back area. PAST MEDICAL HISTORY: 1. AML - review of our medical oncology notes that this is pretty advanced, end- stage and prior discussions for possible hospice care. Patient has chosen to receive platelet transfusions and blood transfusions regularly 2. Hypertension 3. Valvular heart disease 4. Kidney stones 5. Depression 6. Seizure disorder PAST SURGICAL HISTORY: INCLUDES: 1. Aortic valve replacement 2. ORIF on the right wrist 3. Lithotripsy. ALLERGIES: Please see below. FAMILY HISTORY: Noncontributory HOME MEDICATIONS: Please see below. REVIEW OF SYSTEMS: Patient reports she is about her chronic state of health. She sees blood and platelet transfusions regularly. She denies any fevers or chills. Prior to hospitalization reports good appetite. Denies fevers or chills or any sick contacts. She denies any ongoing chest pains, shortness of breath. Denies any chronic abdominal discomfort. Denies dysuria. She does have a history of nephrolithiasis. bPrior to Diagnosis of AML, she tells me that her urologist was planning to do cystoscopy. PHYSICAL EXAMINATION: VITALS SIGNS: Please see below. GENERAL APPEARANCE: Patient seen laying flat in bed appears comfortable. She is cooperative and pleasant. She is awake alert and oriented. SKIN: Warm and dry. HEENT: [place] palpebral conjunctiva. Lips appear moist no gross facial lesions or deformities. NECK: [Supple, no thyromegaly. No obvious jugular venous distention]. LUNGS: [Clear to auscultation bilaterally. No wheezing appreciated]. HEART: [No chest wall abnormalities. Regular rate and rhythm with no murmurs appreciated]. ABDOMEN: Abdomen is relatively flat, nondistended, soft, she reports mild discomfort on palpation widely in the right side of the abdomen and not centered at the gallbladder fossa. No tenderness over the gallbladder fossa, negative for Rangel sign. She has some tenderness over the right CVA. EXTREMITIES: No gross deformities or edema ANCILLARIES: . LABORATORY DATA: Please see below. IMAGING STUDIES: CT abdomen and pelvis (noncontrast) 09/30 dilated intrahepatic ducts dilated gb without gb wall thickening, maybe sludge in gb cbd? ?right hydronephrosis Abdominal US 09/30 1. Distended gallbladder with heterogeneous wall thickening and trace pericholecystic fluid, but no gallstones. Findings are nonspecific and differential diagnosis includes biliary colic as well as acalculous cholecystitis. 2. Chronic medical renal disease without hydronephrosis IMPRESSION AND PLAN: AML abdominal pain dilated interhepatic ducts - ?obstruction vs cholestasis -LFTs relatively normal. total bilirubin normal, mild elevation of alkaline phosphatase -US shows gb wall thickening and pericholecystic fluid (evolving?) possibly acalculous cholecystitis ?right hydronephrosis I reviewed with him the imaging studies and discussed my clinical impression. Possibly she had biliary colic symptoms yesterday to explain her pain though she had a wide area of discomfort extending from the right upper to the right lower quadrant area as well as right-sided back pain and she continues to have hematuria. Given the prior history of nephrolithiasis, she could possibly be having renal colic symptoms too. She does have imaging studies that on the noncontrast CT shows distended gallbladder without pericholecystic edema and on the ultrasound done several hours after now shows some acute gallbladder wall thickening. There were no stones identified on the ultrasound. On the CT there was some evidence of intrahepatic dilatation though on ultrasound this was not present in the common bile duct is normal sized. She had an MRCP recently done and the results are not available to me at when I saw the patient. Her LFTs this morning were relatively normal save for mild elevation of alkaline phosphatase and AST. She has normal total bilirubin. Given her general state of health as well as findings of possible cholecystitis on ultrasound, recommend treating her as acute cholecystitis with antibiotics. She had also been reporting improvement of her abdominal discomfort and tolerating regular food prior to me seeing her so this could be resolving on its own and would not need any intervention. Of course given her AML, severe throm bocytopenia she is high risk for any surgical or even radiologic intervention. I would follow her course in the hospital with otherwise if she continues to improve, she does not need any further surgical intervention at this point. Vital Signs Vital Signs Date Time Temp Pulse Resp B/P (MAP) Pulse Ox O2 Delivery O2 Flow Rate FiO2 10/01/18 06:00 97.6 74 18 112/56 (74) 96 09/29/18 10:50 Room Air I&Os I&O- Last 24 Hours up to 6 AM 10/01/18 06:00 Intake Total 538 ml Output Total 1600 ml Balance -1062 ml Laboratory Data Labs 24H Laboratory Tests 2 10/01/18 06:18: Nucleated Red Blood Cells % (auto) 4.4H, Immature Platelet Fraction 8.9, Anion Gap 5L, Glomerular Filtration Rate > 60.0, Blood Urea Nitrogen 19H, Creatinine 0.37L, Sodium Level 142, Potassium Level 4.0, Chloride Level 108H, Carbon Dioxide Level 29, Calcium Level 7.7L, Aspartate Amino Transf (AST/SGOT) 74H, Alanine Aminotransferase (ALT/SGPT) 41, Alkaline Phosphatase 139H, Total Bilirubin 0.4, Direct Bilirubin 0.1, Total Protein 4.6L, Albumin 2.5L, [place] min/Globulin Ratio 1.19 CBC/BMP Laboratory Tests 10/01/18 06:18 Red Blood Count 2.69 L, Mean Corpuscular Volume 90.3, Mean Corpuscular Hemoglobin 30.5, Mean Corpuscular Hemoglobin Concent 33.7, Red Cell Distribution Width 15.4 H, Calcium Level 7.7 L, Aspartate Amino Transf (AST/SGOT) 74 H, Alanine Aminotransferase (ALT/SGPT) 41, Alkaline Phosphatase 139 H, Total Bilirubin 0.4, Direct Bilirubin 0.1, Total Protein 4.6 L, Albumin 2.5 L Microbiology Microbiology 10/01/18 Blood Culture, Received Pending 10/01/18 Blood Culture, Received Pending Home Medications Scheduled Carbamazepine (Carbamazepine ER) 400 Mg Tab, 400 MG PO BID, (Reported) Cholecalciferol (Vitamin D3) (Vitamin D3) 1,000 Unit Tab, 1,000 UNIT PO DAILY, (Reported) Scheduled PRN Acetaminophen (Acetaminophen) 500 Mg Tablet, 500 MG PO Q4H PRN for PAIN, (Reported) Allergies Coded Allergies: butorphanol (Verified Allergy, Severe, shortness of breath, 08/14/18) fentanyl (Verified Allergy, Severe, shortness of breath, 08/14/18) hydrocodone (Verified Allergy, Severe, shortness of breath, 08/14/18) meperidine (Verified Allergy, Severe, shortness of breath, 08/14/18) morphine (Verified Allergy, Severe, shortness of breath, 08/14/18) hydrochlorothiazide (Verified Adverse Reaction, Intermediate, possible diplopia, 08/14/18) RADHA Inhibitors (Verified Adverse Reaction, Mild, cough, 08/14/18) opium (anthroposophic) (Verified Adverse Reaction, Unknown, 08/14/18) RUBEN ESPINOZA MD October 01, 2018 09:25
[2018-10-02 06:00] VITALS: BP 119/60
[2018-10-02] MEDS: SODIUM CHLORIDE 0.9% INJ 10 ML SYR IV SCH ×2 (06:00→13:16)
[2018-10-02 06:44] LABS: HEMATOCRIT 21.2 % (36.0-47.0); MEAN CORPUSCULAR HEMOGLOBIN 30.5 pg (27.0-33.0); MEAN CORPUSCULAR HGB CONC 33.5 g/dl (32.0-36.5); RED BLOOD COUNT 2.33 10^6/uL (4.00-5.40); WHITE BLOOD COUNT 21.2 10^3/uL (4.0-10.0)
[2018-10-02 07:07] LABS: ALBUMIN 2.5 GM/DL (3.2-5.2); ALT/SGPT 39 U/L (12-78); BILIRUBIN,TOTAL 0.5 MG/DL (0.2-1.0); BLOOD UREA NITROGEN 18 MG/DL (7-18); CALCIUM LEVEL 7.8 MG/DL (8.8-10.2); CARBON DIOXIDE LEVEL 29 MEQ/L (21-32); CHLORIDE LEVEL 108 MEQ/L (98-107); CREATININE FOR GFR 0.45 MG/DL (0.55-1.30); GLOMERULAR FILTRATION RATE > 60.0 (>39); GLUCOSE, FASTING 82 MG/DL (70-100); POTASSIUM SERUM 3.7 MEQ/L (3.5-5.1); SODIUM LEVEL 142 MEQ/L (136-145); TOTAL PROTEIN 5.1 GM/DL (6.4-8.2)
[2018-10-02 07:20] LABS: PLATELET COUNT, AUTOMATED 25 10^3/uL (150-450)
[2018-10-02 07:25] LABS: HEMOGLOBIN 7.1 g/dl (12.0-15.5)
--- NOTE | 2018-10-02 08:09 | IPNPDOC ---
Subjective General Date/Time Seen The patient was seen on 10/02/18 at 08:07. Subject Chief Complaint/History The patient is a 77-year-old female admitted with a reason for visit of Acute Myeloid Leukemia With Failed Remission. Current Medications Current Medications Current Medications Acetaminophen (Tylenol Tab) 500 mg Q4H PRN PO PAIN Last administered on 20:49; Start 09/29/18 at 14:30 Carbamazepine (TEGretol XR) 400 mg BID PO Last administered on 10/01/18at 21:03; Start 09/29/18 at 21:00 Heparin Sodium (Heparin (Flush)) 200 units ASDIRECTED PRN IV SEE LABEL COMMENTS; Start 09/29/18 at 11:30 Heparin Sodium (Heparin (Flush)) 200 units PICC IV Last administered on 10/01/18at 05:27; Start 09/30/18 at 06:00 Home Med (Med Rec Complete!) ASDIRECTED XX ; Start 09/29/18 at 13:15; Stop 09/29/18 at 13:16; Status DC Morphine Sulfate (Morphine Sulfate Inj) 2 mg Q2HP PRN IV BREAKTHROUGH PAIN; Start 09/30/18 at 16:00; Stop 09/30/18 at 16:13; Status DC Ondansetron HCl (ZOFRAN INJection) 4 mg Q6HP PRN IV NAUSEA OR VOMITING Last administered on 09/30/18at 16:43; Start 09/30/18 at 16:45 Piperacillin Sod/ Tazobactam Sod 4.5 gm/Dextrose 50 ml @ 50 mls/hr Q6H IV Last administered on 10/02/18at 03:33; Start 10/01/18 at 09:00 Sodium Chloride (Saline Lock Flush) 10 ml ASDIRECTED PRN IV SEE LABEL COMMENTS; Start 09/29/18 at 11:30 Sodium Chloride (Saline Lock Flush) 10 ml PICC IV Last administered on 10/01/18at 05:28; Start 09/30/18 at 06:00 Vitamin D (Vitamin D) 1,000 units DAILY PO Last administered on 10/01/18at 08:12; Start 09/30/18 at 09:00 Allergies Coded Allergies: butorphanol (Verified Allergy, Severe, shortness of breath, 08/14/18) fentanyl (Verified Allergy, Severe, shortness of breath, 08/14/18) hydrocodone (Verified Allergy, Severe, shortness of breath, 08/14/18) meperidine (Verified Allergy, Severe, shortness of breath, 08/14/18) morphine (Verified Allergy, Severe, shortness of breath, 08/14/18) hydrochlorothiazide (Verified Adverse Reaction, Intermediate, possible diplopia, 08/14/18) RADHA Inhibitors (Verified Adverse Reaction, Mild, cough, 08/14/18) opium (anthroposophic) (Verified Adverse Reaction, Unknown, 08/14/18) Objective Physical Examination Examination GENERAL APPEARANCE:[Patient seen, laying in bed, awake, alert, and oriented. Comfortable, in no acute distress]. SKIN: [Warm and moist]. HEENT: [Normocephalic, atraumatic. [place] palpebral conjunctiva, anicteric sclerae. Lips and mucosa appear moist]. NECK: [Supple, no thyromegaly. No obvious jugular venous distention]. LUNGS: [Clear to auscultation bilaterally. No wheezing appreciated]. HEART: [No chest wall abnormalities. Regular rate and rhythm with no murmurs appreciated]. ABDOMEN: Abdomen is , soft, . [No hepatosplenomegaly. No umbilical or groin herniations, nondistended. No noticeable rebound or guarding. No grimacing with palpation. No rebound tenderness. No masses appreciated]. EXTREMITIES: [Extremities have no deformities. No edema identified]. Vital Signs Vital Signs Date Time Temp Pulse Resp B/P (MAP) Pulse Ox O2 Delivery O2 Flow Rate FiO2 10/02/18 06:00 98.2 83 18 119/60 (79) 94 09/29/18 10:50 Room Air I&Os I&O- Last 24 Hours up to 6 AM 10/02/18 06:00 Intake Total 817 ml Output Total 1600 ml Balance -783 ml Laboratory Data Labs 24H Laboratory Tests 2 10/02/18 06:11: Nucleated Red Blood Cells % (auto) 3.3H, Anion Gap 5L, Glomerular Filtration Rate > 60.0, Blood Urea Nitrogen 18, Creatinine 0.45L, Sodium Level 142, Potassium Level 3.7, Chloride Level 108H, Carbon Dioxide Level 29, Calcium Level 7.8L, Aspartate Amino Transf (AST/SGOT) 70H, Alanine Aminotransferase (ALT/SGPT) 39, Alkaline Phosphatase 129H, Total Bilirubin 0.5, Total Protein 5.1L, Albumin 2.5L, Albumin/Globulin Ratio 0.96L CBC/BMP Laboratory Tests 10/02/18 06:11 Red Blood Count 2.33 L, Mean Corpuscular Volume 91.0, Mean Corpuscular Hemog lobin 30.5, Mean Corpuscular Hemoglobin Concent 33.5, Red Cell Distribution Width 15.3 H, Calcium Level 7.8 L, Aspartate Amino Transf (AST/SGOT) 70 H, Alanine Aminotransferase (ALT/SGPT) 39, Alkaline Phosphatase 129 H, Total Bilirubin 0.5, Total Protein 5.1 L, Albumin 2.5 L Microbiology Microbiology 10/01/18 Blood Culture, Received Pending 10/01/18 Blood Culture, Received Pending 10/01/18 Urine Culture, Received Pending Impression abdominal pain ?cholecystitis abdominal pain resolved. MRI/MRCP results reviewed with patient - no biliary dilatation or stones found suggest treat as cholecystitis with abx x 7 days advance diet (low fat diet) per primary service (currently npo for possible urology procedure) no surgical intervention required. will sign off Plan / VTE VTE Prophylaxis Ordered?: No VTE Exclusion Pharmacological: Bleeding Risk RUBEN ESPINOZA MD October 02, 2018 08:09
[2018-10-02] MEDS: VITAMIN D 1,000 INTERNATIONAL UNITS TABLET PO SCH (08:37)
[2018-10-02] MEDS: carBAMazepine XR 200 MG TAB PO SCH ×2 (08:37→21:08)
[2018-10-02] MEDS: ACETAMINOPHEN 500 MG TAB PO PRN (10:57)
--- NOTE | 2018-10-02 12:40 | IPNPDOC ---
Date Seen The patient was seen on 10/02/18. Progress Note SUBJECTIVE: Patient reported feeling well this morning. No noticable abdominal discomfort anymore. Hematuria still present when she urinates, had refused a parker catheter yesterday. Seen by urology. Has been NPO this morning for any possible urology intervention. PICC line noted to stopped working overnight. To get replaced by IR. Platelets trended up 7->25 after 2 units platelets. OBJECTIVE PHYSICAL EXAMINATION: VITAL SIGNS: Please see below. General: No acute distress, Alert Eyes: Normal sclera, EOMI, ANDREA HENT: Atraumatic, neck supple, moist mucous membranes Cardiovascular: Normal rate, normal rhythm. Pulmonary: Clear to auscultation b/l, no wheezing GI: Soft, nondistended, nontender Skin: Warm and dry Neuro: CN grossly intact. No focal deficits. Strengths equal b/l. Psych: oriented x 3 LABORATORY DATA, IMAGING STUDIES, MICROBIOLOGY: Please see below. DVT prophylaxis ordered?: yes CT Abdomen- mpression: Intrahepatic biliary duct dilatation as an interval change. Gallbladder distension as an interval change. Layering tiny gallbladder calculi. The common biliary duct is suboptimally demonstrated. Consider MRI cholangiopancreatography for further evaluation. Right hydronephrosis as an interval change. Consider ultrasound for confirmation. Additionally, consider CT urogram for further evaluation. I suspect the right ureter is dilated to the mid pelvis. Small focal perinephric stranding at the lateral right kidney. Hyperdense right renal lower pole cyst. Small bilateral pleural effusions, unchanged. Known aortic valve replacement. Abdominal US- Impression: 1. Distended gallbladder with heterogeneous wall thickening and trace pericholecystic fluid, but no gallstones. Findings are nonspecific and differential diagnosis includes biliary colic as well as acalculous cholecystitis. 2. Chronic medical renal disease without hydronephrosis. ASSESSMENT AND PLAN: 1. 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 - s/p 2 units pRBC and Platelets. Platelets 4->20->7 ->25. - Patient follows with Dr. Razo and normally transfuse 2x/weekly when hct <27 and Platelets <5 per daughter. Normal goal platelets >15 per Heme. - Will continue transfusion for now, if patient requires increasing frequency of transfusions from prior, may need to discuss with family regarding goals of care. 2. Hematuria/Rectal bleed - Likely 2/2 severe thrombocytopenia. - Rectal bleeding had stopped but hematuria still present. - c/w monitor and transfuse as needed. - c/w PPI - Urology following. Patient had refused parker catheter for now. 3. Abdominal Pain - Resolved. - CT scan as above with multiple findings including dilated intrahepatic ducts as well as dilated GB. - Abdominal US showed distended GB differential biliary colic vs. acalculous cholecystitis. - c/w IV Zosyn. Surgery evaluated, will treat as cholecystitis and complete 7 day course of Abx. - Bilirubin WNL. elevated ALP, AST slightly elevated at 74. - MCRP no significant findings. 4. Seizure disorder - c/w home meds. 5. PICC malfunction - For PICC replacement by IR tomorrow, to get platelet transfusions during procedure. Code status: DNR A-FIB/CHADSVASC A-FIB History Current/History of A-Fib/PAF?: No VS, I&O, 24H, Fishbone Vital Signs/I&O Vital Signs Date Time Temp Pulse Resp B/P (MAP) Pulse Ox O2 Delivery O2 Flow Rate FiO2 10/02/18 06:00 98.2 83 18 119/60 (79) 94 09/29/18 10:50 Room Air I&O- Last 24 Hours up to 6 AM 10/02/18 06:00 Intake Total 817 ml Output Total 1600 ml Balance -783 ml Laboratory Data 24H LABS Laboratory Tests 2 10/02/18 06:11: Nucleated Red Blood Cells % (auto) 3.3H, Anion Gap 5L, Glomerular Filtration R ate > 60.0, Blood Urea Nitrogen 18, Creatinine 0.45L, Sodium Level 142, Potassium Level 3.7, Chloride Level 108H, Carbon Dioxide Level 29, Calcium Level 7.8L, Aspartate Amino Transf (AST/SGOT) 70H, Alanine Aminotransferase (ALT/SGPT) 39, Alkaline Phosphatase 129H, Total Bilirubin 0.5, Total Protein 5.1L, Albumin 2.5L, Albumin/Globulin Ratio 0.96L CBC/BMP Laboratory Tests 10/02/18 06:11 Red Blood Count 2.33 L, Mean Corpuscular Volume 91.0, Mean Corpuscular Hemoglobin 30.5, Mean Corpuscular Hemoglobin Concent 33.5, Red Cell Distribution Width 15.3 H, Calcium Level 7.8 L, Aspartate Amino Transf (AST/SGOT) 70 H, Alanine Aminotransferase (ALT/SGPT) 39, Alkaline Phosphatase 129 H, Total Bilirubin 0.5, Total Protein 5.1 L, Albumin 2.5 L Microbiology Microbiology 10/01/18 Blood Culture - Preliminary, Resulted No growth after 24 hours . All specim... 10/01/18 Blood Culture - Preliminary, Resulted No growth after 24 hours . All specim... 10/01/18 Urine Culture, Received Pending WESTON COLLADO MD October 02, 2018 12:40
[2018-10-02 14:00] VITALS: BP 122/57
--- NOTE | 2018-10-02 18:17 | IPNPDOC ---
Subjective Review oF Systems Chief Complaint The patient is a 77-year-old female admitted with a reason for visit of Acute Myeloid Leukemia With Failed Remission. Genitourinary: Reports: Dysuria, Frequency, Incontinence, Hematuria, Retention, Other Symptoms (voiding without difficulty) Objective Physical Examination ABDOMEN EXAM: No: Normal bowel sounds, BS Hyperactive, BS Hypoactive, Soft, Tenderness, Hepatospenomegaly, Mass, Hernia, Other Vital Signs/I&O Vital Signs Date Time Temp Pulse Resp B/P (MAP) Pulse Ox O2 Delivery O2 Flow Rate FiO2 10/02/18 14:00 96.0 79 18 122/57 (78) 95 09/29/18 10:50 Room Air I&O- Last 24 Hours up to 6 AM 10/02/18 06:00 Intake Total 817 ml Output Total 1600 ml Balance -783 ml Laboratory Data Labs 24H Laboratory Tests 2 10/02/18 06:11: Nucleated Red Blood Cells % (auto) 3.3H, Anion Gap 5L, Glomerular Filtration Rate > 60.0, Blood Urea Nitrogen 18, Creatinine 0.45L, Sodium Level 142, Pota ssium Level 3.7, Chloride Level 108H, Carbon Dioxide Level 29, Calcium Level 7.8L, Aspartate Amino Transf (AST/SGOT) 70H, Alanine Aminotransferase (ALT/SGPT) 39, Alkaline Phosphatase 129H, Total Bilirubin 0.5, Total Protein 5.1L, Albumin 2.5L, Albumin/Globulin Ratio 0.96L CBC/BMP Laboratory Tests 10/02/18 06:11 Red Blood Count 2.33 L, Mean Corpuscular Volume 91.0, Mean Corpuscular Hemoglobin 30.5, Mean Corpuscular Hemoglobin Concent 33.5, Red Cell Distribution Width 15.3 H, Calcium Level 7.8 L, Aspartate Amino Transf (AST/SGOT) 70 H, Alanine Aminotransferase (ALT/SGPT) 39, Alkaline Phosphatase 129 H, Total Bilirubin 0.5, Total Protein 5.1 L, Albumin 2.5 L Microbiology Microbiology 10/01/18 Blood Culture - Preliminary, Resulted No growth after 24 hours . All specim... 10/01/18 Blood Culture - Preliminary, Resulted No growth after 24 hours . All specim... 10/01/18 Urine Culture, Received Pending A-FIB/CHADSVASC A-FIB History Current/History of A-Fib/PAF?: No Assessment/Plan Date Seen The patient was seen on 10/02/18. Patient Summary Patient with low platelets and gross hematuria. She is voiding with difficulty and is emptying her bladder. Urine color is a dark tea and not consistent with active bleeding. Problems (1) Hematuria Status: Acute Urology Problem Text: Nonobstructive hematuria and amount of hematuria not consistent with hemogroblin and hematicrit drop. (2) Thrombocytopenia (3) Acute on chronic anemia Status: Acute Plan/VTE VTE Prophylaxis Ordered?: No VTE Exclusion Pharmacological: Bleeding Risk Plan Continue current therapy. Replace platelets as needed and transfuse as needed VANNESA HUITRON MD October 02, 2018 18:17
[2018-10-02 22:00] VITALS: BP 115/56
[2018-10-03] MEDS: PIPERACILLIN/TAZOBACTAM SOD 4.5 GM in D5W MINI-BAG PLUS 50 ML IV SCH ×4 (03:00→21:24)
[2018-10-03] MEDS: SODIUM CHLORIDE 0.9% INJ 10 ML SYR IV SCH ×3 (05:50→18:00)
[2018-10-03 06:00] VITALS: BP 136/82
[2018-10-03 06:34] LABS: HEMATOCRIT 19.9 % (36.0-47.0); MEAN CORPUSCULAR HEMOGLOBIN 29.5 pg (27.0-33.0); MEAN CORPUSCULAR HGB CONC 32.7 g/dl (32.0-36.5); MEAN CORPUSCULAR VOLUME 90.5 fl (80.0-96.0); WHITE BLOOD COUNT 24.5 10^3/uL (4.0-10.0)
[2018-10-03 06:57] LABS: ALBUMIN 2.6 GM/DL (3.2-5.2); ALT/SGPT 39 U/L (12-78); BILIRUBIN,TOTAL 0.5 MG/DL (0.2-1.0); BLOOD UREA NITROGEN 17 MG/DL (7-18); CALCIUM LEVEL 8.4 MG/DL (8.8-10.2); CARBON DIOXIDE LEVEL 27 MEQ/L (21-32); CHLORIDE LEVEL 110 MEQ/L (98-107); CREATININE FOR GFR 0.41 MG/DL (0.55-1.30); GLOMERULAR FILTRATION RATE > 60.0 (>39); GLUCOSE, FASTING 85 MG/DL (70-100); POTASSIUM SERUM 3.8 MEQ/L (3.5-5.1); SODIUM LEVEL 142 MEQ/L (136-145); TOTAL PROTEIN 4.9 GM/DL (6.4-8.2)
[2018-10-03 07:03] LABS: HEMOGLOBIN 6.5 g/dl (12.0-15.5)
[2018-10-03 07:04] LABS: PLATELET COUNT, AUTOMATED 12 10^3/uL (150-450)
[2018-10-03] MEDS: VITAMIN D 1,000 INTERNATIONAL UNITS TABLET PO SCH (09:09)
[2018-10-03] MEDS: carBAMazepine XR 200 MG TAB PO SCH ×2 (09:09→21:25)
[2018-10-03 14:00] VITALS: BP 130/71
[2018-10-03 14:33] LABS: HEMATOCRIT 22.5 % (36.0-47.0); HEMOGLOBIN 7.6 g/dl (12.0-15.5); MEAN CORPUSCULAR HGB CONC 33.8 g/dl (32.0-36.5); MEAN CORPUSCULAR VOLUME 91.8 fl (80.0-96.0); RED BLOOD COUNT 2.45 10^6/uL (4.00-5.40); WHITE BLOOD COUNT 29.7 10^3/uL (4.0-10.0)
[2018-10-03 14:34] LABS: PLATELET COUNT, AUTOMATED 36 10^3/uL (150-450)
[2018-10-03] MEDS ORDERED: LIDOCAINE 1% MDV 20ML VIAL As Ordered ONE (15:40)
--- NOTE | 2018-10-03 16:29 | IPNPDOC ---
Date Seen The patient was seen on 10/03/18. Progress Note SUBJECTIVE: Patient looks well and has no complaints this morning. Hemoglobin 6.5 in a.m. and received 2 units PRBC. Platelets at 12, had 2 units of single donor platelets and underwent PICC repl acement with IR. Urine still dark. OBJECTIVE PHYSICAL EXAMINATION: VITAL SIGNS: Please see below. General: No acute distress, Alert Eyes: Normal sclera, EOMI, ANDREA HENT: Atraumatic, neck supple, moist mucous membranes Cardiovascular: Normal rate, normal rhythm. Pulmonary: Clear to auscultation b/l, no wheezing GI: Soft, nondistended, nontender Skin: Warm and dry Neuro: CN grossly intact. No focal deficits. Strengths equal b/l. Psych: oriented x 3 LABORATORY DATA, IMAGING STUDIES, MICROBIOLOGY: Please see below. DVT prophylaxis ordered?: yes CT Abdomen- mpression: Intrahepatic biliary duct dilatation as an interval change. Gallbladder distension as an interval change. Layering tiny gallbladder calculi. The common biliary duct is suboptimally demonstrated. Consider MRI cholangiopancreatography for further evaluation. Right hydronephrosis as an interval change. Consider ultrasound for confirmation. Additionally, consider CT urogram for further evaluation. I suspect the right ureter is dilated to the mid pelvis. Small focal perinephric stranding at the lateral right kidney. Hyperdense right renal lower pole cyst. Small bilateral pleural effusions, unchanged. Known aortic valve replacement. Abdominal US- Impression: 1. Distended gallbladder with heterogeneous wall thickening and trace pericholecystic fluid, but no gallstones. Findings are nonspecific and differential diagnosis includes biliary colic as well as acalculous cholecystitis. 2. Chronic medical renal disease without hydronephrosis. ASSESSMENT AND PLAN: 1. 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 - s/p 4 units pRBC and 6 Platelets. - Patient follows with Dr. Razo and normally transfuse 2x/weekly when hct <27 and Platelets <5 per daughter. Normal goal platelets >15 per Heme. - Will continue transfusion for now, if patient requires increasing frequency of transfusions from prior, may need to discuss with family regarding goals of care. 2. Hematuria/Rectal bleed - Likely 2/2 severe thrombocytopenia. - Rectal bleeding had stopped but still reported hematuria. - c/w monitor and transfuse as needed. - c/w PPI - Urology following. Patient had refused parker catheter for now. - Urine noted to be dark tea, not consistent with active bleeding. Likely will d/c in AM if Hb and Platelets close to patient's norm. 3. Abdominal Pain - Resolved. - CT scan as above with multiple findings including dilated intrahepatic ducts as well as dilated GB. - Abdominal US showed distended GB differential biliary colic vs. acalculous cholecystitis. - c/w IV Zosyn. Surgery evaluated, will treat as cholecystitis and complete 7 day course of Abx. - Bilirubin WNL. elevated ALP, AST slightly elevated at 74. - MCRP no significant findings. 4. Seizure disorder - c/w home meds. Code status: DNR Dispo: Plan for D/C in the next 24 to 48 hours if bleeding is more controlled and Hb/Platelets remained rematively acceptable for her norm. A-FIB/CHADSVASC A-FIB History Current/History of A-Fib/PAF?: No VS, I&O, 24H, Fishbone Vital Signs/I&O Vital Signs Date Time Temp Pulse Resp B/P (MAP) Pulse Ox O2 Delivery O2 Flow Rate FiO2 10/03/18 14:00 98.0 85 18 130/71 (90) 95 09/29/18 10:50 Room Air I&O- Last 24 Hours up to 6 AM 10/03/18 06:00 Intake Total 400 ml Output Total 800 ml Balance -400 ml Laboratory Data 24H LABS Laboratory Tests 2 10/03/18 06:04: Nucleated Red Blood Cells % (auto) 2.9H, Immature Platelet Fraction 8.2, Anion Gap 5L, Glomerular Filtration Rate > 60.0, Blood Urea Nitrogen 17, Creatinine 0.41L, Sodium Level 142, Potassium Level 3.8, Chloride Level 110H, Carbon Dioxide Level 27, Calcium Level 8.4L, Aspartate Amino Transf (AST/SGOT) 73H, Alanine Aminotransferase (ALT/SGPT) 39, Alkaline Phosphatase 123H, Total Bilirubin 0.5, Total Protein 4.9L, Albumin 2.6L, Albumin/Globulin Ratio 1.13 10/03/18 14:20: Nucleated Red Blood Cells % (auto) 3.0H CBC/BMP Laboratory Tests 10/03/18 06:04 Red Blood Count 2.20 L, Mean Corpuscular Volume 90.5, Mean Corpuscular Hemoglobin 29.5, Mean Corpuscular Hemoglobin Concent 32.7, Red Cell Distribution Width 15.4 H, Calcium Level 8.4 L, Aspartate Amino Transf (AST/SGOT) 73 H, Alanine Aminotransferase (ALT/SGPT) 39, Alkaline Phosphatase 123 H, Total Bilirubin 0.5, Total Protein 4.9 L, Albumin 2.6 L 10/03/18 14:20 Red Blood Count 2.45 L, Mean Corpuscular Volume 91.8, Mean Corpuscular Hemoglobin 31.0, Mean Corpuscular Hemoglobin Concent 33.8, Red Cell Distribution Width 14.9 H Microbiology Microbiology 10/01/18 Blood Culture - Preliminary, Resulted No Growth after 48 hours. All Specime... 10/01/18 Blood Culture - Preliminary, Resulted No Growth after 48 hours. All Specime... 10/01/18 Urine Culture, Received Pending WESTON COLLADO MD October 03, 2018 16:29
[2018-10-03] MEDS ORDERED: SODIUM CHLORIDE 0.9% INJ 10 ML SYR IV PRN (18:00)
--- NOTE | 2018-10-03 18:44 | REP ---
PICC line insertion under ultrasound guidance. The procedure was performed by ANDREW Duenas, under the direct supervision of Dr. Rabago. The risks and benefits of the procedure were explained to the patient and informed consent was obtained the verbally and written. Directly prior to the start of the procedure, a formal timeout was completed in the procedure room. The left brachial vein was localized using ultrasound guidance. The skin was prepped and draped in the sterile fashion. 3 ml 1% lidocaine was used as a local anesthetic. Using ultrasound guidance the left brachial vein was cannulated and a 0.018 guidewire was inserted and advanced to the SVC using fluoroscopic guidance. The needle was removed and a 4.5 [place] dilator and peel-away sheath was inserted over the guidewire. A 4.5 [place] single lumen catheter was cut to the length of 35 cm. The dilator was removed and the catheter was inserted over the guide wire with the tip ending in the SVC. The peel-away sheath was removed and the catheter was flushed with heparinized saline as per hospital protocol. The catheter was affixed to the skin and a sterile dressing was applied. The patient tolerated the procedure well and there were no immediate complications. 0.4 minutes of fluoroscopy y time was utilized for this procedure. Reviewed by ANDREW Solis 10/03/2018 05:33 P Electronically Signed by Carmine Rabago MD 10/03/2018 06:36 P
[2018-10-03 22:00] VITALS: BP 156/72
[2018-10-03] MEDS: ACETAMINOPHEN 500 MG TAB PO PRN (22:42)
[2018-10-04] MEDS: PIPERACILLIN/TAZOBACTAM SOD 4.5 GM in D5W MINI-BAG PLUS 50 ML IV SCH ×4 (03:07→20:20)
[2018-10-04] MEDS: SODIUM CHLORIDE 0.9% INJ 10 ML SYR IV SCH ×2 (05:34→15:23)
[2018-10-04 05:59] LABS: HEMATOCRIT 27.3 % (36.0-47.0); HEMOGLOBIN 9.1 g/dl (12.0-15.5); MEAN CORPUSCULAR HEMOGLOBIN 29.9 pg (27.0-33.0); MEAN CORPUSCULAR HGB CONC 33.3 g/dl (32.0-36.5); MEAN CORPUSCULAR VOLUME 89.8 fl (80.0-96.0); RED BLOOD COUNT 3.04 10^6/uL (4.00-5.40)
[2018-10-04 06:00] VITALS: BP 104/55
[2018-10-04 06:22] LABS: PLATELET COUNT, AUTOMATED 26 10^3/uL (150-450); WHITE BLOOD COUNT 32.6 10^3/uL (4.0-10.0)
[2018-10-04 06:24] LABS: ALBUMIN 2.6 GM/DL (3.2-5.2); ALT/SGPT 40 U/L (12-78); BILIRUBIN,TOTAL 0.7 MG/DL (0.2-1.0); BLOOD UREA NITROGEN 17 MG/DL (7-18); CALCIUM LEVEL 7.8 MG/DL (8.8-10.2); CARBON DIOXIDE LEVEL 28 MEQ/L (21-32); CHLORIDE LEVEL 109 MEQ/L (98-107); CREATININE FOR GFR 0.45 MG/DL (0.55-1.30); GLOMERULAR FILTRATION RATE > 60.0 (>39); GLUCOSE, FASTING 82 MG/DL (70-100); POTASSIUM SERUM 3.4 MEQ/L (3.5-5.1); SODIUM LEVEL 143 MEQ/L (136-145); TOTAL PROTEIN 5.2 GM/DL (6.4-8.2)
[2018-10-04] MEDS: VITAMIN D 1,000 INTERNATIONAL UNITS TABLET PO SCH (09:00)
[2018-10-04] MEDS: carBAMazepine XR 200 MG TAB PO SCH ×2 (09:00→20:20)
--- NOTE | 2018-10-04 10:53 | IPNPDOC ---
Date Seen The patient was seen on 10/04/18. Progress Note SUBJECTIVE: Patient continue to look well and has no complaints this morning. s/p 2 pRBC and 2 single donor platelets yesterday. Also had PICC exchanged yesterday. R. arm with new PICC appeared swollen with dressing saturated underneath but no ozzing outside of the bandage. Findings not unexpected. No pain reported, pulses intact. Reported urine has cleared up mostly. OBJECTIVE PHYSICAL EXAMINATION: VITAL SIGNS: Please see below. General: No acute distress, Alert Eyes: Normal sclera, EOMI, ANDREA HENT: Atraumatic, neck supple, moist mucous membranes Cardiovascular: Normal rate, normal rhythm. Pulmonary: Clear to auscultation b/l, no wheezing GI: Soft, nondistended, nontender Skin: Warm and dry Neuro: CN grossly intact. No focal deficits. Strengths equal b/l. Psych: oriented x 3 LABORATORY DATA, IMAGING STUDIES, MICROBIOLOGY: Please see below. DVT prophylaxis ordered?: yes CT Abdomen- mpression: Intrahepatic biliary duct dilatation as an interval change. Gallbladder distension as an interval change. Layering tiny gallbladder calculi. The common biliary duct is suboptimally demonstrated. Consider MRI cholangiopancreatography for further evaluation. Right hydronephrosis as an interval change. Consider ultrasound for confirmation. Additionally, consider CT urogram for further evaluation. I suspect the right ureter is dilated to the mid pelvis. Small focal perinephric stranding at the lateral right kidney. Hyperdense right renal lower pole cyst. Small bilateral pleural effusions, unchanged. Known aortic valve replacement. Abdominal US- Impression: 1. Distended gallbladder with heterogeneous wall thickening and trace pericholecystic fluid, but no gallstones. Findings are nonspecific and differential diagnosis includes biliary colic as well as acalculous cholecystitis. 2. Chronic medical renal disease without hydronephrosis. ASSESSMENT AND PLAN: 1. 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 - s/p 4 units pRBC and 6 Platelets. - Patient follows with Dr. Razo and normally transfuse 2x/weekly when hct <27 and Platelets <5 per daughter. Normal goal platelets >15 per Heme. - Will continue transfusion for now, if patient requires increasing frequency of transfusions from prior, may need to discuss with family regarding goals of care. 2. Hematuria/Rectal bleed - Likely 2/2 severe thrombocytopenia. - Rectal bleeding had stopped, hematuria almost completely resolved. - c/w monitor and transfuse as needed. - c/w PPI - Urology following. Patient had refused parker catheter. - Urine noted to be dark tea, not consistent with active bleeding. Urine color continued to return back to normal. 3. Abdominal Pain - Resolved. - CT scan as above with multiple findings including dilated intrahepatic ducts as well as dilated GB. - Abdominal US showed distended GB differential biliary colic vs. acalculous cholecystitis. - c/w IV Zosyn. Surgery evaluated, will treat as cholecystitis and complete 7 day course of Abx. - Bilirubin WNL. elevated ALP, AST slightly elevated at 74. - MCRP no significant findings. 4. Seizure disorder - c/w home meds. 5. R. arm swelling - post PICC placement. Pulses intact, no significant pain/discomfort. - Not unexpected findings given patient's severe thrombocytopenia. - Bleeding less than expected. No ozzing outside of dressing. - Monitor and likely can d/c in AM if does not worsening. Code status: DNR Dispo: Plan for D/C in the next 24 to 48 hours A-FIB/CHADSVASC A-FIB History Current/History of A-Fib/PAF?: No VS, I&O, 24H, Fishbone Vital Signs/I&O Vital Signs Date Time Temp Pulse Resp B/P (MAP) Pulse Ox O2 Delivery O2 Flow Rate FiO2 10/04/18 06:00 97.0 78 18 104/55 (71) 93 09/29/18 10:50 Room Air I&O- Last 24 Hours up to 6 AM 10/04/18 06:00 Intake Total 1140 ml Output Total 1200 ml Balance -60 ml Laboratory Data 24H LABS Laboratory Tests 2 10/03/18 14:20: Nucleated Red Blood Cells % (auto) 3.0H 10/04/18 05:00: Nucleated Red Blood Cells % (auto) 2.9H, Anion Gap 6L, Glomerular Filtration Rate > 60.0, Blood Urea Nitrogen 17, Creatinine 0.45L, Sodium Level 143, Potassium Level 3.4L, Chloride Level 109H, Carbon Dioxide Level 28, Calcium Level 7.8L, Aspartate Amino Transf (AST/SGOT) 91H, Alanine Aminotransferase ( ALT/SGPT) 40, Alkaline Phosphatase 136H, Total Bilirubin 0.7, Total Protein 5.2L, Albumin 2.6L, Albumin/Globulin Ratio 1.00 CBC/BMP Laboratory Tests 10/03/18 14:20 Red Blood Count 2.45 L, Mean Corpuscular Volume 91.8, Mean Corpuscular Hemoglobin 31.0, Mean Corpuscular Hemoglobin Concent 33.8, Red Cell Distribution Width 14.9 H 10/04/18 05:00 Red Blood Count 3.04 L, Mean Corpuscular Volume 89.8, Mean Corpuscular Hemoglobin 29.9, Mean Corpuscular Hemoglobin Concent 33.3, Red Cell Distribution Width 15.7 H, Calcium Level 7.8 L, Aspartate Amino Transf (AST/SGOT) 91 H, Alanine Aminotransferase (ALT/SGPT) 40, Alkaline Phosphatase 136 H, Total Bilirubin 0.7, Total Protein 5.2 L, Albumin 2.6 L Microbiology Microbiology 10/01/18 Blood Culture - Preliminary, Resulted No Growth after 72 hours. All specime... 10/01/18 Blood Culture - Preliminary, Resulted No Growth after 72 hours. All specime... 10/01/18 Urine Culture - Final, Complete WESTON COLLADO MD October 04, 2018 10:53
[2018-10-04 14:00] VITALS: BP 126/58
[2018-10-04] MEDS: ACETAMINOPHEN 500 MG TAB PO PRN (18:56)
[2018-10-04 22:00] VITALS: BP 138/63
[2018-10-05] MEDS: PIPERACILLIN/TAZOBACTAM SOD 4.5 GM in D5W MINI-BAG PLUS 50 ML IV SCH ×4 (02:37→20:42)
[2018-10-05] MEDS: SODIUM CHLORIDE 0.9% INJ 10 ML SYR IV SCH ×2 (05:23→16:58)
[2018-10-05 06:00] VITALS: BP 143/68
[2018-10-05 06:04] LABS: HEMATOCRIT 24.8 % (36.0-47.0); MEAN CORPUSCULAR HEMOGLOBIN 29.2 pg (27.0-33.0); MEAN CORPUSCULAR HGB CONC 32.3 g/dl (32.0-36.5); MEAN CORPUSCULAR VOLUME 90.5 fl (80.0-96.0); RED BLOOD COUNT 2.74 10^6/uL (4.00-5.40)
[2018-10-05 06:11] LABS: PLATELET COUNT, AUTOMATED 10 10^3/uL (150-450); WHITE BLOOD COUNT 33.1 10^3/uL (4.0-10.0)
[2018-10-05] MEDS: VITAMIN D 1,000 INTERNATIONAL UNITS TABLET PO SCH (08:54)
[2018-10-05] MEDS: carBAMazepine XR 200 MG TAB PO SCH ×2 (08:54→20:42)
--- NOTE | 2018-10-05 10:08 | REP ---
HISTORY: Hypoxia. COMPARISON: 08/05/2018 The technique utilized in obtaining the radiograph has magnified the cardiac silhouette and accentuated the interstitial markings. The right-sided PICC line catheter has been removed. There is a left-sided PICC line catheter in place, the tip is in the region of the proximal superior vena cava, however, the patient tilted and rotated to the left. PA view of the chest recommended for further evaluation if clinically necessary. Note is again made of previous median sternotomy and cardiomegaly accentuated by technique. There is a diffuse increase in the interstitial markings throughout the lung willis which represents a change from the prior exam. The pleural angles are mildly blunted. The osseous structures are within normal limits. IMPRESSION: 1. PICC line catheter as described above. 2. Interstitial edema with mild cardiomegaly and aortic valvular placement. 3. Other findings as described above. Electronically Signed by Derrick Fernandes DO 10/05/2018 10:22 A
--- NOTE | 2018-10-05 11:07 | IPNPDOC ---
Subjective Review oF Systems Chief Complaint The patient is a 77-year-old female admitted with a reason for visit of Acute Myeloid Leukemia With Failed Remission. Events since Last Encounter Still hematuria and voiding without difficulty Objective Physical Examination General Exam: Alert (oriented to person, place and time), Cooperative, No Acute Distress, Mild Distress, Moderate Distress, Severe Distress, Other (voiding without difficyulty and she was resting well when I saw here) ABDOMEN EXAM: No: Normal bowel sounds, BS Hyperactive, BS Hypoactive, Soft, Tenderness, Hepatospenomegaly, Mass, Hernia, Other (soft ) Vital Signs/I&O Vital Signs Date Time Temp Pulse Resp B/P (MAP) Pulse Ox O2 Delivery O2 Flow Rate FiO2 10/05/18 08:00 1.0 10/05/18 06:00 98.7 90 20 143/68 (93) 93 09/29/18 10:50 Room Air I&O- Last 24 Hours up to 6 AM 10/05/18 06:00 Intake Total 1040 ml Output Total 900 ml Balance 140 ml Laboratory Data Labs 24H Laboratory Tests 2 10/05/18 05:31: Nucleated Red Blood Cells % (auto) 2.6H, Immature Platelet Fraction 9.2 CBC/BMP Laboratory Tests 10/05/18 05:31 Red Blood Count 2.74 L, Mean Corpuscular Volume 90.5, Mean Corpuscular Hemoglobin 29.2, Mean Corpuscular Hemoglobin Concent 32.3, Red Cell Distribution Width 15.9 H Microbiology Microbiology 10/01/18 Blood Culture - Preliminary, Resulted No Growth after 72 hours. All specime... 10/01/18 Blood Culture - Preliminary, Resulted No Growth after 72 hours. All specime... 10/01/18 Urine Culture - Final, Complete A-FIB/CHADSVASC A-FIB History Current/History of A-Fib/PAF?: No Assessment/Plan Date Seen The patient was seen on 10/05/18. Problems (1) Hematuria Status: Acute Response to Treatment: Stable Discussed With: Family with Pt Consent (I spoke with the daughter the plan to follow up with DR. Stapleton in 3 weeks on afternoon. She is ok for disc harge from a urologic perspective when she is cleared from medical perspective. ) Urology Problem Text: Nonobstructive hematuria and amount of hematuria not consistent with hemogroblin and hematicrit drop. (2) Thrombocytopenia (3) Acute on chronic anemia Status: Acute Plan/VTE VTE Prophylaxis Ordered?: No VTE Exclusion Pharmacological: Bleeding Risk VANNESA HUITRON MD October 05, 2018 11:07
[2018-10-05] MEDS ORDERED: FUROSEMIDE 20 MG/2 ML VIAL (J1940) IV ONE (12:00)
[2018-10-05 14:00] VITALS: BP 105/57
[2018-10-05 22:00] VITALS: BP 119/70
[2018-10-06] MEDS: PIPERACILLIN/TAZOBACTAM SOD 4.5 GM in D5W MINI-BAG PLUS 50 ML IV SCH ×3 (02:49→15:00)
[2018-10-06] MEDS: SODIUM CHLORIDE 0.9% INJ 10 ML SYR IV SCH ×2 (05:11→17:31)
[2018-10-06 05:25] LABS: HEMATOCRIT 21.3 % (36.0-47.0); HEMOGLOBIN 7.1 g/dl (12.0-15.5); MEAN CORPUSCULAR HEMOGLOBIN 30.3 pg (27.0-33.0); MEAN CORPUSCULAR HGB CONC 33.3 g/dl (32.0-36.5); RED BLOOD COUNT 2.34 10^6/uL (4.00-5.40)
[2018-10-06 05:26] LABS: WHITE BLOOD COUNT 36.3 10^3/uL (4.0-10.0)
[2018-10-06 05:27] LABS: PLATELET COUNT, AUTOMATED 6 10^3/uL (150-450)
[2018-10-06 06:00] VITALS: BP 115/56
[2018-10-06] MEDS ORDERED: FUROSEMIDE 40 MG/4 ML VIAL (J1940) IV ONE (07:30)
[2018-10-06] MEDS ORDERED: POTASSIUM CHLORIDE 10 MEQ SR TABLET PO ONE (08:00)
[2018-10-06] MEDS: carBAMazepine XR 200 MG TAB PO SCH (09:09)
[2018-10-06] MEDS: VITAMIN D 1,000 INTERNATIONAL UNITS TABLET PO SCH (09:09)
[2018-10-06 14:00] VITALS: BP 109/52
[2018-10-06 17:48] LABS: PLATELET COUNT, AUTOMATED 31 10^3/uL (150-450)
--- NOTE | 2018-10-06 18:05 | DS.PDOC ---
Discharge Summary General Date of Admission September 30, 2018 at 15:30 Date of Discharge 10/06/18 Attending Physician: WESTON COLLADO MD Discharge Summary PROCEDURES PERFORMED DURING STAY: PICC line replacement. ADMITTING DIAGNOSES: 1. AML 2. Thrombocytopenia, anemia 3. Hematuria, rectal bleed 4. Seizure disorder DISCHARGE DIAGNOSES: 1. AML 2. Thrombocytopenia, anemia 3. Hematuria, rectal bleed 4. Seizure disorder 5. Acute hypoxia COMPLICATIONS/CHIEF COMPLAINT: Acute Myeloid Leukemia With Failed Remission. HISTORY OF PRESENT ILLNESS: "Patient is a 77-year-old female, past medical history significant for AML, hypertension, seizure disorder, presenting to the hospital on account of gross hematuria noted over the weekend and also blood in her stool. Patient usually is transfused platelets and packed red blood cells weekly and last treatment was Saturday when she was transfused one bag of platelets and 1 unit red blood cells. She is also usually monitored Mondays and every week. On presentation Hgb was 6.8 and platelet count was 4. Patient denied other symptoms. Denies chest pain, SOB, weakness, dizziness, palpitations. Locally she is followed for management of her AML by Dr Braden" HOSPITAL COURSE: He should admitted with rectal bleeding hematuria likely secondary to severe thrombocytopenia. She was giving multiple units of PRBC as well as platelets with eventual resolution of bleeding. Platelets noted to be very labile in setting of AML and requires transfusion almost every other day. Patient also noted to have acute episode of abdominal pain. CT abdomen showed evidence of cholecystitis, likely acalculous cholecystitis secondary to illness, treated with Zosyn with complete resolution of symptoms. Course of hospitalization complicated by acute hypoxia requiring 1L O2, likely 2/2 volume getting multiple units of blood products. Completed 5 days of Zosyn. She was given Lasix with some improvement but not enough to take her off of oxygen. Sats drop into low 80s without 1L on walking. She however is comfortable and denies any complaints including SOB and request to go home daily. She is clinically well and will discharge patient to follow up with PCP and Oncology. Discharge with 1L home O2, hopeful that this is very temporary and can be discontinued soon. She reports no complaints at this time and to go home post 2 units of single donor platelets. DISCHARGE MEDICATIONS: Please see below. ALLERGIES: Please see below. PHYSICAL EXAMINATION ON DISCHARGE: VITAL SIGNS: Please see below. General: No acute distress, Alert Eyes: Normal sclera, EOMI, ANDREA HENT: Atraumatic, neck supple, moist mucous membranes Cardiovascular: Normal rate, normal rhythm. Pulmonary: Clear to auscultation b/l, no wheezing GI: Soft, nondistended, nontender Skin: Warm and dry Neuro: CN grossly intact. No focal deficits. Strengths equal b/l. Psych: oriented x 3 LABORATORY DATA: Please see below. IMAGING: CT Abdomen- mpression: Intrahepatic biliary duct dilatation as an interval change. Gallbladder distension as an interval change. Layering tiny gallbladder calculi. The common biliary duct is suboptimally demonstrated. Consider MRI cholangiopancreatography for further evaluation. Right hydronephrosis as an interval change. Consider ultrasound for confirmation. Additionally, consider CT urogram for further evaluation. I suspect the right ureter is dilated to the mid pelvis. Small focal perinephric stranding at the lateral right kidney. Hyperdense right renal lower pole cyst. Small bilateral pleural effusions, unchanged. Known aortic valve replacement. Abdominal US- Impression: 1. Distended gallbladder with heterogeneous wall thickening and trace pericholecystic fluid, but no gallstones. Findings are nonspecific and differential diagnosis includes biliary colic as well as acalculous cholecystitis. 2. Chronic medical renal disease without hydronephrosis. ACTIVITY: [As tolerated]. DIET: Regular diet DISCHARGE PLAN: f/u with PCP and Onc within 1 week. c/w 1L home O2, Wean off O2 if possible. DISPOSITION: Home. DISCHARGE INSTRUCTIONS: f/u with PCP and Onc within 1 week. c/w 1L home O2, Wean off O2 if possible per physicians advice. f/u Dr. Stapleton in 3 weeks. ITEMS TO FOLLOWUP ON ON OUTPATIENT: None DISCHARGE CONDITION: [Stable]. TIME SPENT ON DISCHARGE: 45 minutes Vital Signs/I&Os Vital Signs Date Time Temp Pulse Resp B/P (MAP) Pulse Ox O2 Delivery O2 Flow Rate FiO2 10/06/18 14:02 92 1.0 10/06/18 14:00 98.6 96 17 109/52 (71) I&O- Last 24 Hours up to 6 AM 10/06/18 05:59 Intake Total 800 ml Output Total 1625 ml Balance -825 ml Laboratory Data Labs 24H Laboratory Tests 2 10/06/18 05:15: Nucleated Red Blood Cells % (auto) 1.8H 10/06/18 17:33: Immature Platelet Fraction 4.1 CBC/BMP Laboratory Tests 10/06/18 05:15 Red Blood Count 2.34 L, Mean Corpuscular Volume 91.0, Mean Corpuscular Hemoglobin 30.3, Mean Corpuscular Hemoglobin Concent 33.3, Red Cell Distribution Width 15.7 H 10/06/18 17:33 Microbiology Microbiology 10/01/18 Blood Culture - Final, Complete NO GROWTH AFTER 5 DAYS 10/01/18 Blood Culture - Final, Complete NO GROWTH AFTER 5 DAYS 10/01/18 Urine Culture - Final, Complete Discharge Medications Scheduled Carbamazepine (Carbamazepine ER) 400 Mg Tab, 400 MG PO BID, (Reported) Cholecalciferol (Vitamin D3) (Vitamin D3) 1,000 Unit Tab, 1,000 UNIT PO DAILY, (Reported) Scheduled PRN Acetaminophen (Acetaminophen) 500 Mg Tablet, 500 MG PO Q4H PRN for PAIN, (Reported) Allergies Coded Allergies: butorphanol (Verified Allergy, Severe, shortness of breath, 08/14/18) fentanyl (Verified Allergy, Severe, shortness of breath, 08/14/18) hydrocodone (Verified Allergy, Severe, shortness of breath, 08/14/18) meperidine (Verified Allergy, Severe, shortness of breath, 08/14/18) morphine (Verified Allergy, Severe, shortness of breath, 08/14/18) hydrochlorothiazide (Verified Adverse Reaction, Intermediate, possible diplopia, 08/14/18) RADHA Inhibitors (Verified Adverse Reaction, Mild, cough, 08/14/18) opium (anthroposophic) (Verified Adverse Reaction, Unknown, 08/14/18) WESTON COLLADO MD October 06, 2018 18:05
== END 2018-10-06 18:54 | disposition home health service (06) | DRG 835 ==
LOC: M ED 10:50 → M ED INP 14:19 → M MSPAV 16:02 → OBSVTOIN 09-30 15:30
PROVIDERS: ADMIT Internal Medicine; ATTEND Student in an Organized Health Care Education/Training Program
PROC: 30233R1 Transfusion of Nonautologous Platelets into Peripheral Vein, Percutaneous Approach (ICD-10-PCS; 2018-09-30)
PROC: 30233N1 Transfusion of Nonautologous Red Blood Cells into Peripheral Vein, Percutaneous Approach (ICD-10-PCS; principal; 2018-10-03)
PROC: 02HV33Z Insertion of Infusion Device into Superior Vena Cava, Percutaneous Approach (ICD-10-PCS; 2018-10-03)
DX: C92.02 Acute myeloblastic leukemia, in relapse (principal); K81.0 Acute cholecystitis; K62.5 Hemorrhage of anus and rectum; D69.6 Thrombocytopenia, unspecified; R31.9 Hematuria, unspecified; G40.909 Epilepsy, unspecified, not intractable, without status epilepticus; I10 Essential (primary) hypertension; Z88.5 Allergy status to narcotic agent; Z88.8 Allergy status to other drugs, medicaments and biological substances; Z79.899 Other long term (current) drug therapy; Z66 Do not resuscitate; Z95.2 Presence of prosthetic heart valve

== ENCOUNTER 2018-10-09 15:41 | Inpatient (IN) | payer MEDICARE, MEDICAID ==
[~2018-10-09] VITALS: Ht 162.6 cm; Wt 48.5 kg
[2018-10-09] VITALS (7 sets, daily range): BP systolic 101–118; BP diastolic 51–59
[~2018-10-09 15:41] MED LIST changes: +ACET500T15 PO
[2018-10-09 17:27] LABS: INR 1.22; PROTHROMBIN TIME 15.6 SECONDS (12.1-14.4)
[2018-10-09 17:28] LABS: HEMATOCRIT 15.4 % (36.0-47.0); MEAN CORPUSCULAR HEMOGLOBIN 29.2 pg (27.0-33.0); MEAN CORPUSCULAR HGB CONC 31.8 g/dl (32.0-36.5); MEAN CORPUSCULAR VOLUME 91.7 fl (80.0-96.0); RED BLOOD COUNT 1.68 10^6/uL (4.00-5.40)
[2018-10-09 17:35] LABS: WHITE BLOOD COUNT 82.4 10^3/uL (4.0-10.0)
[2018-10-09 17:36] LABS: HEMOGLOBIN 4.9 g/dl (12.0-15.5); PLATELET COUNT, AUTOMATED 8 10^3/uL (150-450)
[2018-10-09 17:50] LABS: ALBUMIN 2.7 GM/DL (3.2-5.2); ALT/SGPT 40 U/L (12-78); BILIRUBIN,TOTAL 0.5 MG/DL (0.2-1.0); BLOOD UREA NITROGEN 22 MG/DL (7-18); CALCIUM LEVEL 7.8 MG/DL (8.8-10.2); CARBON DIOXIDE LEVEL 30 MEQ/L (21-32); CHLORIDE LEVEL 106 MEQ/L (98-107); CREATININE FOR GFR 0.39 MG/DL (0.55-1.30); GLOMERULAR FILTRATION RATE > 60.0 (>39); GLUCOSE, FASTING 94 MG/DL (70-100); POTASSIUM SERUM 3.9 MEQ/L (3.5-5.1); SODIUM LEVEL 141 MEQ/L (136-145); TOTAL PROTEIN 4.8 GM/DL (6.4-8.2)
[2018-10-09 17:51] LABS: LYMPHOCYTES 8 % (16-52); MONOCYTES 1 % (0-8); NEUTROPHILS 9 % (35-75)
[2018-10-09 17:52] LABS: BLAST CELLS 81 % (0-0)
[2018-10-09 17:57] LABS: HYPOCHROMASIA 1+
[2018-10-09 17:58] LABS: PLATELET ESTIMATE MARKED DECREASE (NORMAL)
[2018-10-09 18:07] LABS: SMUDGE CELLS 2+
--- NOTE | 2018-10-09 18:23 | HPEPDOC ---
[facility] Medical History & Physical Date of Admission October 09, 2018 Date of Service: October 09, [address] Michelle Braden Attending Physician: WESTON COLLADO MD History and Physical CHIEF COMPLAINT: Anemia and weakness HISTORY OF PRESENT ILLNESS: Patient is a 77-year-old female with medical history of AML who follows with Dr. Braden as outpatient for twice weekly transfusion and Seizure disorder was sent into the ER after noted to have anemia with Hb in 5s range. Patient was recently discharged from [facility] for acute on chronic anemia and thrombocytopenia along with hematuria and rectal bleeding, which is the same problems she has now. Since discharge patient continue follow-up with home nurse and oncology for routine blood check and unfortunately did not take long before coming back this time. She was discharged with 1L O2 several days prior and has had intermittent need for increasing it to 2L as she has several episodes of drop into the 70s,80s%. She reports generalized weakness that is worse than when she was discharged otherwise denies any other particular complaints. PAST MEDICAL HISTORY: Refer to [facility] PAST SURGICAL HISTORY: R. wrist surgery Cardiac valve replacement SOCIAL HISTORY: Denies tobacco, alcohol or illicit drug use. FAMILY HISTORY: Mother with breast ca Father had COPD ALLERGIES: Please see below. REVIEW OF SYSTEMS: 10 point review of system negative except as stated in HPI HOME MEDICATIONS: Please see below. PHYSICAL EXAMINATION: General: Alert, generalized weakness, frail. Eyes: Normal sclera, EOMI, ANDREA HENT: Atraumatic, neck supple, moist mucous membranes Cardiovascular: Normal rate, normal rhythm. No murmurs appreciated. Pulmonary: b/l fine crackles. GI: Soft, nontender, nondistended Skin: Warm and dry Neuro: CN grossly intact. No focal deficits. Strengths equal b/l. Generalized weakness. Psych: oriented x 3 LABORATORY DATA: See below. IMAGING: None MICROBIOLOGY: Please see below. ASSESSMENT AND PLAN: 1. AML - Chronic anemia and thrombocytopenia with twice weekly transfusions outpatient with Oncologist Dr. Braden. - Hb 4.9 on presentation with platelet of 8. - Will give 2 units pRBC for now with 2 units of single donor platelets. - Will f/u AM CBC since it will take a long time to complete all these products. - Transfuse more if needed, cautious as patient does appear fluid overload and desat after given a lot of products in one day. - Give lasix if needed. - Patient follows with Dr. Razo and normally transfuse 2x/weekly. Aim for a goal for platelet >15 and Hb >7. - Will continue transfusion for now, if patient requires increasing frequency of transfusions from prior, may need to discuss with family regarding goals of care. 2. Hematuria/Rectal bleed - Likely 2/2 severe thrombocytopenia. - Patient and family does not want any aggressive intervention such as colonoscopy. - Will only monitor for now, will not consult GI. Transfuse as needed. - c/w PPI 3. Seizure disorder - c/w home meds. Code status: DNR DVT: Hold all AC due to bleeding Dispo: Home if and when stable Vital Signs Vital Signs Date Time Temp Pulse Resp B/P (MAP) Pulse Ox O2 Delivery O2 Flow Rate FiO2 10/09/18 17:11 99 20 91 Nasal Cannula 2.0 10/09/18 17:00 122/60 (80) 10/09/18 15:42 99.5 Laboratory Data Labs 24H Laboratory Tests 2 10/09/18 17:02: Immature Granulocyte % (Auto) , White Blood Count 82.4*H, Red Blood Count 1.68L, Hemoglobin 4.9*L, Hematocrit 15.4L, Mean Corpuscular Volume 91.7, Mean Corpuscular Hemoglobin 29.2, Mean Corpuscular Hemoglobin Concent 31.8L, Red Cell Distribution Width 15.6H, Platelet Count 8*L, Monocytes # (Auto) , Nucleated Red Blood Cells % (auto) 1.6H, Neutrophils 9L, Band Neutrophils 1, Lymphocytes (Manual) 8L, Monocytes (Manual) 1, Blastocytes 81H, Platelet Estimate MARKED DECREASE, Immature Platelet Fraction 30.7H, Hypochromasia 1+, Basophilic Stippling 1+, Prothrombin Time 15.6H, Prothromb Time International Ratio 1.22, Anion Gap 5L, Glomerular Filtration Rate > 60.0, Blood Urea Nitrogen 22H, Creatinine 0.39L, Sodium Level 141, Potassium Level 3.9, Chloride Level 106, Carbon Dioxide Level 30, Calcium Level 7.8L, Aspartate Amino Transf (AST/SGOT) 114H, Alanine Aminotransferase (ALT/SGPT) 40, Alkaline Phosphatase 146H, Total Bilirubin 0.5, Total Protein 4.8L, Albumin 2.7L, Albumin/Globulin Ratio 1.29 CBC/BMP Laboratory Tests 10/09/18 17:02 Red Blood Count 1.68 L, Mean Corpuscular Volume 91.7, Mean Corpuscular Hemoglobin 29.2, Mean Corpuscular Hemoglobin Concent 31.8 L, Red Cell Distribution Width 15.6 H, Monocytes # (Auto) , Calcium Level 7.8 L, Aspartate Amino Transf (AST/SGOT) 114 H, Alanine Aminotransferase (ALT/SGPT) 40, Alkaline Phosphatase 146 H, Total Bilirubin 0.5, Total Protein 4.8 L, Albumin 2.7 L Home Medications Scheduled Carbamazepine (Carbamazepine ER) 400 Mg Tab, 400 MG PO BID Cholecalciferol (Vitamin D3) (Vitamin D3) 1,000 Unit Tab, 1,000 UNIT PO DAILY Scheduled PRN Acetaminophen (Acetaminophen) 500 Mg Tablet, 500 MG PO Q4H PRN for PAIN Allergies Coded Allergies: butorphanol (Verified Allergy, Severe, shortness of breath, 08/14/18) fentanyl (Verified Allergy, Severe, shortness of breath, 08/14/18) hydrocodone (Verified Allergy, Severe, shortness of breath, 08/14/18) meperidine (Verified Allergy, Severe, shortness of breath, 08/14/18) morphine (Verified Allergy, Severe, shortness of breath, 08/14/18) hydrochlorothiazide (Verified Adverse Reaction, Intermediate, possible diplopia, 08/14/18) RADHA Inhibitors (Verified Adverse Reaction, Mild, cough, 08/14/18) opium (anthroposophic) (Verified Adverse Reaction, Unknown, 08/14/18) A-FIB/CHADSVASC A-FIB History Current/History of A-Fib/PAF?: No Current PO Anticoag Therapy: No WESTON COLLADO MD October 09, 2018 18:23
[2018-10-09] MEDS: PANTOPRAZOLE 40MG INJ (PROTONIX) (C9113) IV SCH (19:22)
[2018-10-09] MEDS: ONDANSETRON 4MG/2ML VIAL (J2405) IV PRN (20:12)
[2018-10-09] MEDS: MORPHINE 4 MG/ML 1ML VIAL/SYRINGE (J2270) IV PRN (20:28)
[2018-10-09] MEDS ORDERED: ACETAMINOPHEN 650 MG SUPP PR ONE (20:30)
--- NOTE | 2018-10-09 20:55 | ECGEPIP ---
[facility] - ED Test Date: 2018-10-09 Pat Name: TRACY LEWIS Department: Room: - Gender: Female Lead Application Architect: LUNA : 1940 Requested By: Graciela Delarosa Order Number: [id number] Reading MD: Graciela Delarosa Measurements Intervals [place] Rate: 99 P: 70 NM: 194 QRS: QRSD: 105 T: 113 QT: 369 QTc: 474 Interpretive Statements SINUS RHYTHM POSSIBLE LEFT ATRIAL ENLARGEMENT POSSIBLE ANTERIOR MYOCARDIAL INFARCTION, OF INDETERMINATE AGE POSSIBLE INFERIOR INFARCT SIMILAR 08/05/18 Electronically Signed on 10-09-2018 20:55:04 EDT by Graciela Delarosa
--- NOTE | 2018-10-09 21:15 | REP ---
Clinical: Nephrolithiasis. Technique: Axial noncontrast images from the lung bases to the pubic symphysis with coronal and sagittal re-formations. Comparison: 05/26/2018, 09/30/2018. Findings: Small bilateral pleural effusions (right greater than left) along with scattered atelectasis, small areas of consolidation, and elements of pulmonary vascular congestion/interstitial edema. Liver, pancreas, and bilateral adrenal glands are relatively normal for noncontrast evaluation. Splenomegaly is appreciated. Cholelithiasis noted without evidence for acute cholecystitis and intrahepatic biliary ductal dilatation cannot definitively be excluded. Evaluation of the urinary tract system demonstrates atrophic appearance to the right kidney without hydronephrosis as previously identified on 09/30/2018. The left kidney demonstrates compensatory enlargement with mild hydronephrosis versus peripelvic cysts, 6 mm nonobstructing lower pole calculus and subcentimeter rim calcified complex cyst. The enteric system demonstrates moderate fecal stasis without obstruction or acute inflammatory process. Pelvis demonstrates normal bladder and retroverted uterus with partially calcified myomatous changes. No ascites. No free air. No obvious adenopathy. Atherosclerotic changes to the aorta without aneurysm. Musculoskeletal structures demonstrate degenerative changes without focal osseous abnormality. Impression: 1. Mildly distended gallbladder with small layering stones appears slightly improved when compared to prior examination. 2. Previously noted right renal hydronephrosis has resolved and the right kidney actually demonstrates mild asymmetric atrophy. Left kidney demonstrates suspected peripelvic cysts and 6 mm nonobstructing lower pole calculus. 3. Further chronic changes as described above. 4. No acute abdominopelvic pathology otherwise noted. Specifically, no ascites, focal inflammatory stranding or obvious adenopathy. 5. Increased small pleural effusions with scattered atelectasis/small consolidations and evidence for pulmonary vascular congestion. Electronically Signed by Marcelino Yu MD 10/09/2018 09:05 P
[2018-10-09] MEDS ORDERED: FUROSEMIDE 20 MG/2 ML VIAL (J1940) IV ONE (21:30)
[2018-10-09] MEDS: carBAMazepine XR 200 MG TAB PO SCH (21:40)
[2018-10-10] VITALS (15 sets, daily range): BP systolic 100–132; BP diastolic 51–61
[2018-10-10] MEDS ORDERED: FUROSEMIDE 20 MG/2 ML VIAL (J1940) IV ONE
[2018-10-10] MEDS ORDERED: ACETAMINOPHEN TAB 650MG DOSE (2X325MG) PO PRN (06:00)
--- NOTE | 2018-10-10 06:27 | IPNPDOC ---
Text Note Date of Service The patient was seen on 10/10/18. NOTE At bout 7 45 pm last night while she was almost at the end of her first platelet transfusion she started complaining of severe left lower quadrant abdominal pain with nausea. The pain continued to progressively worsen and she started retching and vomiting. I ordered morphine 1 mg, davi for her which gave her symptomatic relief. 2 weeks prior also she had severe abdominal pain but that was on the right side. At that time CT abd showed bilateral renal stones and right hydro with possible GB pathology. GB abnormality was ruled out but a follow up MRCP. Yesterday there was severe et CVA tenderness, left iliac fossa tenderness. I felt she may be having renal colic. At CT scan showed left lower pole intrarenal calculi but there was no ureteric calculi to explain the pain. Overnight she also received 2 doses of lasix for SOB and increasing oxygen requirement. My other differential was whether she was having intraabdominal bleeding. She has not had any melena and CT did not show any intraabdominal hematoma. A-FIB/CHADSVASC A-FIB History Current/History of A-Fib/PAF?: No Current PO Anticoag Therapy: No VS,Fishbone, I+O VS, Fishbone, I+O Laboratory Tests 10/09/18 17:02 Red Blood Count 1.68 L, Mean Corpuscular Volume 91.7, Mean Corpuscular Hemoglobin 29.2, Mean Corpuscular Hemoglobin Concent 31.8 L, Red Cell Distribution Width 15.6 H, Monocytes # (Auto) , Calcium Level 7.8 L, Aspartate Amino Transf (AST/SGOT) 114 H, Alanine Aminotransferase (ALT/SGPT) 40, Alkaline Phosphatase 146 H, Total Bilirubin 0.5, Total Protein 4.8 L, Albumin 2.7 L Vital Signs Date Time Temp Pulse Resp B/P (MAP) Pulse Ox O2 Delivery O2 Flow Rate FiO2 10/10/18 04:25 98.9 99 22 132/61 (84) 93 3.0 10/09/18 18:11 Nasal Cannula I&O- Last 24 Hours up to 6 AM 10/10/18 06:00 Intake Total 900 ml Output Total 350 ml Balance 550 ml MAME SAEZ MD October 10, 2018 06:27
[2018-10-10] MEDS: MORPHINE 4 MG/ML 1ML VIAL/SYRINGE (J2270) IV PRN (07:45)
[2018-10-10 08:03] LABS: MEAN CORPUSCULAR HGB CONC 33.8 g/dl (32.0-36.5); MEAN CORPUSCULAR VOLUME 91.7 fl (80.0-96.0); RED BLOOD COUNT 2.29 10^6/uL (4.00-5.40)
[2018-10-10 08:16] LABS: HEMOGLOBIN 7.1 g/dl (12.0-15.5); PLATELET COUNT, AUTOMATED 30 10^3/uL (150-450); WHITE BLOOD COUNT 87.6 10^3/uL (4.0-10.0)
[2018-10-10 08:31] LABS: BLOOD UREA NITROGEN 22 MG/DL (7-18); CARBON DIOXIDE LEVEL 30 MEQ/L (21-32); CHLORIDE LEVEL 106 MEQ/L (98-107); CREATININE FOR GFR 0.46 MG/DL (0.55-1.30); GLOMERULAR FILTRATION RATE > 60.0 (>39); GLUCOSE, FASTING 89 MG/DL (70-100); POTASSIUM SERUM 3.5 MEQ/L (3.5-5.1); SODIUM LEVEL 143 MEQ/L (136-145)
--- NOTE | 2018-10-10 08:53 | REP ---
Clinical: Hypoxia. Comparison: 10/05/2018. Findings: Diffuse bilateral alveolar and interstitial infiltrates are appreciated and increased from prior examination. Mediastinum and cardiac silhouette are stable. Prior sternotomy and aortic valve repair noted. Left PICC line identified with tip in the subclavian vein. Skeletal structures intact. Impression: Increased bilateral multifocal infiltrates. Electronically Signed by Marcelino Yu MD 10/10/2018 08:44 A
[2018-10-10] MEDS: PANTOPRAZOLE 40MG INJ (PROTONIX) (C9113) IV SCH (10:55)
[2018-10-10] MEDS: carBAMazepine XR 200 MG TAB PO SCH ×2 (10:56→20:56)
--- NOTE | 2018-10-10 17:09 | IPNPDOC ---
Date Seen The patient was seen on 10/10/18. Progress Note SUBJECTIVE: Patient was noted to have LLQ abdominal pain with nausea overnight. Has had similar episode in the past that had resolved on its own. CT scan showed renal stones with GB abnormality but already had recent US. Pain improved after medication. s/p 2 units pRBC and 2 single donor platelets yesterday. OBJECTIVE PHYSICAL EXAMINATION: VITAL SIGNS: Please see below. General: Alert, generalized weakness, frail. Eyes: Normal sclera, EOMI, ANDREA HENT: Atraumatic, neck supple, moist mucous membranes Cardiovascular: Normal rate, normal rhythm. No murmurs appreciated. Pulmonary: b/l fine crackles. GI: Soft, nontender, nondistended Skin: Warm and dry Neuro: CN grossly intact. No focal deficits. Strengths equal b/l. Generalized weakness. Psych: oriented x 3 ASSESSMENT AND PLAN: 1. AML - Chronic anemia and thrombocytopenia with twice weekly transfusions outpatient with Oncologist Dr. Braden. - Hb 4.9 on presentation with platelet of 8. - s/p 2 units pRBC for now with 2 units of single donor platelets. - Transfuse more if needed, cautious as patient does appear fluid overload and desat after given a lot of products in one day. - Give lasix if needed. - Patient follows with Dr. Razo and normally transfuse 2x/weekly. Aim for a goal for platelet >15 and Hb >7. - Reassess daily and transfuse if needed. However, patient appear to be declining and require more frequent transfusions, which in turn seem to worsen her respiratory status. - AML may be getting more aggressive and goals of care may need to be re-discuss if she does not improve. She is of note DNR. 2. Hematuria/Rectal bleed - Likely 2/2 severe thrombocytopenia. - Patient and family does not want any aggressive intervention such as colonoscopy. - Will only monitor for now, will not consult GI. Transfuse as needed. - c/w PPI 3. Seizure disorder - c/w home meds. Code status: DNR DVT: Hold all AC due to bleeding Dispo: Home if and when stable VS, I&O, 24H, Fishbone Vital Signs/I&O Vital Signs Date Time Temp Pulse Resp B/P (MAP) Pulse Ox O2 Delivery O2 Flow Rate FiO2 10/10/18 16:00 98.3 90 22 119/57 (77) 90 3.0 5/23/19 18:11 Nasal Cannula I&O- Last 24 Hours up to 6 AM 10/10/18 06:00 Intake Total 1300 ml Output Total 350 ml Balance 950 ml Laboratory Data 24H LABS Laboratory Tests 2 10/10/18 07:40: Nucleated Red Blood Cells % (auto) 1.7H, Anion Gap 7L, Glomerular Filtration Rate > 60.0, Blood Urea Nitrogen 22H, Creatinine 0.46L, Sodium Level 143, Potassium Level 3.5, Chloride Level 106, Carbon Dioxide Level 30, Calcium Level 8.0L CBC/BMP Laboratory Tests 10/10/18 07:40 Red Blood Count 2.29 L, Mean Corpuscular Volume 91.7, Mean Corpuscular Hemoglobin 31.0, Mean Corpuscular Hemoglobin Concent 33.8, Red Cell Distribution Width 14.7 H, Calcium Level 8.0 L WESTON COLLADO MD October 10, 2018 17:09
[2018-10-11] VITALS (14 sets, daily range): BP systolic 109–170; BP diastolic 53–77
[2018-10-11] MEDS: MORPHINE 4 MG/ML 1ML VIAL/SYRINGE (J2270) IV PRN ×3 (02:55→16:03)
[2018-10-11 05:55] LABS: HEMATOCRIT 19.9 % (36.0-47.0); MEAN CORPUSCULAR HEMOGLOBIN 29.5 pg (27.0-33.0); MEAN CORPUSCULAR HGB CONC 32.2 g/dl (32.0-36.5); MEAN CORPUSCULAR VOLUME 91.7 fl (80.0-96.0); RED BLOOD COUNT 2.17 10^6/uL (4.00-5.40)
[2018-10-11 06:10] LABS: BLOOD UREA NITROGEN 24 MG/DL (7-18); CALCIUM LEVEL 7.8 MG/DL (8.8-10.2); CARBON DIOXIDE LEVEL 31 MEQ/L (21-32); CHLORIDE LEVEL 107 MEQ/L (98-107); CREATININE FOR GFR 0.44 MG/DL (0.55-1.30); GLOMERULAR FILTRATION RATE > 60.0 (>39); GLUCOSE, FASTING 98 MG/DL (70-100); POTASSIUM SERUM 3.8 MEQ/L (3.5-5.1); SODIUM LEVEL 143 MEQ/L (136-145)
[2018-10-11 06:25] LABS: HEMOGLOBIN 6.4 g/dl (12.0-15.5); WHITE BLOOD COUNT 100.8 10^3/uL (4.0-10.0)
[2018-10-11 06:26] LABS: PLATELET COUNT, AUTOMATED 16 10^3/uL (150-450)
[2018-10-11] MEDS: carBAMazepine XR 200 MG TAB PO SCH ×2 (09:50→21:00)
[2018-10-11] MEDS: PANTOPRAZOLE 40MG INJ (PROTONIX) (C9113) IV SCH (10:03)
--- NOTE | 2018-10-11 17:10 | IPNPDOC ---
Date Seen The patient was seen on 10/11/18. Progress Note SUBJECTIVE: Patient appear weaker and weaker everyday and Hb/Platelets continue to drop while WBC continue to increase. Oxygen requirement up to 4L now. Patient lethargic and sleeps all day. Had a long discussion with family and everyone is aware of her poor prognosis. Will continue transfusion only at this time but is leaning towards Comfort Measure Only possible soon. Do not want any aggressive interventions. Would avoid CT scans and workup for pain. 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 OBJECTIVE PHYSICAL EXAMINATION: VITAL SIGNS: Please see below. General: severe weakness, frail. Eyes: pale sclera, ANDREA HENT: Atraumatic, neck supple Cardiovascular: Normal rate, normal rhythm. No murmurs appreciated. Pulmonary: b/l fine crackles. GI: Soft, nondistended Skin: Warm and dry Neuro: CN grossly intact. No focal deficits. Generalized weakness. ASSESSMENT AND PLAN: 1. AML - Chronic anemia and thrombocytopenia with twice weekly transfusions outpatient with Oncologist Dr. Braden. - Hb 4.9 on presentation with platelet of 8. - Transfuse as needed daily for now but likely will transition to STAMPING OPERATOR in the next day or two and stop transfusions. - Patient appear to be doing worse with transfusion and becomes more fluid overloaded. - Family is aware and want to discuss Hospice/STAMPING OPERATOR, no decision made as of yet. - Give lasix if needed. - Patient follows with Dr. Razo and normally transfuse 2x/weekly. Aim for a goal for platelet >15 and Hb >7. 2. Hematuria/Rectal bleed - Likely 2/2 severe thrombocytopenia. - Patient and family does not want any aggressive intervention such as colonoscopy. - Will only monitor for now, will not consult GI. Transfuse as needed. - c/w PPI 3. Seizure disorder - c/w home meds. 4. Abdominal pain - CT noted. Do not do anymore scans. Treat symptoms only. Code status: DNR DVT: Hold all AC due to bleeding Dispo: Likely hospice if patient survives hospitalization VS, I&O, 24H, Fishbone Vital Signs/I&O Vital Signs Date Time Temp Pulse Resp B/P (MAP) Pulse Ox O2 Delivery O2 Flow Rate FiO2 10/11/18 16:13 20 93 4.0 10/11/18 16:02 98.6 126 131/63 (85) 10/09/18 18:11 Nasal Cannula I&O- Last 24 Hours up to 6 AM 10/11/18 06:00 Intake Total 185 ml Output Total 920 ml Balance -735 ml Laboratory Data 24H LABS Laboratory Tests 2 10/10/18 20:48: Bedside Glucose (Misc Panel) 118H 10/11/18 05:24: Nucleated Red Blood Cells % (auto) 1.7H, Immature Platelet Fraction 12.2H, Anion Gap 5L, Glomerular Filtration Rate > 60.0, Blood Urea Nitrogen 24H, Creatinine 0.44L, Sodium Level 143, Potassium Level 3.8, Chloride Level 107, Carbon Dioxide Level 31, Calcium Level 7.8L CBC/BMP Laboratory Tests 10/11/18 05:24 Red Blood Count 2.17 L, Mean Corpuscular Volume 91.7, Mean Corpuscular Hemoglobin 29.5, Mean Corpuscular Hemoglobin Concent 32.2, Red Cell Distribution Width 15.2 H, Calcium Level 7.8 L WESTON COLLADO MD October 11, 2018 17:10
[2018-10-11] MEDS ORDERED: FUROSEMIDE 40 MG/4 ML VIAL (J1940) IV ONE (18:30)
[2018-10-11] MEDS ORDERED: MORPHINE 4 MG/ML 1ML VIAL/SYRINGE (J2270) IV ONE (19:45)
[2018-10-11] MEDS: CARBAMAZEPINE 200 MG/10 ML GT SCH (21:50)
[2018-10-12] VITALS: BP 125/60
[2018-10-12] MEDS: MORPHINE 4 MG/ML 1ML VIAL/SYRINGE (J2270) IV PRN ×7 (00:15→23:38)
[2018-10-12 04:00] VITALS: BP 129/63
[2018-10-12 05:28] LABS: HEMATOCRIT 24.2 % (36.0-47.0); HEMOGLOBIN 8.2 g/dl (12.0-15.5); MEAN CORPUSCULAR HEMOGLOBIN 31.2 pg (27.0-33.0); MEAN CORPUSCULAR HGB CONC 33.9 g/dl (32.0-36.5); RED BLOOD COUNT 2.63 10^6/uL (4.00-5.40)
[2018-10-12 05:49] LABS: BLOOD UREA NITROGEN 31 MG/DL (7-18); CALCIUM LEVEL 8.5 MG/DL (8.8-10.2); CARBON DIOXIDE LEVEL 31 MEQ/L (21-32); CHLORIDE LEVEL 109 MEQ/L (98-107); CREATININE FOR GFR 0.53 MG/DL (0.55-1.30); GLOMERULAR FILTRATION RATE > 60.0 (>39); GLUCOSE, FASTING 101 MG/DL (70-100); POTASSIUM SERUM 3.5 MEQ/L (3.5-5.1); SODIUM LEVEL 146 MEQ/L (136-145)
[2018-10-12 06:01] LABS: PLATELET COUNT, AUTOMATED 10 10^3/uL (150-450); WHITE BLOOD COUNT 112.3 10^3/uL (4.0-10.0)
[2018-10-12 08:00] VITALS: BP 142/69
[2018-10-12] MEDS: CARBAMAZEPINE 200 MG/10 ML GT SCH ×2 (09:52→13:00)
[2018-10-12] MEDS: PANTOPRAZOLE 40MG INJ (PROTONIX) (C9113) IV SCH (09:52)
--- NOTE | 2018-10-12 10:36 | IPNPDOC ---
Date Seen The patient was seen on 10/12/18. Progress Note SUBJECTIVE: Patient appeared a bit more alert today. Keep saying she has to urinate. Has a pure wick but refuses to go, seems confused. Hb 8.2 today. Platelets 10, to give 1 unit of platelets. WBC continues to trend up, 112 today from 100. 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 OBJECTIVE PHYSICAL EXAMINATION: VITAL SIGNS: Please see below. General: severe weakness, frail. Eyes: pale sclera, ANDREA HENT: Atraumatic, neck supple Cardiovascular: Normal rate, normal rhythm. No murmurs appreciated. Pulmonary: b/l fine crackles. GI: Soft, nondistended Skin: Warm and dry Neuro: CN grossly intact. No focal deficits. Generalized weakness. ASSESSMENT AND PLAN: 1. AML - Chronic anemia and thrombocytopenia with twice weekly transfusions outpatient with Oncologist Dr. Braden. - Hb 4.9 on presentation with platelet of 8. 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 - Patient appear to be doing worse with transfusion and becomes more fluid overl oaded. - Family is aware and want to discuss Hospice/BUSINESS PROCESS ASSOCIATE, no decision made as of yet. - Give lasix if needed. - Patient follows with Dr. Razo and normally transfuse 2x/weekly. Aim for a goal for platelet >15 and Hb >7. 2. Hematuria/Rectal bleed - Likely 2/2 severe thrombocytopenia. - Patient and family does not want any aggressive intervention such as colonoscopy. - Will only monitor for now, will not consult GI. Transfuse as needed. - c/w PPI 3. Seizure disorder - c/w home meds. 4. Abdominal pain - CT noted. Do not do anymore scans. Treat symptoms only. Code status: DNR DVT: Hold all AC due to bleeding Dispo: Likely hospice if patient survives hospitalization VS, I&O, 24H, Fishbone Vital Signs/I&O Vital Signs Date Time Temp Pulse Resp B/P (MAP) Pulse Ox O2 Delivery O2 Flow Rate FiO2 10/12/18 10:02 16 10/12/18 08:00 4.0 10/12/18 08:00 99.2 109 142/69 (93) 91 10/09/18 18:11 Nasal Cannula I&O- Last 24 Hours up to 6 AM 10/12/18 06:00 Intake Total 1180 ml Output Total 1100 ml Balance 80 ml Laboratory Data 24H LABS Laboratory Tests 2 10/12/18 04:57: Nucleated Red Blood Cells % (auto) 1.6H, Anion Gap 6L, Glomerular Filtration Rate > 60.0, Blood Urea Nitrogen 31H, Creatinine 0.53L, Sodium Level 146H, Potassium Level 3.5, Chloride Level 109H, Carbon Dioxide Level 31, Calcium Level 8.5L CBC/BMP Laboratory Tests 10/12/18 04:57 Red Blood Count 2.63 L, Mean Corpuscular Volume 92.0, Mean Corpuscular Hemoglobin 31.2, Mean Corpuscular Hemoglobin Concent 33.9, Red Cell Distribution Width 15.1 H, Calcium Level 8.5 L WESTON COLLADO MD October 12, 2018 10:36
[2018-10-12] MEDS ORDERED: ACETAMINOPHEN 650 MG SUPP PR PRN (13:15)
[2018-10-12 20:49] VITALS: BP 142/69
[2018-10-13] MEDS: MORPHINE 4 MG/ML 1ML VIAL/SYRINGE (J2270) IV PRN ×8 (04:04→13:12)
[2018-10-13] MEDS: ONDANSETRON 4MG/2ML VIAL (J2405) IV PRN ×2 (08:19→11:35)
--- NOTE | 2018-10-13 09:29 | IPNPDOC ---
Date Seen The patient was seen on 10/13/18. 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 All bloodwork and transfusion had been discontinued. Currently on Morphine IV PRN for comfort measure. Patient is less responsive today. Does not open eyes to communicate this morning. OBJECTIVE PHYSICAL EXAMINATION: VITAL SIGNS: Please see below. General: frail, minimal responsiveness. Eyes: pale sclera, ANDREA. HENT: Atraumatic, neck supple Cardiovascular: No murmurs appreciated. Pulmonary: b/l fine crackles. GI: Soft, nondistended Skin: Warm and dry Neuro: Minimal responsiveness. Does not follow commands. ASSESSMENT AND PLAN: Patient is 77-year-old female with past medical history of AML who follows with oncology for biweekly transfusions. Recently admitted [facility] for anemia and thrombocytopenia with hematuria and rectal bleed. Patient developed shortness of breath during a previous admission and will place on oxygen after getting multiple transfusions. Symptoms did not improve and continue to get weaker with persistent anemia and thrombocytopenia and was readmitted for similar problems. WBC continued to trend up to 112 while she continues to clinically decline. She had been DNR/DNI but was made MONITORING ANALYST 10/12/18 after family discussion. To stop all blood draws and transfusions, to keep comfortable on morphine only at this time. VS, I&O, 24H, Fishbone Vital Signs/I&O Vital Signs Date Time Temp Pulse Resp B/P (MAP) Pulse Ox O2 Delivery O2 Flow Rate FiO2 10/13/18 06:15 14 10/12/18 20:49 99.2 109 142/69 91 4.0 10/09/18 18:11 Nasal Cannula I&O- Last 24 Hours up to 6 AM 10/13/18 06:00 Intake Total 120 ml Output Total 600 ml Balance -480 ml WESTON COLLADO MD October 13, 2018 09:29
[2018-10-13] MEDS ORDERED: MORPHINE SULF IN 0.9% NACL 100 MG in APPROPRIATE DILUENT 1 EA IV SCH ×2 (13:15)
[2018-10-13] MEDS ORDERED: EPIDURAL/PCA KEYS XX PRN (13:30)
[2018-10-13] MEDS ORDERED: NS 1,000 ML IV SCH (13:30)
[2018-10-13] MEDS ORDERED: LORazepam 2 MG/ML VIAL (J2060) IV ONE (15:45)
--- NOTE | 2018-10-13 17:08 | DS.PDOC ---
Discharge Summary General Date of Admission October 09, 2018 at 18:23 Date of Discharge 10/13/18 Discharge Summary Discharge/ Note PROCEDURES PERFORMED DURING STAY: [None]. ADMITTING DIAGNOSES: 1. AML 2. Hematuria/Rectal bleed 3. Seizure disorder DISCHARGE DIAGNOSES: 1. AML 2. Hematuria/Rectal bleed 3. Seizure disorder COMPLICATIONS/CHIEF COMPLAINT: Aml With Failed Remission,Anemia,Hematuria,Thrombo. HISTORY OF PRESENT ILLNESS: "Patient is a 77-year-old female with medical history of AML who follows with Dr. Braden as outpatient for twice weekly transfusion and Seizure disorder was sent into the ER after noted to have anemia with Hb in 5s range. Patient was recently discharged from [facility] for acute on chronic anemia and thrombocytopenia along with hematuria and rectal bleeding, which is the same problems she has now. Since discharge patient continue follow-up with home nurse and oncology for routine blood check and unfortunately did not take long before coming back this time. She was discharged with 1L O2 several days prior and has had intermittent need for increasing it to 2L as she has several episodes of drop into the 70s,80s%. She reports generalized weakness that is worse than when she was discharged otherwise denies any other particular complaints. " HOSPITAL COURSE: Patient was admitted for symptomatic anemia with severe thrombocytopenia. She was given multiple transfusions of pRBC and Platelets without significant improvement. WBC continues to climb up to 112 when it was last checked while Hb and Platelets continue to decline. Patient was made [employer] by family members after lengthy discussion/meeting. Patient was made comfortable and all blood draws/transfusions were stopped until patient peacefully passed today. Many family members were present at bedside. She is very fortunate as family had time to prepare and all had a chance to say goodbye. Time of : 15:43 October 13, 2018 Vital Signs/I&Os Vital Signs Date Time Temp Pulse Resp B/P (MAP) Pulse Ox O2 Delivery O2 Flow Rate FiO2 10/13/18 06:15 14 10/12/18 20:49 99.2 109 142/69 91 4.0 10/09/18 18:11 Nasal Cannula I&O- Last 24 Hours up to 6 AM 10/13/18 06:00 Intake Total 120 ml Output Total 600 ml Balance -480 ml Discharge Medications Scheduled Carbamazepine (Carbamazepine ER) 400 Mg Tab, 400 MG PO BID, (Reported) Cholecalciferol (Vitamin D3) (Vitamin D3) 1,000 Unit Tab, 1,000 UNIT PO DAILY, (Reported) Scheduled PRN Acetaminophen (Acetaminophen) 500 Mg Tablet, 500 MG PO Q4H PRN for PAIN, (Reported) Allergies Coded Allergies: butorphanol (Verified Allergy, Severe, shortness of breath, 10/09/18) fentanyl (Verified Allergy, Severe, shortness of breath, 10/09/18) hydrocodone (Verified Allergy, Severe, shortness of breath, 10/09/18) meperidine (Verified Allergy, Severe, shortness of breath, 10/09/18) morphine (Verified Allergy, Severe, shortness of breath, 10/09/18) hydrochlorothiazide (Verified Adverse Reaction, Intermediate, possible diplopia, 10/09/18) RADHA Inhibitors (Verified Adverse Reaction, Mild, cough, 10/09/18) opium (anthroposophic) (Verified Adverse Reaction, Unknown, 10/09/18) WESTON COLLADO MD October 13, 2018 17:08
== END 2018-10-13 15:43 | disposition expired | DRG 835 ==
LOC: M ED 15:41 → M ED INP 18:23 → M ICU 21:04 → M MSPAV 10-13 09:19
PROVIDERS: ADMIT Student in an Organized Health Care Education/Training Program; ATTEND Student in an Organized Health Care Education/Training Program
PROC: 30233N1 Transfusion of Nonautologous Red Blood Cells into Peripheral Vein, Percutaneous Approach (ICD-10-PCS; principal; 2018-10-09)
PROC: 30233R1 Transfusion of Nonautologous Platelets into Peripheral Vein, Percutaneous Approach (ICD-10-PCS; 2018-10-09)
DX: C92.00 Acute myeloblastic leukemia, not having achieved remission (principal); K62.5 Hemorrhage of anus and rectum; G40.909 Epilepsy, unspecified, not intractable, without status epilepticus; R31.9 Hematuria, unspecified; D69.6 Thrombocytopenia, unspecified; Z79.899 Other long term (current) drug therapy; Z66 Do not resuscitate; Z51.5 Encounter for palliative care